=== PATIENT | male | born 1950 | race Caucasian/White ===

== ENCOUNTER 2016-10-17 11:04 | Inpatient (IN) | payer MEDICARE ==
[2016-10-17] MEDS ORDERED: IBUPROFEN IV 600 MG in SODIUM CHLORIDE 0.9% 250 ML IV STA (11:28)
[2016-10-17] MEDS ORDERED: SODIUM CHLORIDE 0.9% 1,000 ML IV STA (11:28)
--- NOTE | 2016-10-17 11:31 | ED ---
General Adult HPI - General Chief complaint: Weakness Stated complaint: revisit-infection Time Seen by Provider: 10/17/16 11:10 Source: patient, family, RN notes reviewed Mode of arrival: wheelchair Limitations: no limitations - History of Present Illness Initial comments: This is a 58-year-old male who presents emergency Department with a past medical history significant for multiple myeloma. Patient presents emergency Department after having been seen in the emergency department yesterday for diarrhea fever and was eventually diagnosed with a possible urinary tract infection. Patient states he went home he continued to have a fever and chills. Patient states he continues to have diarrhea. He has weakness is gotten worse and so he thought he come to the emergency department to be evaluated. Patient has been on a maintenance dose of chemotherapy up until October 04 at which point it was stopped because it did not seem to be effective any longer. Patient states he also has a moderate headache at this time. Patient denies any nausea or vomiting. Patient denies any chest pain or palpitations. Patient denies any cough or difficulty breathing. Patient denies any abdominal pain. Patient denies any dysuria however he does state he had a little bit of frequency. - Related Data Home Medications Medication Instructions Recorded Confirmed Acyclovir 400 mg PO BID 06/28/15 10/16/16 Levothyroxine Sodium [Synthroid] 50 mcg PO DAILY 06/28/15 10/16/16 Ranitidine HCl [Zantac] 150 mg PO HS PRN 06/28/15 10/16/16 Simvastatin [Zocor] 20 mg PO HS 06/28/15 10/16/16 Tamsulosin HCl [Flomax] 0.4 mg PO HS 06/28/15 10/16/16 Ubidecarenone [Co Q-10] 100 mg PO DAILY 06/28/15 10/16/16 Docusate [Colace] 100 mg PO BID 02/02/16 10/16/16 Calcium Carbonate/Vitamin D3 1 tab PO DAILY 02/07/16 10/16/16 [Calcium 600-Vit D3 400 Tablet] Dexamethasone [Hexadrol] 40 mg PO WEEKLY 04/25/16 10/16/16 Daratumumab [Darzalex] 400 mg IV DIRECTED 09/12/16 10/16/16 Pomalidomide [Pomalyst] 3 mg PO DIRECTED 09/12/16 10/16/16 Previous Rx's Medication Instructions Recorded HYDROcodone/APAP 10-325MG [[place] 1 each PO Q4H PRN #0 tab 02/11/16 10-325] Amoxicillin/Potassium Clav 1 tab PO Q12HR #20 tab 09/12/16 [Augmentin 875-125 Tablet] Sulfamethox-Tmp 800-160Mg [Bactrim 1 each PO Q12HR #20 tab 10/16/16 DS 800-160 mg] Allergies Allergy/AdvReac Type Severity Reaction Status Date / Time No Known Allergies Allergy Verified 10/17/16 11:12 Review of Systems ROS Statement: Those systems with pertinent positive or pertinent negative responses have been documented in the HPI. ROS Other: All systems not noted in ROS Statement are negative. Past Medical History Past Medical History: Cancer, GERD/Reflux, Hyperlipidemia, Sleep Apnea/CPAP/ BIPAP, Thyroid Disorder Additional Past Medical History / Comment(s): back fracture t-12, multiple myloma, skin cancer with removals upper back and forehead, hypothyroidism, [place] bilaterally, [place] with CPAP, unsteady gait with back pain. 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 Past Anesthesia/Blood Transfusion Reactions: No Reported Reaction Additional Past Anesthesia/Blood Transfusion Reaction / Comment(s): Pt received blood in past without reaction. 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 He is normally independent. He uses no assistive device. He drives. His gait is unsteady with his back pain. Smoking Status: Never smoker Past Alcohol Use History: Occasional Past Drug Use History: None Reported - Past Family History Mother Family Medical History: No Reported History Additional Family Medical History / Comment(s): Mother was healthy and lived to be 90 yrs old. Father Family Medical History: Cancer Additional Family Medical History / Comment(s): Father of pancreatic cancer at age 76 yrs. Brother(s) Family Medical History: Cancer General Exam - General Exam Comments Initial Comments: GENERAL: Patient is well-developed and well-nourished. Patient is nontoxic and well- hydrated and is in mild distress. ENT: Neck is soft and supple. No significant lymphadenopathy is noted. Oropharynx is clear. Moist mucous membranes. Neck has full range of motion without eliciting any pain. EYES: The sclera were anicteric and conjunctiva were pink and moist. Extraocular movements were intact and pupils were equal round and reactive to light. Eyelids were unremarkable. PULMONARY: Unlabored respirations. Good breath sounds bilaterally. No audible rales rhonchi or wheezing was noted. CARDIOVASCULAR: There is a regular rate and rhythm without any murmurs gallops or rubs. ABDOMEN: Soft and nontender with normal bowel sounds. No palpable organomegaly was noted. There is no palpable pulsatile mass. SKIN: Patient has a chronic rash on the right upper aspect of his chest in the center of his chest. Patient states this is part of his multiple myeloma NEUROLOGIC: Patient is alert and oriented x3. Cranial nerves II through XII are grossly intact. Motor and sensory are also intact. Normal speech, volume and content. Symmetrical smile. MUSCULOSKELETAL: Normal extremities with adequate strength and full range of motion. No lower extremity swelling or edema. No calf tenderness. LYMPHATICS: No significant lymphadenopathy is noted PSYCHIATRIC: Normal psychiatric evaluation. Normal interpersonal interactions appears functionally intact in deals appropriately with others. No signs of depression. Limitations: no limitations Course Vital Signs 10/17/16 11:09 Temperature 98.9 F Pulse Rate 90 Respiratory 20 Rate Blood Pressure 89/53 O2 Sat by Pulse 99 Oximetry Medical Decision Making - Medical Decision Making Patient 55 white cells in the urine so I started him on Rocephin and admitted the patient. - Lab Data Result diagrams: 10/17/16 12:10 10/17/16 12:10 Lab Results 10/17/16 10/17/16 10/17/16 Range/Units 12:05 12:10 12:10 WBC 5.6 (3.8-10.6) k/uL RBC 2.96 L (4.30-5.90) m/uL Hgb 10.0 L (13.0-17.5) gm/dL Hct 31.8 L (39.0-53.0) % MCV 107.4 H (80.0-100.0) fL MCH 33.9 (25.0-35.0) pg MCHC 31.5 (31.0-37.0) g/dL RDW 15.0 (11.5-15.5) % Plt Count 318 (150-450) k/uL Neutrophils % 90 % Lymphocytes % 3 % Monocytes % 4 % Eosinophils % 1 % Basophils % 0 % Neutrophils # 5.0 (1.3-7.7) k/uL Lymphocytes # 0.2 L (1.0-4.8) k/uL Monocytes # 0.2 (0-1.0) k/uL Eosinophils # 0.1 (0-0.7) k/uL Basophils # 0.0 (0-0.2) k/uL Manual Slide Review Performed Hypochromasia Moderate Poikilocytosis (manual Present Macrocytosis Marked Sodium 140 (137-145) mmol/L Potassium 3.6 (3.5-5.1) mmol/L Chloride 104 (98-107) mmol/L Carbon Dioxide 20 L (22-30) mmol/L Anion Gap 16 mmol/L BUN 14 (9-20) mg/dL Creatinine 0.91 (0.66-1.25) mg/dL Est GFR (MDRD) Af Amer >60 (>60 ml/min/1.73 sqM) Est GFR (MDRD) Non-Af >60 (>60 ml/min/1.73 sqM) Glucose 82 (74-99) mg/dL Plasma Lactic Acid Vinny (0.7-2.0) mmol/L Calcium 8.4 (8.4-10.2) mg/dL Total Bilirubin 0.6 (0.2-1.3) mg/dL AST 93 H (17-59) U/L ALT 190 H (21-72) U/L Alkaline Phosphatase 154 H (38-126) U/L Total Protein 5.1 L (6.3-8.2) g/dL Albumin 2.7 L (3.5-5.0) g/dL Urine Color Yellow Urine Appearance Cloudy (Clear) Urine pH 5.5 (5.0-8.0) Ur Specific [place] 1.027 (1.001-1.035) Urine Protein 2+ H (Negative) Urine Glucose (UA) Negative (Negative) Urine Ketones 2+ H (Negative) Urine Blood Small H (Negative) Urine Nitrate Negative (Negative) Urine Bilirubin 1+ H (Negative) Urine Urobilinogen 3.0 (<2.0) mg/dL Ur Leukocyte Esterase Large H (Negative) Urine RBC 11 H (0-5) /hpf Urine WBC 55 H (0-5) /hpf Ur Squamous Epith Cells 3 (0-4) /hpf Hyaline Casts 42 H (0-2) /lpf Urine Mucus Many H (None) /hpf 10/17/16 Range/Units 12:10 WBC (3.8-10.6) k/uL RBC (4.30-5.90) m/uL Hgb (13.0-17.5) gm/dL Hct (39.0-53.0) % MCV (80.0-100.0) fL MCH (25.0-35.0) pg MCHC (31.0-37.0) g/dL RDW (11.5-15.5) % Plt Count (150-450) k/uL Neutrophils % % Lymphocytes % % Monocytes % % Eosinophils % % Basophils % % Neutrophils # (1.3-7.7) k/uL Lymphocytes # (1.0-4.8) k/uL Monocytes # (0-1.0) k/uL Eosinophils # (0-0.7) k/uL Basophils # (0-0.2) k/uL Manual Slide Review Hypochromasia Poikilocytosis (manual Macrocytosis Sodium (137-145) mmol/L Potassium (3.5-5.1) mmol/L Chloride (98-107) mmol/L Carbon Dioxide (22-30) mmol/L Anion Gap mmol/L BUN (9-20) mg/dL Creatinine (0.66-1.25) mg/dL Est GFR (MDRD) Af Amer (>60 ml/min/1.73 sqM) Est GFR (MDRD) Non-Af (>60 ml/min/1.73 sqM) Glucose (74-99) mg/dL Plasma Lactic Acid Vinny 1.1 (0.7-2.0) mmol/L Calcium (8.4-10.2) mg/dL Total Bilirubin (0.2-1.3) mg/dL AST (17-59) U/L ALT (21-72) U/L Alkaline Phosphatase (38-126) U/L Total Protein (6.3-8.2) g/dL Albumin (3.5-5.0) g/dL Urine Color Urine Appearance (Clear) Urine pH (5.0-8.0) Ur Specific [place] (1.001-1.035) Urine Protein (Negative) Urine Glucose (UA) (Negative) Urine Ketones (Negative) Urine Blood (Negative) Urine Nitrate (Negative) Urine Bilirubin (Negative) Urine Urobilinogen (<2.0) mg/dL Ur Leukocyte Esterase (Negative) Urine RBC (0-5) /hpf Urine WBC (0-5) /hpf Ur Squamous Epith Cells (0-4) /hpf Hyaline Casts (0-2) /lpf Urine Mucus (None) /hpf Disposition Clinical Impression: Generalized weakness, Urinary tract infection, Diarrhea Disposition: ADMITTED IP TO THIS [facility] Time of Disposition: 14:19
[2016-10-17 12:21] LABS: Basophils % (A) 0 %; CHCM 30.9; Eosinophils # (A) 0.1 k/uL (0-0.7); Eosinophils % (A) 1 %; HCT 31.8 % (39.0-53.0); HDW 3.25; Hypochromasia Moderate; Luc % (Auto) 2; Lymphocytes # (A) 0.2 k/uL (1.0-4.8); Lymphocytes % (A) 3 %; MCH 33.9 pg (25.0-35.0); MCHC 31.5 g/dL (31.0-37.0); MCV 107.4 fL (80.0-100.0); Macrocytosis Marked; Mean Platelet Volume 7.3; Monocytes # (A) 0.2 k/uL (0-1.0); Monocytes % (A) 4 %; Neutrophils % (A) 90 %; RBC 2.96 m/uL (4.30-5.90); WBC 5.6 k/uL (3.8-10.6); WBC (Perox) 6.42
[2016-10-17 12:29] LABS: ALT 190 U/L (21-72); AST 93 U/L (17-59); Alkaline Phosphatase 154 U/L (38-126); Anion Gap 16 mmol/L; Blood Urea Nitrogen 14 mg/dL (9-20); Calcium 8.4 mg/dL (8.4-10.2); Carbon Dioxide 20 mmol/L (22-30); Chloride 104 mmol/L (98-107); Glucose 82 mg/dL (74-99); Non-African American GFR(MDRD) >60 (>60 ml/min/1.73 sqM); Potassium 3.6 mmol/L (3.5-5.1); Sodium 140 mmol/L (137-145); Total Bilirubin 0.6 mg/dL (0.2-1.3); Total Protein 5.1 g/dL (6.3-8.2)
[2016-10-17 12:42] LABS: Appearance,Urine Cloudy (Clear); Bilirubin,Urine 1+ (Negative); Glucose,Urine (UA) Negative (Negative); Ketones,Urine 2+ (Negative); Leukocyte Esterase,Urine Large (Negative); Mucus,Urine Many /hpf; Nitrite,Urine Negative (Negative); PH, Urine 5.5 (5.0-8.0); Particle Count 28623; Protein,Urine 2+ (Negative); RBC,Urine 11 /hpf (0-5); Specific Gravity,Urine 1.027 (1.001-1.035); Squamous Epithelial Cell,Urine 3 /hpf (0-4); UA Billing (MACRO vs. MICRO) MICRO; WBC,Urine 55 /hpf (0-5)
[2016-10-17 12:47] LABS: Manual Review Performed
[2016-10-17] MEDS ORDERED: SODIUM CHLORIDE 0.9% 1,000 ML IV ONE (14:19)
[2016-10-17 16:06] VITALS: BMI 25.8
[2016-10-17] MEDS ORDERED: HYDROcodone/APAP 5-325MG 1 EACH TAB PO PRN (16:22)
[2016-10-17] MEDS ORDERED: PROCHLORPERAZINE 10 MG TAB PO PRN (16:22)
[2016-10-17] MEDS ORDERED: HYDROCORTISONE 1% CREAM 30 GM TUBE TOPICAL PRN (16:24)
[2016-10-17] MEDS: TAMSULOSIN 0.4 MG CAP.ER.24H PO SCH (20:04)
[2016-10-17] MEDS: ATORVASTATIN 10 MG TAB PO SCH (20:04)
[2016-10-17] MEDS: ACYCLOVIR 200 MG CAP PO SCH (20:05)
[2016-10-18] MEDS: LEVOTHYROXINE 50 MCG TAB PO SCH (05:28)
[2016-10-18] MEDS: ACYCLOVIR 200 MG CAP PO SCH ×2 (07:25→21:38)
[2016-10-18] MEDS: PANTOPRAZOLE 40 MG TABLET PO SCH ×2 (07:25→07:26)
[2016-10-18] MEDS: ASPIRIN 81 MG CHEW PO SCH (07:36)
[2016-10-18] MEDS ORDERED: NON-FORMULARY DRUG (Ubidecarenone [Co Q-10] 100 MG) PO SCH (09:00)
--- NOTE | 2016-10-18 11:42 | P.CONS ---
History of Present Illness - Reason for Consult Consult date: 10/18/16 And progressive weakness. Progressive multiple myeloma - History of Present Illness The patient is a 66-year-old gentleman well known to our service. He was previously followed by Dr. Moon in the outpatient setting. He was diagnosed with multiple myeloma in [place] in 2009, when an x-ray following an injury to his right lower exudate revealed lytic lesions. He was treated with induction therapy with Velcade and Decadron, followed by autologous stem cell transplant in early 2010. He was then on maintenance Revlimid for about a year and then stopped it at his own request. He was then placed back on Revlimid and Decadron for about 6 months in late 2010-early 2011 because of rising M protein, again with a good response. He remained in remission until about the mid 2013. At that time he was placed on low-dose Velcade for maintenance. He continued on that until April 2015, at which time due to progressive increase in M protein, he was changed over to Kyprolis. However, by 07/02 he had developed progression with development of a plasmacytoma biopsy proven, in the upper sternal region. At this point he was referred to [facility], and continued care there. He has received radiation to the chest wall twice for plasmacytomas, as well as to the skull for the same. Medical treatments have included Kyprolis, Pomalyst, and Elotuzumab. Most recently, he was on Daratumumab and Pomalyst. On this regimen, though his protein electrophoresis studies did not show progression, he did develop progressive masses in the chest wall due to plasmacytomas. Therefore treatment was stopped on 10/04/2016. He was to follow -up on 10/21/[address] Flor at [facility] to discuss further options. About 2 weeks prior to this admission, the patient developed watery diarrhea. He states that a family member was also sick with same symptoms at the time. His symptoms, however persisted. Diarrhea was exacerbated by eating. He came into the ER for this complaint, on 10/16/2016. Urine studies appear to indicate a UTI and the patient was placed on an antibiotic. However he did not notice any relief of his symptoms. Actually, the patient did not complain of any urinary symptoms. He therefore came back to the ER yesterday. Urinalysis was again abnormal. He was therefore admitted for further management. He denies any blood or mucus in the stool. He has been having intermittent rigors, especially over the last 2-3 days. Review of Systems Constitutional: Reports chills, Reports fatigue, Reports weakness, Reports weight loss Eyes: denies blurred vision, denies pain Ears: deny: decreased hearing, ear discharge, earache, tinnitus Ears, nose, mouth and throat: Denies headache, Denies sore throat Cardiovascular: Reports decreased exercise tolerance Respiratory: Denies cough Gastrointestinal: Reports diarrhea Genitourinary: Reports as per HPI Musculoskeletal: Reports as per HPI (Progressive nodular lesions on upper chest wall) Integumentary: Reports as per HPI, Reports lesions Neurological: Reports weakness, Denies numbness Psychiatric: Denies anxiety, Denies depression Endocrine: Reports weight change Hematologic/Lymphatic: Reports as per HPI Allergic/Immunologic: Reports as per HPI Past Medical History Past Medical History: Cancer, GERD/Reflux, Hyperlipidemia, Sleep Apnea/CPAP/ BIPAP, Thyroid Disorder Additional Past Medical History / Comment(s): back fracture t-12, multiple myloma, skin cancer with removals upper back and forehead, hypothyroidism, [place] bilaterally, [place] with CPAP, unsteady gait with back pain. 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 Past Anesthesia/Blood Transfusion Reactions: No Reported Reaction Additional Past Anesthesia/Blood Transfusion Reaction / Comm: Pt received blood in past without reaction. 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 He is normally independent. He uses no assistive device. He drives. His gait is unsteady with his back pain. Smoking Status: Never smoker Past Alcohol Use History: Occasional Past Drug Use History: None Reported - Past Family History Mother Family Medical History: No Reported History Additional Family Medical History / Comment(s): Mother was healthy and lived to be 90 yrs old. Father Family Medical History: Cancer Additional Family Medical History / Comment(s): Father of pancreatic cancer at age 76 yrs. Brother(s) Family Medical History: Cancer Medications and Allergies Home Medications Medication Instructions Recorded Confirmed Type Acyclovir 400 mg PO BID 06/28/15 10/17/16 History Levothyroxine Sodium [Synthroid] 50 mcg PO DAILY 06/28/15 10/17/16 History Simvastatin [Zocor] 20 mg PO HS 06/28/15 10/17/16 History Tamsulosin HCl [Flomax] 0.4 mg PO HS 06/28/15 10/17/16 History Ubidecarenone [Co Q-10] 100 mg PO DAILY 06/28/15 10/17/16 History Calcium Carbonate/Vitamin D3 1 tab PO DAILY 02/07/16 10/17/16 History [Calcium 600-Vit D3 400 Tablet] Aspirin EC [Ecotrin Low Dose] 81 mg PO DAILY 10/17/16 10/17/16 History HYDROcodone/APAP 5-325MG [[place] 1 tab PO Q6HR PRN 10/17/16 10/17/16 History 5-325] Hydrocortisone Cream 10/17/16 History [Hydrocortisone 1% Cream] Omeprazole 20 mg PO DAILY 10/17/16 10/17/16 History Prochlorperazine [Compazine] 10 mg PO Q6H PRN 10/17/16 10/17/16 History Sulfamethox-Tmp 800-160Mg [Bactrim 1 tab PO Q12H 10/17/16 10/17/16 History DS 800-160 mg] Allergies Allergy/AdvReac Type Severity Reaction Status Date / Time No Known Allergies Allergy Verified 10/17/16 14:48 Physical Exam Vitals: Vital Signs Temp Pulse Pulse Resp BP BP Pulse Ox 10/18/16 07:00 98.6 F 91 16 111/58 95 10/17/16 22:07 98.7 F 97 16 116/56 96 10/17/16 16:32 97.6 F 71 18 107/57 99 10/17/16 14:35 98.2 F 72 20 102/55 97 Intake and Output 10/17/16 10/18/16 10/18/16 22:59 06:59 14:59 Intake Total 600 Balance 600 Intake: IV 600 Sodium Chloride 0.9% 1, 600 000 ml @ 75 mls/hr IV . [id number] Rx#:[id number] Other: Voiding Method Self-Catheterization Self-Catheterization Self-Catheterization # Voids 2 3 - Constitutional General appearance: no acute distress - EENT Eyes: EOMI, PERRLA ENT: hearing grossly normal, normal oropharynx - Neck Thyroid: bilateral: normal size - Respiratory Respiratory: bilateral: CTA - Cardiovascular Rhythm: regular Heart sounds: normal: S1, S2 - Gastrointestinal General gastrointestinal: normal bowel sounds, soft - Integumentary Dusky nodular lesions involving the upper chest wall on either side of the sternum - Neurologic Neurologic: CNII-XII intact - Musculoskeletal Musculoskeletal: strength equal bilaterally - Psychiatric Psychiatric: A&O x's 3, appropriate affect, intact judgment & insight Results CBC & Chem 7: 10/17/16 12:10 10/17/16 12:10 Labs: Microbiology - Last 24 Hours (Table) 10/17/16 18:00 Stool Culture - Preliminary Stool Chest x-ray: report reviewed Assessment and Plan (1) Diarrhea Narrative/Plan: The patient denies any passage of blood or mucus in the stool. Abdominal exam is fairly benign. Based on his clinical presentation, a viral etiology is suspected. In this situation, and infection can't be difficult to clear because of his depressed immunity. However, atypical infections are not ruled out. The case was discussed with the admitting service. Additional stool studies will be ordered. An ID consult was recommended. At this point we will treat supportively, pending additional investigations. I will check the patient 's immune protein levels. If normal immunoglobulin levels are low, he could benefit from an IVIG infusion. Status: Acute (2) Urinary tract infection Narrative/Plan: The patient actually has no urinary symptoms. Defer to the admitting service, as to whether he should be on antibacterial antibiotics for the same, pending cultures Status: Acute (3) Bicytopenia Narrative/Plan: This is related to underlying myeloma, as well as affects of treatment. However counts are all in a safe range and do not require acute intervention. Continue to follow. Status: Acute (4) Multiple myeloma Narrative/Plan: The patient's history and course so far, were reviewed from his records and are summarized in the HPI. The patient has progressive disease, manifested in the form of plasmacytomas, even though his protein electrophoresis studies are stable. He has failed multiple regimens as noted. He will follow up for the same at [facility] Status: Acute
[2016-10-18] MEDS: CALCIUM CARB-VIT D 500MG-200UN 1 EACH TAB PO SCH (11:46)
[2016-10-18] MEDS: SODIUM CHLORIDE 0.9% 1,000 ML IV SCH (11:48)
[2016-10-18] MEDS: DIPHENOX-ATROP 2.5-0.025 MG 1 EACH TAB PO PRN (13:54)
[2016-10-18] MEDS: ACETAMINOPHEN TAB 325 MG TAB PO PRN ×2 (14:38→21:39)
[2016-10-18] MEDS: TAMSULOSIN 0.4 MG CAP.ER.24H PO SCH (21:38)
[2016-10-18] MEDS: ATORVASTATIN 10 MG TAB PO SCH (21:38)
--- NOTE | 2016-10-18 23:38 | P.CONS ---
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 He has a known history of multiple myeloma. He was treated with induction therapy with Velcade and Decadron, followed by autologous stem cell transplant in early 2010. He was then on maintenance Revlimid for about a year and then stopped it at his own request. He was then placed back on Revlimid and Decadron for about 6 months in late 2010-early 2011 because of rising M protein, again with a good response. He remained in remission until about the mid 2013. At that time he was placed on low-dose Velcade for maintenance. He continued on that until April 2015, at which time due to progressive increase in M protein, he was changed over to Kyprolis. However, by 07/02 he had developed progression with development of a plasmacytoma biopsy proven, in the upper sternal region. At this point he was referred to [facility], and continued care there. He has received radiation to the chest wall twice for plasmacytomas, as well as to the skull for the same. Medical treatments have included Kyprolis, Pomalyst, and Elotuzumab. Most recently, he was on Daratumumab and Pomalyst. On this regimen, though his protein electrophoresis studies did not show progression, he did develop progressive masses in the chest wall due to plasmacytomas. Therefore treatment was stopped on 10/04/2016. He was to follow-up on 10/21/[address] Flor at [facility] to discuss further options. The patient is developed significant diarrhea since he stopped his chemotherapy in mid September. Because he was becoming much more weak and there was concern for urinary tract infection he was brought in the hospital. It with these concerns he infectious diseases consultation was requested. Stools tested negative for C. diff colitis at this point in time. Urine and blood cultures are in process. Initially said he is still feeling quite weak at this time. Review of Systems HEENT:Denies headache or acute visual change. Denies sinus or mouth discomforts. Denies neck stiffness or pain. Denies significant oral cavity pain. Denies difficulty on swallowing. Lungs: Denies significant shortness of breath, cough, sputum production, or hemoptysis. Cardiovascular: Denies significant shortness of breath, chest pain, chest wall pain, orthopnea, dyspnea on exertion, syncope Gastrointestinal:denies nausea but is having diarrhe Is not having much abdominal pain Musculoskeletal: denies significant myalgias or arthralgias. No new joint swelling. Denies new back pain. Skin:The skin is evidence of the difficulties from his plasmacytomas of anterior chest wall but no other new skin lesions are seen Neuro: has occasional headaches. Has genergeneralized weakness and uses a cane no recent falls Psychiatric:Denies anxiety or depression. Endocrine:Is has been having fatigue and weight loss Past Medical History Past Medical History: Cancer, GERD/Reflux, Hyperlipidemia, Sleep Apnea/CPAP/ BIPAP, Thyroid Disorder Additional Past Medical History / Comment(s): back fracture t-12, multiple myloma, skin cancer with removals upper back and forehead, hypothyroidism, [place] bilaterally, [place] with CPAP, unsteady gait with back pain. 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 Past Anesthesia/Blood Transfusion Reactions: No Reported Reaction Additional Past Anesthesia/Blood Transfusion Reaction / Comm: Pt received blood in past without reaction. 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 He is normally independent. he uses a cane He drives. His gait is unsteady with his back pain. 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 Is originally from [place] is moved back here in his intermediate. His 2 adult children live in [place] they do visit. No one has been ill. He does relate that his had a mild gastroenteritis that she quickly resolved. He believes he started with a gastroenteritis resolved and it came back and has been persistent. The spouse does relate that with his chemotherapy he has certainly had intermittent bouts of diarrhea but this seems to be about the worst that he has had. It is noted he has urinary retention and does straight cath 4 times a day. No experience. No international travel. No tobacco use. No recreational drug use Smoking Status: Never smoker Past Alcohol Use History: Occasional Past Drug Use History: None Reported - Past Family History Mother Family Medical History: No Reported History Additional Family Medical History / Comment(s): Mother was healthy and lived to be 90 yrs old. Father Family Medical History: Cancer Additional Family Medical History / Comment(s): Father of pancreatic cancer at age 76 yrs. Brother(s) Family Medical History: Cancer Medications and Allergies Home Medications and Allergies Comment(s): Current Medications Acetaminophen (Tylenol Tab) 650 mg PO Q6HR PRN PRN Reason: Fever and/ or Pain Last Admin: 10/18/16 21:39 Dose: 650 mg Acetaminophen/Hydrocodone Bitart ([place] 5-325) 1 each PO Q6HR PRN PRN Reason: Pain Last Admin: 10/18/16 16:26 Dose: 1 each Acyclovir (Zovirax) 400 mg PO BID [facility] Last Admin: 10/18/16 21:38 Dose: 400 mg Aspirin (Aspirin) 81 mg PO DAILY [facility] Last Admin: 10/18/16 07:36 Dose: 81 mg Atorvastatin Calcium (Lipitor) 10 mg PO HS [facility] Last Admin: 10/18/16 21:38 Dose: 10 mg Calcium Carbonate (Oscal 500+D) 1 each PO DAILY@1200 [facility] Last Admin: 10/18/16 11:46 Dose: 1 each Diphenoxylate HCl/Atropine (Lomotil) 1 each PO QID PRN PRN Reason: Diarrhea Last Admin: 10/18/16 13:54 Dose: 1 each Hydrocortisone (Hydrocortisone 1% Cream) 1 applic TOPICAL BID PRN PRN Reason: Skin Irritation Ceftriaxone Sodium 1,000 mg/ (Sodium Chloride) 50 mls @ 100 mls/hr IVPB Q24HR [facility] Last Admin: 10/18/16 07:26 Dose: 100 mls/hr Sodium Chloride (Saline 0.9%) 1,000 mls @ 40 mls/hr IV .Q24H [facility] Last Admin: 10/18/16 11:48 Dose: 40 mls/hr Levothyroxine Sodium (Synthroid) 50 mcg PO DAILY@0630 [facility] Last Admin: 10/18/16 05:28 Dose: 50 mcg Pantoprazole Sodium (Protonix) 40 mg PO AC-BRKFST [facility] Last Admin: 10/18/16 07:26 Dose: 40 mg Prochlorperazine Maleate (Compazine) 10 mg PO Q6H PRN PRN Reason: Nausea Tamsulosin HCl (Flomax) 0.4 mg PO [facility] Last Admin: 10/18/16 21:38 Dose: 0.4 mg Home Medications Medication Instructions Recorded Confirmed Type Acyclovir 400 mg PO BID 06/28/15 10/17/16 History Levothyroxine Sodium [Synthroid] 50 mcg PO DAILY 06/28/15 10/17/16 History Simvastatin [Zocor] 20 mg PO HS 06/28/15 10/17/16 History Tamsulosin HCl [Flomax] 0.4 mg PO HS 06/28/15 10/17/16 History Ubidecarenone [Co Q-10] 100 mg PO DAILY 06/28/15 10/17/16 History Calcium Carbonate/Vitamin D3 1 tab PO DAILY 02/07/16 10/17/16 History [Calcium 600-Vit D3 400 Tablet] Aspirin EC [Ecotrin Low Dose] 81 mg PO DAILY 10/17/16 10/17/16 History HYDROcodone/APAP 5-325MG [[place] 1 tab PO Q6HR PRN 10/17/16 10/17/16 History 5-325] Hydrocortisone Cream 10/17/16 History [Hydrocortisone 1% Cream] Omeprazole 20 mg PO DAILY 10/17/16 10/17/16 History Prochlorperazine [Compazine] 10 mg PO Q6H PRN 10/17/16 10/17/16 History Sulfamethox-Tmp 800-160Mg [Bactrim 1 tab PO Q12H 10/17/16 10/17/16 History DS 800-160 mg] Allergies Allergy/AdvReac Type Severity Reaction Status Date / Time No Known Allergies Allergy Verified 10/17/16 14:48 Physical Exam Vitals: Vital Signs Temp Pulse Pulse Resp BP Pulse Ox 10/18/16 22:29 98.4 F 73 16 100/51 97 10/18/16 16:00 102 H 16 10/18/16 15:00 100.1 F H 102 H 16 123/62 95 10/18/16 14:01 99 F 10/18/16 07:00 98.6 F 91 16 111/58 95 Intake and Output 10/18/16 10/18/16 10/19/16 14:59 22:59 06:59 Intake Total 790 Balance 790 Intake: Oral 790 Other: Voiding Method Self-Catheterization Self-Catheterization # Voids 1 2 # Bowel Movements 1 pleasant 66-year-old male seems to be comfortable at this carmine The complain of some mild headache HEENT: Anicteric conjunctiva are pink and moist nasal mucosa grossly intact without significant lesions, there is no thrush.excellent dentition Neck: The neck is supple without significant lymphadenopathy or thyromegaly. Lungs: Good bilateral air entry without significant crackles or wheezing. There is no significant bronchial sounds. There is no egophony or dullness. Heart: Regular rate and rhythm with an audible S1-S2, no S3 no S4. There is no significant murmur click or rub, PMI was nondisplaced. Abdomen: Positive bowel sounds soft and nontender without palpable masses or organomegaly. There was no guarding or rebound. Extremities: The upper extremities have excellent pulses they are symmetric, no significant petechiae or telangiectasia. No splinter hemorrhages were noted. The lower extremities are free from significant edema. The peripheral pulses were 2+ and symmetric. Neuro: Awake alert oriented to person place and time. There are no acute new gross focal sensory motor deficits. skin evidence of the marked abnormalit There is evidence of the distinct and marked tissue irregularity from the prior radiation and the t He relates that they are mildly pruritic but not painful Results CBC & Chem 7: 10/17/16 12:10 10/17/16 12:10 Labs: Microbiology - Last 24 Hours (Table) 10/17/16 18:00 Stool Culture - Preliminary Stool Laboratory Results WBC 5.6 k/uL (3.8-10.6) 10/17/16 12:10 RBC 2.96 m/uL (4.30-5.90) L 10/17/16 12:10 Hgb 10.0 gm/dL (13.0-17.5) L 10/17/16 12:10 Hct 31.8 % (39.0-53.0) L 10/17/16 12:10 MCV 107.4 fL (80.0-100.0) H 10/17/16 12:10 MCH 33.9 pg (25.0-35.0) 10/17/16 12:10 MCHC 31.5 g/dL (31.0-37.0) 10/17/16 12:10 RDW 15.0 % (11.5-15.5) 10/17/16 12:10 Plt Count 318 k/uL (150-450) 10/17/16 12:10 Neutrophils % 90 % 10/17/16 12:10 Lymphocytes % 3 % 10/17/16 12:10 Monocytes % 4 % 10/17/16 12:10 Eosinophils % 1 % 10/17/16 12:10 Basophils % 0 % 10/17/16 12:10 Neutrophils # 5.0 k/uL (1.3-7.7) 10/17/16 12:10 Lymphocytes # 0.2 k/uL (1.0-4.8) L 10/17/16 12:10 Monocytes # 0.2 k/uL (0-1.0) 10/17/16 12:10 Eosinophils # 0.1 k/uL (0-0.7) 10/17/16 12:10 Basophils # 0.0 k/uL (0-0.2) 10/17/16 12:10 Manual Slide Review Performed 10/17/16 12:10 Hypochromasia Moderate 10/17/16 12:10 Poikilocytosis (manual Present 10/17/16 12:10 Macrocytosis Marked 10/17/16 12:10 Sodium 140 mmol/L (137-145) 10/17/16 12:10 Potassium 3.6 mmol/L (3.5-5.1) 10/17/16 12:10 Chloride 104 mmol/L (98-107) 10/17/16 12:10 Carbon Dioxide 20 mmol/L (22-30) L 10/17/16 12:10 Anion Gap 16 mmol/L 10/17/16 12:10 BUN 14 mg/dL (9-20) 10/17/16 12:10 Creatinine 0.91 mg/dL (0.66-1.25) 10/17/16 12:10 Est GFR (MDRD) Af Amer >60 (>60 ml/min/1.73 sqM) 10/17/16 12:10 Est GFR (MDRD) Non-Af >60 (>60 ml/min/1.73 sqM) 10/17/16 12:10 Glucose 82 mg/dL (74-99) 10/17/16 12:10 Plasma Lactic Acid Vinny 1.1 mmol/L (0.7-2.0) 10/17/16 12:10 Calcium 8.4 mg/dL (8.4-10.2) 10/17/16 12:10 Total Bilirubin 0.6 mg/dL (0.2-1.3) 10/17/16 12:10 AST 93 U/L (17-59) H 10/17/16 12:10 ALT 190 U/L (21-72) H 10/17/16 12:10 Alkaline Phosphatase 154 U/L (38-126) H 10/17/16 12:10 Total Protein 5.1 g/dL (6.3-8.2) L 10/17/16 12:10 Albumin 2.7 g/dL (3.5-5.0) L 10/17/16 12:10 Urine Color Yellow 10/17/16 12:05 Urine Appearance Cloudy (Clear) 10/17/16 12:05 Urine pH 5.5 (5.0-8.0) 10/17/16 12:05 Ur Specific [place] 1.027 (1.001-1.035) 10/17/16 12:05 Urine Protein 2+ (Negative) H 10/17/16 12:05 Urine Glucose (UA) Negative (Negative) 10/17/16 12:05 Urine Ketones 2+ (Negative) H 10/17/16 12:05 Urine Blood Small (Negative) H 10/17/16 12:05 Urine Nitrate Negative (Negative) 10/17/16 12:05 Urine Bilirubin 1+ (Negative) H 10/17/16 12:05 Urine Urobilinogen 3.0 mg/dL (<2.0) 10/17/16 12:05 Ur Leukocyte Esterase Large (Negative) H 10/17/16 12:05 Urine RBC 11 /hpf (0-5) H 10/17/16 12:05 Urine WBC 55 /hpf (0-5) H 10/17/16 12:05 Ur Squamous Epith Cells 3 /hpf (0-4) 10/17/16 12:05 Hyaline Casts 42 /lpf (0-2) H 10/17/16 12:05 Urine Mucus Many /hpf (None) H 12/31/16 12:05 C. difficile (EIA) Intrp Negative (Negative) 10/17/16 18:00 Microbiology 10/17/16 12:05 Urine,Catheterized Urine Culture - Final 10/17/16 12:10 Blood Blood Culture - Preliminary No Growth after 24 hours 10/17/16 18:00 Stool Stool Culture - Preliminary Assessment and Plan (1) Multiple myeloma Status: Acute (2) Diarrhea Status: Acute (3) Urinary tract infection Narrative/Plan: 58-year-old male who has an extensive past medical history regarding his multiple myeloma, his many treatments that included radiation therapy as well as multiple chemotherapies. He has completed his recent course of chemotherapy and is to follow-up with his oncologist at [facility] the near future. For potential new regiment due to failing of current regiment. He is currently symptomatic with diarrhea which is beyond his usual symptoms. Also concerned to the difficulty of urinary tract infection given his obstructive uropathy and need for recurrent self catheterizations. Cultures are in process. Urinalysis was markedly abnormal. Antibiotic therapy with ceftriaxone is being given. Stool studies are in process and C. diff toxin is negative so far. Stool cultures are in process. A viral gastroenteritis or bacterial gastritis or of concern given his ongoing symptoms. Could all be related to his recent courses of chemotherapy. He does not take probiotic therapy. Does not like yogurt. We discussed the benefits of probiotic therapy and maybe consider that in the near future. Status: Acute (4) Obstructive uropathy Status: Acute
[2016-10-19] MEDS: SODIUM CHLORIDE 0.9% 1,000 ML IV SCH (01:55)
[2016-10-19] MEDS: LEVOTHYROXINE 50 MCG TAB PO SCH (06:12)
[2016-10-19] MEDS: ACETAMINOPHEN TAB 325 MG TAB PO PRN ×3 (08:05→22:14)
[2016-10-19] MEDS: ACYCLOVIR 200 MG CAP PO SCH ×2 (08:06→22:11)
[2016-10-19] MEDS: ASPIRIN 81 MG CHEW PO SCH (08:06)
[2016-10-19] MEDS: PANTOPRAZOLE 40 MG TABLET PO SCH (08:06)
--- NOTE | 2016-10-19 08:18 | HP ---
DATE OF ADMISSION: 10/17/2016 CHIEF COMPLAINT: Progressive weakness and diarrhea. HISTORY OF PRESENT ILLNESS: This is a 66-year-old, male with a past medical history for multiple ( ) since 2009, presents to the hospital with progressive weakness and ongoing diarrhea. According to the patient, he was diagnosed with multiple myeloma, more than 6 years ago in 2009 with random x-ray showing lytic lesion. Patient was treated by induction therapy followed by autologous stem cell transplant in early 2010. Patient continued to be following up with Dr. Moon regarding his multiple myeloma and remained in remission until recently. The patient had worsening of his disease and symptoms and developed plasmacytoma and biopsy proven in the upper sternal region and the patient at that point was referred to [facility] for further evaluation. The patient received ( ) recent dose of chemotherapy on 10/04/2016 and treatment was ( ) because ( ) in the progress of masses chest wall and ( ) plasmacytomas. Patient since that time developed diarrhea that he believes that it was related to a viral illness as other family member had the same symptoms and since that time the diarrhea is not resolving and ( ) stool followed by each meal that he eats and thinks it is fluctuating between 2 to 4 times a day. No blood noticed in the stool. The patient admits having nausea. No vomiting. Not sure about weight loss, but he is suggesting couple pounds weight loss in the last in 2 weeks given that ( ) from food and worsening diarrhea. The patient is feeling progressively worse where as his energy level became much lower than before and decided to come into the emergency department. Patient is self-catheterization for his urinary retention and that was related to nerve damage related to his cancer and chemotherapy. Denied any recent urinary symptoms and said that he has been doing intermittent cath without any difficulty. Currently the patient feels slightly better after receiving fluid. Denying chest pain, shortness breath, nausea, vomiting, abdominal pain, dizziness, lightheadedness, or blurry vision. REVIEW OF SYSTEMS: All 14 systems reviewed and negative except as above. PAST MEDICAL AND SURGICAL HISTORY: 1. Multiple myeloma. 2. GERD. 3. Hyperlipidemia. 4. Obstructive sleep apnea on CPAP. 5. Hypothyroidism. 6. Skin cancer removal of back and forehead. 7. Unsteady gait, uses a cane. 8. T12 fracture and orthopedic surgery. 9. Tonsillectomy. 10. Left femur titanium krystal. 11. Kyphoplasty in October 2015 for T12 fracture. 12. Colonoscopy which was normal. SOCIAL HISTORY: The patient is a retired ( ) is still independent in all activity and ambulates with a cane. Denies history of tobacco, alcohol or drug abuse. FAMILY HISTORY: Mother healthy and alive at age 90, father of pancreatic cancer, age 76. HOME MEDICATIONS: 1. Acyclovir. 2. Levothyroxine. 3. Zocor. 4. Flomax. 5. Co-Q-enzyme 10. 6. Vitamin D with calcium supplement. 7. ( ). 8. [place] as needed. 9. Hydrocortisone cream. 10. Omeprazole. 11. Compazine. 12. Bactrim. ALLERGIES: No known drug allergies. PHYSICAL EXAMINATION: VITAL SIGNS: Reviewed and stable. General ( ) stated age, in no acute distress. HEENT: Atraumatic, normocephalic. PERRLA. NECK: Supple, no masses. No thyromegaly. LUNGS: Clear to auscultation bilaterally. HEART: Normal S1, S2. ABDOMEN: Soft, no tenderness ( ) upper quadrant. LOWER EXTREMITIES: No edema. PSYCH: Alert and oriented x3, relaxed mood and affect. NEUROLOGICAL: No focal deficit. Cranial nerves II through XII intact. Normal ( ) and sensation. Imaging and labs: On presentation to the emergency hemoglobin was found to be 10, normal CBC otherwise. Chem-7 revealed stable findings. C. dif was negative. Stool culture are pending, negative. Urine culture is still pending. ASSESSMENT AND PLAN: 1. Generalized weakness. 2. Ongoing diarrhea ( ) to be negative. I would like to start the patient on Imodium ( ) times daily as needed after each bowel movement. I had a long discussion with the patient and with Dr. Brody from Oncology, felt that his diarrhea is likely that he could be related to his chemotherapy which was discontinued on 10/04/2016. Suspicion for infection process is higher on the list. I would like to consult infectious disease Dr. Leon for further evaluation and to rule out any underlying condition in this immunosuppressed patient. We will continue with gentle hydration. We will increase oral intake and treat patient's nausea with Zofran as needed. Patient is agreeable to the current treatment plan and we will follow-up on him closely. Dr. Brody will ( ) immune protein levels and ( ) would like to consider IV Ig infusion. 3. ( ) infection, the patient was taking Bactrim at home. I would like to ( ) here in the hospital, obtain urine culture and follow up on culture results. Patient on self-intermittent cath for a long time. We will continue current regimen. 4. Gait debility. We will have PT, OT evaluate the patient prior to discharge, continue using a cane during this hospital stay. 5. Hyperlipidemic, Zocor. 6. Hypothyroidism, continue Synthroid. 7. Benign prostatic hypertrophy. Will continue Flomax. 8. Chronic pain syndrome. Will continue with [place] as needed. 9. ( ) omeprazole. 10. ( ). 11. Multiple myeloma per oncology ( ) recommendations.
[2016-10-19] MEDS: CALCIUM CARB-VIT D 500MG-200UN 1 EACH TAB PO SCH (11:27)
[2016-10-19] MEDS: metroNIDAZOLE 500 MG TAB PO SCH ×3 (11:27→22:11)
[2016-10-19 12:48] LABS: Hepatitis B Surface Ag Index 0.04
[2016-10-19 12:53] LABS: Hepatitis B Core IgM Index 0.01
[2016-10-19 13:05] LABS: Hepatitis C Virus IgG Index 0.01
[2016-10-19 13:11] LABS: Hepatitis C Virus IgG Ab Negative (Negative)
[2016-10-19] MEDS: TAMSULOSIN 0.4 MG CAP.ER.24H PO SCH (22:11)
[2016-10-19] MEDS: ATORVASTATIN 10 MG TAB PO SCH (22:11)
[2016-10-20 04:12] LABS: Immunoglobulin G 333 mg/dL (700 - 1600)
[2016-10-20] MEDS: ACETAMINOPHEN TAB 325 MG TAB PO PRN ×3 (05:35→19:20)
[2016-10-20] MEDS: LEVOTHYROXINE 50 MCG TAB PO SCH (06:20)
--- NOTE | 2016-10-20 08:06 | PN ---
INTERVAL HISTORY: The patient spiked a fever of 101.2 this morning and the highest temperature in the last 24 hours since admission was 100.2. Patient said that he got rigors during the fever and feels slightly better today as he had no bowel movement since yesterday morning when he had his last semi-solid bowel movement. The patient did not need any Imodium since admission as his diarrhea subsided on its own. PHYSICAL EXAMINATION: VITAL SIGNS: As mentioned above. LUNGS: Clear to auscultation bilaterally. HEART: Normal S1, S2. ABDOMEN: Soft, no tenderness. Positive bowel sounds in all 4 quadrants. LOWER EXTREMITIES: No edema. PSYCH: Alert and oriented x3. SKIN: No new rash. IMAGING AND LABS: Reviewed. All the cultures are still pending, negative. ASSESSMENT AND PLAN: 1. New onset fever. Patient said that he had subjective fever at home, but not sure how high was his fever. Blood cultures was done x1 in the emergency and I would like to repeat another blood culture today. Followup on cultures results. Follow up on urine culture result as well. The patient will be continue on Rocephin, but I would like to add Flagyl for any possibility of intra-abdominal process. I explained to the patient and the family that this fever could represent early sepsis and possible infection given his immunosuppressant condition and the sources can be, but not limited to urinary tract infection given the self-catheterization and intra-abdominal process could be another option as patient has been experiencing diarrhea for 2 weeks, but seems to be improving right now. I would like to obtain chest x-ray to evaluate for any possibility of new onset pneumonia. 2. Generalized weakness seems to be improving. Will continue with PT and OT. 3. Intractable pain seems to be controlled with [place]. 4. Hypothyroidism. Will continue Synthroid. 5. Prognosis is still guarded.
[2016-10-20] MEDS ORDERED: IMMUNE GLOBULIN 1 GM/10 ML VL IV ONE (08:12)
[2016-10-20] MEDS: ACYCLOVIR 200 MG CAP PO SCH ×2 (08:37→21:29)
[2016-10-20] MEDS: ASPIRIN 81 MG CHEW PO SCH (08:37)
[2016-10-20] MEDS: metroNIDAZOLE 500 MG TAB PO SCH ×3 (08:38→21:29)
[2016-10-20] MEDS: PANTOPRAZOLE 40 MG TABLET PO SCH (08:38)
[2016-10-20] MEDS: DIPHENOX-ATROP 2.5-0.025 MG 1 EACH TAB PO PRN (08:42)
[2016-10-20] MEDS ORDERED: IMMUNE GLOBULIN (HUMAN-IGG) 20 GM in EMPTY BAG 1 BAG IV ONE ×2 (09:00→12:00)
[2016-10-20] MEDS: SODIUM CHLORIDE 0.9% 1,000 ML IV SCH (11:59)
[2016-10-20] MEDS: CALCIUM CARB-VIT D 500MG-200UN 1 EACH TAB PO SCH (13:01)
--- NOTE | 2016-10-20 14:25 | XR ---
EXAMINATION TYPE: XR chest 2V DATE OF EXAM: 10/19/2016 1:32 PM COMPARISON: Prior chest x-ray 16 October 2016 HISTORY: Pneumonia TECHNIQUE: Frontal and lateral views of the chest are obtained. FINDINGS: There is no focal air space opacity or pneumothorax seen. The cardiac silhouette size is accentuated possibly due to rotation. Blunting of the costophrenic costophrenic angles may be indica tive of small effusions. Multiple compression deformities are present with a resulting kyphosis near the thoracic lumbar junction. The patient is rotated. The osseous structures are intact. IMPRESSION: Cardiomegaly appears stable. There may be small pleural effusions. Additional findings a ceasar.
--- NOTE | 2016-10-20 17:22 | P.PN ---
Subjective Principal diagnosis: weakness Pt seen today in follow up, he has not had a fever, nausea, cough, abd pain, bloating, he had a formed BM today, no bleeding, he is ambulating, appetite is fair. Objective - Vital Signs Vital signs: Vital Signs Temp 99 F 10/20/16 14:46 Pulse 89 10/20/16 14:46 Resp 16 10/20/16 14:46 BP 91/50 10/20/16 14:46 Pulse Ox 95 10/20/16 14:46 Intake & Output 10/19/16 10/20/16 10/20/16 18:59 06:59 18:59 Intake Total 350 1630 77.783 Balance 350 1630 77.783 Intake: Intake, IV Titration 350 77.783 Amount Immune Globulin (Human- 77.783 IgG) 20 gm In Empty Bag 1 bag @ Titrate IV .Q0M [facility] Rx#:[id number] Sodium Chloride 0.9% 1, 300 000 ml @ 40 mls/hr IV . Q24H [facility] Rx#:[id number] cefTRIAXone 1,000 mg In 50 Sodium Chloride 0.9% 50 ml @ 100 mls/hr IVPB Q24HR [facility] Rx#:[id number] Oral 1630 Other: Voiding Method Self-Catheterization Self-Catheterization Self-Catheterization # Voids 1 - Exam pt sitting up in bed, respirations even and unlabored, no distress noted. - Constitutional General appearance: Present: average body habitus, cooperative, no acute distress - Labs CBC & Chem 7: 10/17/16 12:10 10/17/16 12:10 Labs: Microbiology - Last 24 Hours (Table) 10/19/16 10:34 Blood Culture - Preliminary Blood No Growth after 24 hours 10/17/16 18:00 Stool Culture - Preliminary Stool Assessment and Plan (1) Multiple myeloma Narrative/Plan: Follow up at [facility] Status: Chronic (2) Hypogammaglobulinemia Narrative/Plan: Secondary to myeloma, IVIG ordered for infusion. Status: Acute
[2016-10-20] MEDS: ATORVASTATIN 10 MG TAB PO SCH (21:29)
[2016-10-20] MEDS: TAMSULOSIN 0.4 MG CAP.ER.24H PO SCH (21:29)
--- NOTE | 2016-10-20 22:12 | P.PN ---
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 He has a known history of multiple myeloma. He was treated with induction therapy with Velcade and Decadron, followed by autologous stem cell transplant in early 2010. He was then on maintenance Revlimid for about a year and then stopped it at his own request. He was then placed back on Revlimid and Decadron for about 6 months in late 2010-early 2011 because of rising M protein, again with a good response. He remained in remission until about the mid 2013. At that time he was placed on low-dose Velcade for maintenance. He continued on that until April 2015, at which time due to progressive increase in M protein, he was changed over to Kyprolis. However, by 07/02 he had developed progression with development of a plasmacytoma biopsy proven, in the upper sternal region. At this point he was referred to [facility], and continued care there. He has received radiation to the chest wall twice for plasmacytomas, as well as to the skull for the same. Medical treatments have included Kyprolis, Pomalyst, and Elotuzumab. Most recently, he was on Daratumumab and Pomalyst. On this regimen, though his protein electrophoresis studies did not show progression, he did develop progressive masses in the chest wall due to plasmacytomas. Therefore treatment was stopped on 10/04/2016. He was to follow-up on 10/21/[address] Flor at [facility] to discuss further options. The patient is developed significant diarrhea since he stopped his chemotherapy in mid September. Because he was becoming much more weak and there was concern for urinary tract infection he was brought in the hospital. It with these concerns he infectious diseases consultation was requested. Stools tested negative for C. diff colitis at this point in time. Urine and blood cultures are in process and remain negative at this time. Relates that his weakness is improved. He is able to eat some outside food and this enjoyed that. Has no other acute new symptoms at this time. Objective - Vital Signs Vital signs: Vital Signs Temp 99.3 F 10/20/16 21:25 Pulse 89 10/20/16 14:46 Resp 16 10/20/16 14:46 BP 91/50 10/20/16 14:46 Pulse Ox 95 10/20/16 14:46 Intake & Output 10/20/16 10/20/16 10/21/16 06:59 18:59 06:59 Intake Total 1630 77.783 Balance 1630 77.783 Intake: Intake, IV Titration 77.783 Amount Immune Globulin (Human- 77.783 IgG) 20 gm In Empty Bag 1 bag @ Titrate IV .Q0M ONE Rx#:[id number] Oral 1630 Other: Voiding Method Self-Catheterization Self-Catheterization # Voids 1 2 # Bowel Movements 1 - Exam pleasant 66-year-old male seems to be comfortable at this carmine The complain of some mild headache HEENT: Anicteric conjunctiva are pink and moist nasal mucosa grossly intact without significant lesions, there is no thrush.excellent dentition Neck: The neck is supple without significant lymphadenopathy or thyromegaly. Lungs: Good bilateral air entry without significant crackles or wheezing. There is no significant bronchial sounds. There is no egophony or dullness. Heart: Regular rate and rhythm with an audible S1-S2, no S3 no S4. There is no significant murmur click or rub, PMI was nondisplaced. Abdomen: Positive bowel sounds soft and nontender without palpable masses or organomegaly. There was no guarding or rebound. Extremities: The upper extremities have excellent pulses they are symmetric, no significant petechiae or telangiectasia. No splinter hemorrhages were noted. The lower extremities are free from significant edema. The peripheral pulses were 2+ and symmetric. Neuro: Awake alert oriented to person place and time. There are no acute new gross focal sensory motor deficits. skin evidence of the marked abnormalit There is evidence of the distinct and marked tissue irregularity from the prior radiation to the anterior chest wall He relates that they are mildly pruritic but not painful - Labs CBC & Chem 7: 10/17/16 12:10 10/17/16 12:10 Labs: Microbiology - Last 24 Hours (Table) 10/17/16 18:00 Stool Culture - Final Stool 10/19/16 10:34 Blood Culture - Preliminary Blood No Growth after 24 hours Laboratory Results WBC 5.6 k/uL (3.8-10.6) 10/17/16 12:10 RBC 2.96 m/uL (4.30-5.90) L 10/17/16 12:10 Hgb 10.0 gm/dL (13.0-17.5) L 10/17/16 12:10 Hct 31.8 % (39.0-53.0) L 10/17/16 12:10 MCV 107.4 fL (80.0-100.0) H 10/17/16 12:10 MCH 33.9 pg (25.0-35.0) 10/17/16 12:10 MCHC 31.5 g/dL (31.0-37.0) 10/17/16 12:10 RDW 15.0 % (11.5-15.5) 10/17/16 12:10 Plt Count 318 k/uL (150-450) 10/17/16 12:10 Neutrophils % 90 % 10/17/16 12:10 Lymphocytes % 3 % 10/17/16 12:10 Monocytes % 4 % 10/17/16 12:10 Eosinophils % 1 % 10/17/16 12:10 Basophils % 0 % 10/17/16 12:10 Neutrophils # 5.0 k/uL (1.3-7.7) 10/17/16 12:10 Lymphocytes # 0.2 k/uL (1.0-4.8) L 10/17/16 12:10 Monocytes # 0.2 k/uL (0-1.0) 10/17/16 12:10 Eosinophils # 0.1 k/uL (0-0.7) 10/17/16 12:10 Basophils # 0.0 k/uL (0-0.2) 10/17/16 12:10 Manual Slide Review Performed 10/17/16 12:10 Hypochromasia Moderate 10/17/16 12:10 Poikilocytosis (manual Present 10/17/16 12:10 Macrocytosis Marked 10/17/16 12:10 Sodium 140 mmol/L (137-145) 10/17/16 12:10 Potassium 3.6 mmol/L (3.5-5.1) 10/17/16 12:10 Chloride 104 mmol/L (98-107) 10/17/16 12:10 Carbon Dioxide 20 mmol/L (22-30) L 10/17/16 12:10 Anion Gap 16 mmol/L 10/17/16 12:10 BUN 14 mg/dL (9-20) 10/17/16 12:10 Creatinine 0.91 mg/dL (0.66-1.25) 10/17/16 12:10 Est GFR (MDRD) Af Amer >60 (>60 ml/min/1.73 sqM) 10/17/16 12:10 Est GFR (MDRD) Non-Af >60 (>60 ml/min/1.73 sqM) 10/17/16 12:10 Glucose 82 mg/dL (74-99) 10/17/16 12:10 Plasma Lactic Acid Vinny 1.1 mmol/L (0.7-2.0) 10/17/16 12:10 Calcium 8.4 mg/dL (8.4-10.2) 10/17/16 12:10 Total Bilirubin 0.6 mg/dL (0.2-1.3) 10/17/16 12:10 AST 93 U/L (17-59) H 10/17/16 12:10 ALT 190 U/L (21-72) H 10/17/16 12:10 Alkaline Phosphatase 154 U/L (38-126) H 10/17/16 12:10 Total Protein 5.1 g/dL (6.3-8.2) L 10/17/16 12:10 Total Protein (PEP) 5.1 g/dL (6.2-8.2) L 10/17/16 12:00 Albumin 2.7 g/dL (3.5-5.0) L 10/17/16 12:10 Albumin (PEP) 2.50 g/dL (3.80-4.90) L 10/17/16 12:00 Iwnsv-4-Yiqbdlump 0.34 g/dL (0.10-0.40) 10/17/16 12:00 Qvrdl-3-Gdqlzwfxx 1.15 g/dL (0.60-1.00) H 10/17/16 12:00 Beta Globulins 0.95 g/dL (0.60-1.30) 10/17/16 12:00 Gamma Globulins 0.16 g/dL (0.70-1.50) L 10/17/16 12:00 PEP Interpretation SEE NOTE 10/17/16 12:00 Urine Color Yellow 10/17/16 12:05 Urine Appearance Cloudy (Clear) 10/17/16 12:05 Urine pH 5.5 (5.0-8.0) 10/17/16 12:05 Ur Specific [place] 1.027 (1.001-1.035) 10/17/16 12:05 Urine Protein 2+ (Negative) H 10/17/16 12:05 Urine Glucose (UA) Negative (Negative) 10/17/16 12:05 Urine Ketones 2+ (Negative) H 10/17/16 12:05 Urine Blood Small (Negative) H 10/17/16 12:05 Urine Nitrate Negative (Negative) 10/17/16 12:05 Urine Bilirubin 1+ (Negative) H 10/17/16 12:05 Urine Urobilinogen 3.0 mg/dL (<2.0) 10/17/16 12:05 Ur Leukocyte Esterase Large (Negative) H 10/17/16 12:05 Urine RBC 11 /hpf (0-5) H 10/17/16 12:05 Urine WBC 55 /hpf (0-5) H 10/17/16 12:05 Ur Squamous Epith Cells 3 /hpf (0-4) 10/17/16 12:05 Hyaline Casts 42 /lpf (0-2) H 10/17/16 12:05 Urine Mucus Many /hpf (None) H 10/17/16 12:05 IgG 333 mg/dL (700 - 1600) L 10/17/16 12:00 IgA <27 mg/dL (70 - 400) L 10/17/16 12:00 IgM <20 mg/dL (40 - 230) L 10/17/16 12:00 C. difficile (EIA) Intrp Negative (Negative) 10/17/16 18:00 Hepatitis A IgM Ab NEGATIVE 10/18/16 18:16 Hep Bs Antigen Negative 10/18/16 18:16 Hep B Core IgM Ab NEGATIVE 10/18/16 18:16 Hep C IgG Ab Negative (Negative) 10/18/16 18:16 Microbiology 10/17/16 18:00 Stool Stool Culture - Final 10/17/16 12:10 Blood Blood Culture - Preliminary No Growth after 72 hours 10/19/16 10:34 Blood Blood Culture - Preliminary No Growth after 24 hours 10/17/16 12:05 Urine,Catheterized Urine Culture - Final Assessment and Plan (1) Multiple myeloma Status: Chronic (2) Diarrhea Status: Acute (3) Urinary tract infection Narrative/Plan: 58-year-old male who has an extensive past medical history regarding his multiple myeloma, his many treatments that included radiation therapy as well as multiple chemotherapies. He has completed his recent course of chemotherapy and is to follow-up with his oncologist at [facility] the near future. For potential new regiment due to failing of current regiment. He is currently symptomatic with diarrhea which is beyond his usual symptoms. Also concerned to the difficulty of urinary tract infection given his obstructive uropathy and need for recurrent self catheterizations. Cultures are in process. Urinalysis was markedly abnormal. Antibiotic therapy with ceftriaxone is being given. Stool studies are in process and C. diff toxin is negative so far. Stool cultures are in process. A viral gastroenteritis or bacterial gastritis or of concern given his ongoing symptoms. Could all be related to his recent courses of chemotherapy. He does not take probiotic therapy. Does not like yogurt. We discussed the benefits of probiotic therapy and maybe consider that in the near future. The IgG level comes back in 333 and is very low. Because will receive some intravenous immunoglobulin to see if this cannot improve his overall status. Cultures are negative but urinalysis was markedly abnormal. His father well to current antibiotic therapy of ceftriaxone. As he improves and is ready for discharge to home a completion course of cefuroxime 500 mg every 12 hours to be utilized for a week. Status: Acute (4) Obstructive uropathy Status: Acute
[2016-10-21] MEDS: ACETAMINOPHEN TAB 325 MG TAB PO PRN ×2 (01:00→12:19)
[2016-10-21] MEDS: LEVOTHYROXINE 50 MCG TAB PO SCH (06:16)
--- NOTE | 2016-10-21 07:50 | PN ---
INTERVAL HISTORY: Patient continued to be hemodynamically stable. No major events reported by nursing staff. Patient had the highest temperature of 100.3 in the last 24 hours but patient asking for Tylenol for his rigors. Patient stated that he had one loose bowel movement this morning and that is the only one in the last 24 hours. Patient denied any difficulty with straight cath and said that he has been doing it regularly, patient started IVIG infusion by Hematology/Oncology and has been tolerating well without difficulty. PHYSICAL EXAMINATION: Vital signs are stable. LUNGS: Clear to auscultation bilaterally. HEART: Normal S1, S2. ABDOMEN: Soft, no tenderness, positive bowel sounds in all four quadrants. SKIN: Positive for mediastinum erythema and lymph node also stable from prior examination. LOWER EXTREMITY: No edema. PSYCH: Alert and oriented x3. IMAGING AND LABS: Blood cultures, urine culture, all still pending negative, stool is negative for C. diff. ASSESSMENT AND PLAN: 1. Fever, recurrent, source is still unidentified, cultures are pending negative. I would like to discuss with Infectious Disease the possibility of obtaining a CAT scan of the abdomen. Patient was started on Flagyl yesterday on top of his Rocephin which was started in the emergency department. I would like to continue with both antibiotics right now. 2. Multiple myeloma with ( ) treatment recently, IVIG was started by Hematology/Oncology. Patient advised to keep his treatment on hold right now giving the weak immune system and he agreed along with his after long discussion. 3. Hypertension under fair control. 4. Debility and weakness. Will have PT, OT evaluate the patient prior to discharge from the hospital.
[2016-10-21 07:51] VITALS: BP 126/62; PULSE 93; RESP 16; TEMP 98.8
[2016-10-21] MEDS: ACYCLOVIR 200 MG CAP PO SCH (09:15)
[2016-10-21] MEDS: PANTOPRAZOLE 40 MG TABLET PO SCH (09:15)
[2016-10-21] MEDS: ASPIRIN 81 MG CHEW PO SCH (09:16)
[2016-10-21] MEDS: metroNIDAZOLE 500 MG TAB PO SCH (09:16)
[2016-10-21 10:40] LABS: Anion Gap 11 mmol/L; Blood Urea Nitrogen 9 mg/dL (9-20); Carbon Dioxide 22 mmol/L (22-30); Chloride 106 mmol/L (98-107); Glucose 109 mg/dL (74-99); Non-African American GFR(MDRD) >60 (>60 ml/min/1.73 sqM); Potassium 3.2 mmol/L (3.5-5.1); Sodium 139 mmol/L (137-145)
[2016-10-21] MEDS ORDERED: POTASSIUM CHLORIDE ER 20 MEQ TAB.ER PO STA (11:18)
--- NOTE | 2016-10-21 12:35 | P.GSCN ---
History of Present Illness Consult date: 10/21/16 Reason for Consult: Urine retention secondary to neurogenic bladder History of present illness: The patient is a pleasant 58-year-old gentleman with a history of multiple myeloma, bone marrow transplant and continued therapy for his disease. The patient had a distracted lesion at T12 required a kyphoplasty back in October 2015. He developed a hypotonic neurogenic bladder requiring intermittent catheterization which she continues to do. There is a question whether he needs an indwelling catheter. He has had an infection. He does the catheterization with a new catheter for 5 times per day. He has had an occasional difficulty passing the catheter. Review of Systems - Constitutional Reports fever - Genitourinary Reports as per HPI Past Medical History Past Medical History: Cancer, GERD/Reflux, Hyperlipidemia, Sleep Apnea/CPAP/ BIPAP, Thyroid Disorder Additional Past Medical History / Comment(s): back fracture t-12, multiple myloma, skin cancer with removals upper back and forehead, hypothyroidism, WIYOT bilaterally, ELVA with CPAP, unsteady gait with back pain. 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 Past Anesthesia/Blood Transfusion Reactions: No Reported Reaction Additional Past Anesthesia/Blood Transfusion Reaction / Comm: Pt received blood in past without reaction. 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 He is normally independent. he uses a cane He drives. His gait is unsteady with his back pain. 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 Is originally from [place] is moved back here in his [place]. His 2 adult children live in [place] they do visit. No one has been ill. He does relate that his had a mild gastroenteritis that she quickly resolved. He believes he started with a gastroenteritis resolved and it came back and has been persistent. The spouse does relate that with his chemotherapy he has certainly had intermittent bouts of diarrhea but this seems to be about the worst that he has had. It is noted he has urinary retention and does straight cath 4 times a day. No experience. No international travel. No tobacco use. No recreational drug use Smoking Status: Never smoker Past Alcohol Use History: Occasional Past Drug Use History: None Reported - Past Family History Mother Family Medical History: No Reported History Additional Family Medical History / Comment(s): Mother was healthy and lived to be 90 yrs old. Father Family Medical History: Cancer Additional Family Medical History / Comment(s): Father of pancreatic cancer at age 76 yrs. Brother(s) Family Medical History: Cancer Medications and Allergies Home Medications Medication Instructions Recorded Confirmed Type Acyclovir 400 mg PO BID 06/28/15 10/17/16 History Levothyroxine Sodium [Synthroid] 50 mcg PO DAILY 06/28/15 10/17/16 History Simvastatin [Zocor] 20 mg PO HS 06/28/15 10/17/16 History Tamsulosin HCl [Flomax] 0.4 mg PO HS 06/28/15 10/17/16 History Ubidecarenone [Co Q-10] 100 mg PO DAILY 06/28/15 10/17/16 History Calcium Carbonate/Vitamin D3 1 tab PO DAILY 02/07/16 10/17/16 History [Calcium 600-Vit D3 400 Tablet] Aspirin EC [Ecotrin Low Dose] 81 mg PO DAILY 10/17/16 10/17/16 History HYDROcodone/APAP 5-325MG [[place] 1 tab PO Q6HR PRN 10/17/16 10/17/16 History 5-325] Hydrocortisone Cream 10/17/16 History [Hydrocortisone 1% Cream] Omeprazole 20 mg PO DAILY 10/17/16 10/17/16 History Prochlorperazine [Compazine] 10 mg PO Q6H PRN 10/17/16 10/17/16 History Sulfamethox-Tmp 800-160Mg [Bactrim 1 tab PO Q12H 10/17/16 10/17/16 History DS 800-160 mg] Allergies Allergy/AdvReac Type Severity Reaction Status Date / Time No Known Allergies Allergy Verified 10/17/16 14:48 Surgical - Exam Vital Signs Temp Pulse Resp BP Pulse Ox 98.9 F 90 20 89/53 99 10/17/16 11:09 10/17/16 11:09 10/17/16 11:09 10/17/16 11:09 10/17/16 11:09 - General well developed, well nourished, no distress - Eyes PERRL - ENT no hearing loss - Respiratory normal expansion, normal respiratory effort - Musculoskeletal normal posture - Psychiatric oriented to time, oriented to person, oriented to place Results - Labs 10/17/16 12:10 10/21/16 09:50 Abnormal Lab Results - Last 24 Hours (Table) 10/21/16 Range/Units 09:50 Potassium 3.2 L (3.5-5.1) mmol/L Glucose 109 H (74-99) mg/dL Calcium 8.0 L (8.4-10.2) mg/dL Microbiology - Last 24 Hours (Table) 10/17/16 18:00 Stool Culture - Final Stool 10/19/16 10:34 Blood Culture - Preliminary Blood No Growth after 24 hours Diabetes panel 10/21/16 Range/Units 09:50 Sodium 139 (137-145) mmol/L Potassium 3.2 L (3.5-5.1) mmol/L Chloride 106 (98-107) mmol/L Carbon Dioxide 22 (22-30) mmol/L BUN 9 (9-20) mg/dL Creatinine 0.81 (0.66-1.25) mg/dL Glucose 109 H (74-99) mg/dL Calcium 8.0 L (8.4-10.2) mg/dL Calcium panel 10/21/16 Range/Units 09:50 Calcium 8.0 L (8.4-10.2) mg/dL Pituitary panel 10/21/16 Range/Units 09:50 Sodium 139 (137-145) mmol/L Potassium 3.2 L (3.5-5.1) mmol/L Chloride 106 (98-107) mmol/L Carbon Dioxide 22 (22-30) mmol/L BUN 9 (9-20) mg/dL Creatinine 0.81 (0.66-1.25) mg/dL Glucose 109 H (74-99) mg/dL Calcium 8.0 L (8.4-10.2) mg/dL Adrenal panel 10/21/16 Range/Units 09:50 Sodium 139 (137-145) mmol/L Potassium 3.2 L (3.5-5.1) mmol/L Chloride 106 (98-107) mmol/L Carbon Dioxide 22 (22-30) mmol/L BUN 9 (9-20) mg/dL Creatinine 0.81 (0.66-1.25) mg/dL Glucose 109 H (74-99) mg/dL Calcium 8.0 L (8.4-10.2) mg/dL Assessment and Plan Plan: Impression: Multiple myeloma, recurrent. 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 Chronic clean intermittent catheterization Recommendations: I answered multiple questions of the patient and his family about infection, catheterization and techniques, indwelling catheters. Long as he can catheterize relatively easily I think the intermittent technique is probably better than the neck indwelling catheter provided is healthy enough and not too weak. We will get periodic infections or periodic hematuria/ bacteriuria/pyuria. This is impossible to avoid. An indwelling catheter will do the same. Obviously cultures are imperative whenever there is a concern for an infection. It will be oncology's decision to whether asymptomatic bacteriuria/pyuria needs to be treated. That will probably be dependent on his state of immunity related to chemotherapy.
--- NOTE | 2016-10-22 09:58 | P.DS ---
Providers Date of admission: 10/17/16 14:22 Expected date of discharge: 10/21/16 Attending physician: Melani Dempsey Consults: 10/18/16 12:23 Consult Physician Routine Consulting Provider: Krishan Leon Consult Reason/Comments: diarrhea Do you want consulting provider notified?: Yes 10/21/16 08:54 Consult Physician Routine Consulting Provider: Griffin Gaston Consult Reason/Comments: unable to self catherize?permanent mims Do you want consulting provider notified?: Already Contacted Primary care physician: [facility] Course: This is a 66-year-old male. He is a patient of Dr. Sanchez and Dr. Moon with a past medical history for multiple myeloma, gastroesophageal reflux disease, hyperlipidemia, obstructive sleep apnea on CPAP, hypothyroidism, skin cancer from the back and forehead, T4 fracture status post surgery. Patient was diagnosed with multiple myeloma in [place] in 2009. He was treated with induction therapy with Velcade and Decadron followed by autologous stem cell transplant in 2010. He was then maintained on Revlimid for year and stopped his own request. Patient was placed back on Revlimid and Decadron 6 months in late 2010 early 2011 because of rising M protein with good response. He remained in remission until mid 2013 at that time he was placed on Velcade for maintenance and continued until April 2015 and due to progressive increase in M protein he was changed over to Kyprolis. June 2015 he developed progression with development of plasmacytoma biopsy-proven in the upper sternal area. He was then referred to, [facility] is continue treatment there. He received radiation chest wall twice as well as to the skull for the same. He has been on Kyprolis, Pomalyst and Elotuzumab and most recently on Daratumumab and Pomalyst. On this regime, protein electrophoresis studies did not show progression but he did have progressive masses in the chest wall due to plasmacytomas. Trivial stopped 10/04/2016. Patient subsequently developed watery diarrhea with recent sick family member. Diarrhea was exacerbated by eating. He came into [facility] emergency center on October 16. He was found to have urinary tract infection placed on antibiotic but he did not have any urinary symptoms he was discharged and then came back to the emergency center on October 17. He complains of rigors. No blood in the stools. He was admitted to the oncology unit and consults were requested with Dr. Brody from oncology and Dr. Nick from infectious disease. C. difficile toxin was negative. Stool culture negative. IgG level was 233 which is very low and patient was given IV immunoglobulin. Urine culture initially was negative but urinalysis was markedly abnormal. He was placed on ceftriaxone He was started on yogurt. He was discharged home on Levaquin and Flagyl. The day before his discharge, patient had difficulty self cathing and a consult was placed with Dr. Ayers Discharge diagnoses: 1. Diarrhea due to viral or bacterial gastroenteritis 2. Urinary tract infection due to catheter 3. 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 Multiple myeloma with progressive disease including plasmacytomas 5. Hyperlipidemia 6. Hypothyroidism 7. Benign prostatic hypertrophy with obstructive uropathy and self- catheterization 8. Chronic pain syndrome Discharge plan: Return home Impression and plan of care have been directed as dictated by the signing physician. Lakeisha Rodriguez nurse practitioner acting as scribe for signing physician. Patient Condition at Discharge: Good Plan - Discharge Summary New Discharge Prescriptions: Levofloxacin [Levaquin] 500 mg PO DAILY #5 tab metroNIDAZOLE [Flagyl] 500 mg PO TID #15 tab Discharge Medication List Acyclovir 400 mg PO BID 06/28/15 [History] Levothyroxine Sodium [Synthroid] 50 mcg PO DAILY 06/28/15 [History] Simvastatin [Zocor] 20 mg PO HS 06/28/15 [History] Tamsulosin HCl [Flomax] 0.4 mg PO HS 06/28/15 [History] Ubidecarenone [Co Q-10] 100 mg PO DAILY 06/28/15 [History] Calcium Carbonate/Vitamin D3 [Calcium 600-Vit D3 400 Tablet] 1 tab PO DAILY [History] Aspirin EC [Ecotrin Low Dose] 81 mg PO DAILY 10/17/16 [History] HYDROcodone/APAP 5-325MG [[place] 5-325] 1 tab PO Q6HR PRN 10/17/16 [History] Hydrocortisone Cream [Hydrocortisone 1% Cream] 10/17/16 [History] Omeprazole 20 mg PO DAILY 10/17/16 [History] Prochlorperazine [Compazine] 10 mg PO Q6H PRN 10/17/16 [History] Sulfamethox-Tmp 800-160Mg [Bactrim DS 800-160 mg] 1 tab PO Q12H 10/17/16 [ History] Levofloxacin [Levaquin] 500 mg PO DAILY #5 tab 10/21/16 [Rx] metroNIDAZOLE [Flagyl] 500 mg PO TID #15 tab 10/21/16 [Rx] Follow up Appointment(s)/Referral(s): Octavio Brody MD [STAFF PHYSICIAN] - 1 Week (please call for appointment, office closed for lunch at this time) Altaf Sanchez MD [Primary Care Provider] - 1 Week (please call office for appointment, office closed for lunch at this time) Patient Instructions/Handouts: Metronidazole (By mouth), Levofloxacin (By mouth ), Urinary Tract Infection in Men (DC), Multiple Myeloma (DC), How to Catheterize Yourself (Man) (GEN) Discharge Disposition: HOME SELF-CARE
[2016-10-26 05:11] LABS: Cryptosporidium parvum Not detected (Not detected); Isospora belli Not detected (Not detected); Microsporidium Not detected (Not detected); Routine Ova and Parasites Not detected
== END 2016-10-21 12:40 | disposition home or self-care (01) | DRG 699 ==
LOC: EC 11:04 → 5ONC 14:22
PROVIDERS: ADMIT Internal Medicine; ATTEND Internal Medicine
PROC: 30233S1 Transfusion of Nonautologous Globulin into Peripheral Vein, Percutaneous Approach (ICD-10-PCS; principal; 2016-10-20)
DX: T83.598A Infection and inflammatory reaction due to other prosthetic device, implant and graft in urinary system, initial encounter (principal); C90.00 Multiple myeloma not having achieved remission; C90.30 Solitary plasmacytoma not having achieved remission; D80.1 Nonfamilial hypogammaglobulinemia; Z94.84 Stem cells transplant status; A04.9 Bacterial intestinal infection, unspecified; N13.8 Other obstructive and reflux uropathy; N39.0 Urinary tract infection, site not specified; R19.7 Diarrhea, unspecified; N31.9 Neuromuscular dysfunction of bladder, unspecified; A08.4 Viral intestinal infection, unspecified; E78.5 Hyperlipidemia, unspecified; E03.9 Hypothyroidism, unspecified; N40.1 Benign prostatic hyperplasia with lower urinary tract symptoms; G89.4 Chronic pain syndrome; K21.9 Gastro-esophageal reflux disease without esophagitis; G47.33 Obstructive sleep apnea (adult) (pediatric); R26.81 Unsteadiness on feet; I10 Essential (primary) hypertension; Z79.82 Long term (current) use of aspirin; Z85.828 Personal history of other malignant neoplasm of skin; Z79.899 Other long term (current) drug therapy; Z92.3 Personal history of irradiation; Y84.6 Urinary catheterization as the cause of abnormal reaction of the patient, or of later complication, without mention of misadventure at the time of the procedure; Y92.009 Unspecified place in unspecified non-institutional (private) residence as the place of occurrence of the external cause
CPT/HCPCS: 36415; 71020; 80048; 80053; 80074; 80299; 81001; 82150; 82784; 83605; 83690; 84165; 85025; 87040; 87045; 87046; 87086; 87177; 87207; 87209; 87324; 87502; 96365; 96366; 96367; 99284; 99285

== ENCOUNTER 2016-10-22 17:23 | Emergency (ER) | payer MEDICARE ==
--- NOTE | 2016-10-22 17:55 | ED ---
Fever HPI <Jaspreet Velarde - Last Filed: 10/22/16 20:12> - General Source: patient, RN notes reviewed Mode of arrival: wheelchair Limitations: no limitations <Laurent Romo - Last Filed: 10/22/16 20:14> - General Chief Complaint: Fever Stated Complaint: fever/chills Time Seen by Provider: 10/22/16 17:37 - History of Present Illness Initial Comments: 66-year-old male presents emergency Department chief complaint of fever, rigors and vomiting. Patient states he was just discharged from the hospital yesterday in which they believe he had a UTI. Patient states her presented 5 days prior for fever. Patient states she currently is on treatment for multiple myeloma. Patient states he sees an oncologist [place] [facility]. Patient states that he is on under multiple chemotherapies and radiation. Patient states he just completed course and scheduled to switch to a new treatment. Patient states that he took Tylenol around 4:00. Patient states that he took 1000 mg. Patient states she is not taking any anti- inflammatories. Patient denies any chest pain, cough, chest congestion, sore throat, ear pain. Patient states that he did have one episode of vomiting during his shaking chills. Patient denies dysuria or hematuria. Patient denies any increase in stool. Patient states she's had some loose stool but they are improving. Patient states she is currently taking Levaquin, Flagyl. Patient did receive Rocephin and hospital stay. Patient states he had negative stool studies and negative influenza. (Laurent Romo) - Related Data Home Medications Medication Instructions Recorded Confirmed Acyclovir 400 mg PO BID 06/28/15 10/22/16 Levothyroxine Sodium [Synthroid] 50 mcg PO DAILY 06/28/15 10/22/16 Simvastatin [Zocor] 20 mg PO HS 06/28/15 10/22/16 Tamsulosin HCl [Flomax] 0.4 mg PO HS 06/28/15 10/22/16 Ubidecarenone [Co Q-10] 100 mg PO DAILY 06/28/15 10/22/16 Calcium Carbonate/Vitamin D3 1 tab PO DAILY 02/07/16 10/22/16 [Calcium 600-Vit D3 400 Tablet] Aspirin EC [Ecotrin Low Dose] 81 mg PO HS 10/17/16 10/22/16 HYDROcodone/APAP 5-325MG [[place] 1 tab PO Q6HR PRN 10/17/16 10/22/16 5-325] Hydrocortisone Cream 1 applic TOPICAL BID 10/17/16 10/22/16 [Hydrocortisone 1% Cream] Omeprazole 20 mg PO DAILY 10/17/16 10/22/16 Prochlorperazine [Compazine] 10 mg PO Q6H PRN 10/17/16 10/22/16 Previous Rx's Medication Instructions Recorded Levofloxacin [Levaquin] 500 mg PO DAILY #5 tab 10/21/16 metroNIDAZOLE [Flagyl] 500 mg PO TID #15 tab 10/21/16 Allergies Allergy/AdvReac Type Severity Reaction Status Date / Time No Known Allergies Allergy Verified 10/22/16 18:41 Review of Systems ROS Other: All systems not noted in ROS Statement are negative. <Jaspreet Velarde - Last Filed: 10/22/16 20:12> ROS Other: All systems not noted in ROS Statement are negative. <Laurent Romo - Last Filed: 10/22/16 20:14> ROS Statement: Those systems with pertinent positive or pertinent negative responses have been documented in the HPI. Past Medical History Past Medical History: Cancer, GERD/Reflux, Hyperlipidemia, Sleep Apnea/CPAP/ BIPAP, Thyroid Disorder Additional Past Medical History / Comment(s): back fracture t-12, multiple myloma, skin cancer with removals upper back and forehead, hypothyroidism, [place] bilaterally, ELVA with CPAP, unsteady gait with back pain. 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 Past Anesthesia/Blood Transfusion Reactions: No Reported Reaction Additional Past Anesthesia/Blood Transfusion Reaction / Comment(s): Pt received blood in past without reaction. 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 He is normally independent. he uses a cane He drives. His gait is unsteady with his back pain. 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 Is originally from [place] is moved back here in his [place]. His 2 adult children live in [place] they do visit. No one has been ill. He does relate that his had a mild gastroenteritis that she quickly resolved. He believes he started with a gastroenteritis resolved and it came back and has been persistent. The spouse does relate that with his chemotherapy he has certainly had intermittent bouts of diarrhea but this seems to be about the worst that he has had. It is noted he has urinary retention and does straight cath 4 times a day. No experience. No international travel. No tobacco use. No recreational drug use Smoking Status: Never smoker Past Alcohol Use History: Occasional Past Drug Use History: None Reported - Past Family History Mother Family Medical History: No Reported History Additional Family Medical History / Comment(s): Mother was healthy and lived to be 90 yrs old. Father Family Medical History: Cancer Additional Family Medical History / Comment(s): Father of pancreatic cancer at age 76 yrs. Brother(s) Family Medical History: Cancer <Laurent Romo - Last Filed: 10/22/16 20:14> General Exam Limitations: no limitations General appearance: alert, in no apparent distress Head exam: Present: atraumatic, normocephalic, normal inspection Eye exam: Present: normal appearance, PERRL, EOMI. Absent: scleral icterus, conjunctival injection, periorbital swelling ENT exam: Present: normal exam, normal oropharynx, mucous membranes moist, TM's normal bilaterally, normal external ear exam Neck exam: Present: normal inspection, full ROM. Absent: tenderness, meningismus, lymphadenopathy Respiratory exam: Present: normal lung sounds bilaterally. Absent: respiratory distress, wheezes, rales, rhonchi, stridor Cardiovascular Exam: Present: regular rate, normal rhythm, normal heart sounds. Absent: systolic murmur, diastolic murmur, rubs, gallop, clicks GI/Abdominal exam: Present: soft, normal bowel sounds. Absent: distended, tenderness, guarding, rebound, rigid Back exam: Absent: CVA tenderness (R), CVA tenderness (L) Neurological exam: Present: alert, oriented X3, CN II-XII intact Skin exam: Present: warm, dry, intact, normal color. Absent: rash <Laurent Romo - Last Filed: 10/22/16 20:14> Medical Decision Making - Lab Data Result diagrams: 10/22/16 17:55 10/22/16 17:55 <Jaspreet Velarde - Last Filed: 10/22/16 20:12> - Lab Data Result diagrams: 10/22/16 17:55 10/22/16 17:55 <Laurent Romo - Last Filed: 10/22/16 20:14> - Medical Decision Making Patient reevaluated by myself, Dr. Velarde. Patient is resting comfortably in bed at this time. Abdomen soft and nontender. Patient has had multiple episodes of right years fevers and chills and sweats since discharge. Case was discussed in detail with Dr. Dempsey who does recommend transfer to [facility]. Patient and family are agreeable with this. Case was discussed with Dr. Flor who is out of [facility]. Case was then discussed with Dr. don, who will accept transfer. (Jaspreet Velarde) - Lab Data Lab Results 10/22/16 10/22/16 10/22/16 Range/Units 17:55 17:55 17:55 WBC 4.5 (3.8-10.6) k/uL RBC 2.87 L (4.30-5.90) m/uL Hgb 9.1 L (13.0-17.5) gm/dL Hct 29.8 L (39.0-53.0) % MCV 103.9 H (80.0-100.0) fL MCH 31.5 (25.0-35.0) pg MCHC 30.3 L (31.0-37.0) g/dL RDW 15.6 H (11.5-15.5) % Plt Count 342 (150-450) k/uL Neutrophils % 84 % Lymphocytes % 5 % Monocytes % 8 % Eosinophils % 0 % Basophils % 0 % Neutrophils # 3.8 (1.3-7.7) k/uL Lymphocytes # 0.2 L (1.0-4.8) k/uL Monocytes # 0.4 (0-1.0) k/uL Eosinophils # 0.0 (0-0.7) k/uL Basophils # 0.0 (0-0.2) k/uL Hypochromasia Slight Poikilocytosis Slight Macrocytosis Moderate Sodium 139 (137-145) mmol/L Potassium 3.4 L (3.5-5.1) mmol/L Chloride 105 (98-107) mmol/L Carbon Dioxide 22 (22-30) mmol/L Anion Gap 12 mmol/L BUN 9 (9-20) mg/dL Creatinine 0.80 (0.66-1.25) mg/dL Est GFR (MDRD) Af Amer >60 (>60 ml/min/1.73 sqM) Est GFR (MDRD) Non-Af >60 (>60 ml/min/1.73 sqM) Glucose 104 H (74-99) mg/dL Plasma Lactic Acid Vinny (0.7-2.0) mmol/L Calcium 8.2 L (8.4-10.2) mg/dL Total Bilirubin 0.4 (0.2-1.3) mg/dL AST 41 (17-59) U/L ALT 64 (21-72) U/L Alkaline Phosphatase 113 (38-126) U/L Total Protein 4.9 L (6.3-8.2) g/dL Albumin 2.4 L (3.5-5.0) g/dL Urine Color Urine Appearance (Clear) Urine pH (5.0-8.0) Ur Specific [place] (1.001-1.035) Urine Protein (Negative) Urine Glucose (UA) (Negative) Urine Ketones (Negative) Urine Blood (Negative) Urine Nitrate (Negative) Urine Bilirubin (Negative) Urine Urobilinogen (<2.0) mg/dL Ur Leukocyte Esterase (Negative) Urine RBC (0-5) /hpf Urine WBC (0-5) /hpf Ur Squamous Epith Cells (0-4) /hpf Urine Bacteria (None) /hpf Hyaline Casts (0-2) /lpf Urine Mucus (None) /hpf Influenza Type A RNA Not Detected (Not Detectd) Influenza Type B (PCR) Not Detected (Not Detectd) 10/22/16 10/22/16 Range/Units 17:55 18:46 WBC (3.8-10.6) k/uL RBC (4.30-5.90) m/uL Hgb (13.0-17.5) gm/dL Hct (39.0-53.0) % MCV (80.0-100.0) fL MCH (25.0-35.0) pg MCHC (31.0-37.0) g/dL RDW (11.5-15.5) % Plt Count (150-450) k/uL Neutrophils % % Lymphocytes % % Monocytes % % Eosinophils % % Basophils % % Neutrophils # (1.3-7.7) k/uL Lymphocytes # (1.0-4.8) k/uL Monocytes # (0-1.0) k/uL Eosinophils # (0-0.7) k/uL Basophils # (0-0.2) k/uL Hypochromasia Poikilocytosis Macrocytosis Sodium (137-145) mmol/L Potassium (3.5-5.1) mmol/L Chloride (98-107) mmol/L Carbon Dioxide (22-30) mmol/L Anion Gap mmol/L BUN (9-20) mg/dL Creatinine (0.66-1.25) mg/dL Est GFR (MDRD) Af Amer (>60 ml/min/1.73 sqM) Est GFR (MDRD) Non-Af (>60 ml/min/1.73 sqM) Glucose (74-99) mg/dL Plasma Lactic Acid Vinny 1.0 (0.7-2.0) mmol/L Calcium (8.4-10.2) mg/dL Total Bilirubin (0.2-1.3) mg/dL AST (17-59) U/L ALT (21-72) U/L Alkaline Phosphatase (38-126) U/L Total Protein (6.3-8.2) g/dL Albumin (3.5-5.0) g/dL Urine Color Yellow Urine Appearance Clear (Clear) Urine pH 5.5 (5.0-8.0) Ur Specific [place] 1.020 (1.001-1.035) Urine Protein 1+ H (Negative) Urine Glucose (UA) Negative (Negative) Urine Ketones 1+ H (Negative) Urine Blood Small H (Negative) Urine Nitrate Negative (Negative) Urine Bilirubin Negative (Negative) Urine Urobilinogen <2.0 (<2.0) mg/dL Ur Leukocyte Esterase Trace H (Negative) Urine RBC 3 (0-5) /hpf Urine WBC 3 (0-5) /hpf Ur Squamous Epith Cells <1 (0-4) /hpf Urine Bacteria Rare H (None) /hpf Hyaline Casts 1 (0-2) /lpf Urine Mucus Few H (None) /hpf Influenza Type A RNA (Not Detectd) Influenza Type B (PCR) (Not Detectd) Disposition <Jaspreet Velarde - Last Filed: 10/22/16 20:12> Time of Disposition: 20:14 - Out of Hospital Transfer - Req. Specs Out of Hospital Transfer - Requested Specifics: Other Non-Acute ([facility]) <Laurent Romo - Last Filed: 10/22/16 20:14> Clinical Impression: Multiple myeloma, Fever, unknown origin, Rigors, Vomiting Disposition: OTHER INSTITUTION NOT DEFINED Referrals: Altaf Sanchez MD [Primary Care Provider] - 1-2 days
[2016-10-22 18:14] LABS: Basophils % (A) 0 %; CHCM 31.9; Eosinophils % (A) 0 %; HCT 29.8 % (39.0-53.0); HDW 3.52; HGB 9.1 gm/dL (13.0-17.5); Hypochromasia Slight; Luc # (Auto) 0.08; Luc % (Auto) 2; Lymphocytes # (A) 0.2 k/uL (1.0-4.8); Lymphocytes % (A) 5 %; MCH 31.5 pg (25.0-35.0); MCHC 30.3 g/dL (31.0-37.0); MCV 103.9 fL (80.0-100.0); Macrocytosis Moderate; Mean Platelet Volume 8.1; Monocytes # (A) 0.4 k/uL (0-1.0); Monocytes % (A) 8 %; Neutrophils # (A) 3.8 k/uL (1.3-7.7); Neutrophils % (A) 84 %; Poikilocytosis Slight; RBC 2.87 m/uL (4.30-5.90); RDW 15.6 % (11.5-15.5); WBC 4.5 k/uL (3.8-10.6); WBC (Perox) 4.45
[2016-10-22 18:23] LABS: ALT 64 U/L (21-72); AST 41 U/L (17-59); Alkaline Phosphatase 113 U/L (38-126); Anion Gap 12 mmol/L; Blood Urea Nitrogen 9 mg/dL (9-20); Calcium 8.2 mg/dL (8.4-10.2); Carbon Dioxide 22 mmol/L (22-30); Chloride 105 mmol/L (98-107); Glucose 104 mg/dL (74-99); Non-African American GFR(MDRD) >60 (>60 ml/min/1.73 sqM); Potassium 3.4 mmol/L (3.5-5.1); Sodium 139 mmol/L (137-145); Total Bilirubin 0.4 mg/dL (0.2-1.3); Total Protein 4.9 g/dL (6.3-8.2)
--- NOTE | 2016-10-22 18:24 | XR ---
EXAMINATION TYPE: XR chest 2V DATE OF EXAM: 10/22/2016 6:19 PM COMPARISON: 10/19/2016 HISTORY: Fever TECHNIQUE: Frontal and lateral views of the chest are obtained. FINDINGS: Heart size is normal. There is mild blunting of the costophrenic angles. There are no denis r masses. There is no gross heart failure. There are chest leads. IMPRESSION: Small bilateral pleural effusions. No gross heart failure. Pleural fluid is probably inc reased slightly compared to last exam. No pulmonary consolidation seen.
[2016-10-22 18:56] LABS: Appearance,Urine Clear (Clear); Bacteria,Urine Rare /hpf; Bilirubin,Urine Negative (Negative); Glucose,Urine (UA) Negative (Negative); Ketones,Urine 1+ (Negative); Leukocyte Esterase,Urine Trace (Negative); Mucus,Urine Few /hpf; Nitrite,Urine Negative (Negative); PH, Urine 5.5 (5.0-8.0); Particle Count 6691; Protein,Urine 1+ (Negative); RBC,Urine 3 /hpf (0-5); Squamous Epithelial Cell,Urine <1 /hpf (0-4); UA Billing (MACRO vs. MICRO) MICRO; Urobilinogen,Urine <2.0 mg/dL (<2.0); WBC,Urine 3 /hpf (0-5)
[2016-10-22 20:46] VITALS: RESP 16
[2016-10-22] MEDS ORDERED: SODIUM CHLORIDE 0.9% 1,000 ML IV STA (21:24)
[2016-10-22 21:50] VITALS: BP 121/66; PULSE 89; TEMP 98.8
[2016-10-22] MEDS ORDERED: ACETAMINOPHEN TAB 325 MG TAB PO STA (21:53)
== END 2016-10-22 22:06 | disposition other institution (70) ==
LOC: EC 17:23
DX: R50.9 Fever, unspecified (principal); C90.00 Multiple myeloma not having achieved remission; R11.10 Vomiting, unspecified; E03.9 Hypothyroidism, unspecified; E78.5 Hyperlipidemia, unspecified; K21.9 Gastro-esophageal reflux disease without esophagitis; R33.9 Retention of urine, unspecified; R61 Generalized hyperhidrosis; G47.33 Obstructive sleep apnea (adult) (pediatric); Z99.89 Dependence on other enabling machines and devices; Z79.82 Long term (current) use of aspirin; Z79.899 Other long term (current) drug therapy
CPT/HCPCS: 36415; 71020; 80053; 81001; 83605; 85025; 87040; 87086; 87502; 99285

== ENCOUNTER 2016-11-01 21:30 | Emergency (ER) | payer MEDICARE ==
[2016-11-01] MEDS ORDERED: IBUPROFEN IV 800 MG in SODIUM CHLORIDE 0.9% 250 ML IV ONE (21:53)
--- NOTE | 2016-11-01 21:57 | ED ---
General Adult HPI - General Chief complaint: Fever Stated complaint: FEVER Time Seen by Provider: 11/01/16 21:46 Source: patient, RN notes reviewed Mode of arrival: EMS Limitations: no limitations - History of Present Illness Initial comments: Patient is a pleasant 66-year-old male presenting to the emergency Department with fever. Patient has been battling with fevers for the past several weeks. Patient is diagnosed with multiple myeloma and is on chemotherapy. Patient has been evaluated in the hospital as well as transferred to,recently. Source of fever has not been able to be identified. Patient states today symptoms seemed a little bit worse. Patient has fatigue and chills and myalgias. Patient did take Tylenol around 8:00. Patient states chest rash has been present for months and unchanged. His doctor told him this was related to multiple myeloma. - Related Data Home Medications Medication Instructions Recorded Confirmed Acyclovir 400 mg PO BID 06/28/15 10/22/16 Levothyroxine Sodium [Synthroid] 50 mcg PO DAILY 06/28/15 10/22/16 Simvastatin [Zocor] 20 mg PO HS 06/28/15 10/22/16 Tamsulosin HCl [Flomax] 0.4 mg PO HS 06/28/15 10/22/16 Ubidecarenone [Co Q-10] 100 mg PO DAILY 06/28/15 10/22/16 Calcium Carbonate/Vitamin D3 1 tab PO DAILY 02/07/16 10/22/16 [Calcium 600-Vit D3 400 Tablet] Aspirin EC [Ecotrin Low Dose] 81 mg PO HS 10/17/16 10/22/16 HYDROcodone/APAP 5-325MG [[place] 1 tab PO Q6HR PRN 10/17/16 10/22/16 5-325] Hydrocortisone Cream 1 applic TOPICAL BID 10/17/16 10/22/16 [Hydrocortisone 1% Cream] Omeprazole 20 mg PO DAILY 10/17/16 10/22/16 Prochlorperazine [Compazine] 10 mg PO Q6H PRN 10/17/16 10/22/16 Previous Rx's Medication Instructions Recorded Levofloxacin [Levaquin] 500 mg PO DAILY #5 tab 10/21/16 metroNIDAZOLE [Flagyl] 500 mg PO TID #15 tab 10/21/16 Allergies Allergy/AdvReac Type Severity Reaction Status Date / Time No Known Allergies Allergy Verified 11/01/16 21:47 Review of Systems ROS Statement: Those systems with pertinent positive or pertinent negative responses have been documented in the HPI. ROS Other: All systems not noted in ROS Statement are negative. Constitutional: Reports: fever, chills Eyes: Denies: eye pain ENT: Denies: ear pain Respiratory: Denies: cough, dyspnea Cardiovascular: Denies: chest pain Endocrine: Reports: fatigue Gastrointestinal: Denies: abdominal pain Genitourinary: Denies: dysuria Musculoskeletal: Denies: back pain Skin: Reports: rash Neurological: Denies: headache Past Medical History Past Medical History: Cancer, GERD/Reflux, Hyperlipidemia, Sleep Apnea/CPAP/ BIPAP, Thyroid Disorder Additional Past Medical History / Comment(s): back fracture t-12, multiple myloma, skin cancer with removals upper back and forehead, hypothyroidism, [place] bilaterally, ELVA with CPAP, unsteady gait with back pain. 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 Past Anesthesia/Blood Transfusion Reactions: No Reported Reaction Additional Past Anesthesia/Blood Transfusion Reaction / Comment(s): Pt received blood in past without reaction. 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 He is normally independent. he uses a cane He drives. His gait is unsteady with his back pain. 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 Is originally from [place] is moved back here in his longterm. His 2 adult children live in [place] they do visit. No one has been ill. He does relate that his had a mild gastroenteritis that she quickly resolved. He believes he started with a gastroenteritis resolved and it came back and has been persistent. The spouse does relate that with his chemotherapy he has certainly had intermittent bouts of diarrhea but this seems to be about the worst that he has had. It is noted he has urinary retention and does straight cath 4 times a day. No experience. No international travel. No tobacco use. No recreational drug use Smoking Status: Never smoker Past Alcohol Use History: Occasional Past Drug Use History: None Reported - Past Family History Mother Family Medical History: No Reported History Additional Family Medical History / Comment(s): Mother was healthy and lived to be 90 yrs old. Father Family Medical History: Cancer Additional Family Medical History / Comment(s): Father of pancreatic cancer at age 76 yrs. Brother(s) Family Medical History: Cancer General Exam Limitations: no limitations General appearance: alert, in no apparent distress Head exam: Present: atraumatic Eye exam: Present: normal appearance, PERRL, EOMI ENT exam: Present: normal oropharynx Neck exam: Present: normal inspection. Absent: meningismus Respiratory exam: Present: normal lung sounds bilaterally Cardiovascular Exam: Present: regular rate, normal rhythm GI/Abdominal exam: Present: soft. Absent: tenderness Extremities exam: Present: normal inspection Back exam: Present: normal inspection Neurological exam: Present: alert Psychiatric exam: Present: normal affect, normal mood Skin exam: Present: erythema (Large Purplish raised rash anterior right chest, nontender.) Course Vital Signs 11/01/16 11/01/16 11/02/16 21:39 22:30 00:04 Temperature 101.7 F H 100.8 F H 99.1 F Pulse Rate 78 72 63 Respiratory 18 18 18 Rate Blood Pressure 101/55 100/55 91/52 O2 Sat by Pulse 99 93 L 95 Oximetry EKG Findings - EKG Comments: EKG Findings:: Normal sinus rhythm 78. SD 124. QRS 82. QT 400. QTc 456. Normal axis. Normal QRS. Normal ST-T. Medical Decision Making - Medical Decision Making Patient reevaluated and resting comfortably in bed. Case was discussed in detail with Dr. Brody as well as Dr. Goodwin. Dr. Brody is unclear if patient needed to be admitted or could be followed up however was agreeable to consult if he stayed. Dr. Goodwin had talked with the regarding possible transfer. Patient and family want to be discharged at this time. They state fever has been going on for several weeks without much change. They have been in touch with their oncologist and have an appointment tomorrow. They are encouraged to keep this appointment. - Lab Data Result diagrams: 11/01/16 22:01 11/01/16 22:01 Lab Results 11/01/16 11/01/1617 Range/Units 22:01 22:01 22:01 WBC 5.6 (3.8-10.6) k/uL RBC 2.47 L (4.30-5.90) m/uL Hgb 7.8 L (13.0-17.5) gm/dL Hct 25.3 L (39.0-53.0) % MCV 102.4 H (80.0-100.0) fL MCH 31.4 (25.0-35.0) pg MCHC 30.7 L (31.0-37.0) g/dL RDW 16.2 H (11.5-15.5) % Plt Count 162 D (150-450) k/uL Neutrophils % 88 % Lymphocytes % 4 % Monocytes % 7 % Eosinophils % 0 % Basophils % 0 % Neutrophils # 4.9 (1.3-7.7) k/uL Lymphocytes # 0.2 L (1.0-4.8) k/uL Monocytes # 0.4 (0-1.0) k/uL Eosinophils # 0.0 (0-0.7) k/uL Basophils # 0.0 (0-0.2) k/uL Hypochromasia Slight Anisocytosis Slight Macrocytosis Slight Sodium 137 (137-145) mmol/L Potassium 3.5 (3.5-5.1) mmol/L Chloride 102 (98-107) mmol/L Carbon Dioxide 26 (22-30) mmol/L Anion Gap 9 mmol/L BUN 12 (9-20) mg/dL Creatinine 0.90 (0.66-1.25) mg/dL Est GFR (MDRD) Af Amer >60 (>60 ml/min/1.73 sqM) Est GFR (MDRD) Non-Af >60 (>60 ml/min/1.73 sqM) Glucose 121 H (74-99) mg/dL Plasma Lactic Acid Vinny 0.7 (0.7-2.0) mmol/L Calcium 8.0 L (8.4-10.2) mg/dL Total Bilirubin 0.4 (0.2-1.3) mg/dL AST 130 H (17-59) U/L ALT 83 H (21-72) U/L Alkaline Phosphatase 148 H (38-126) U/L Total Protein 4.6 L (6.3-8.2) g/dL Albumin 2.5 L (3.5-5.0) g/dL Urine Color Urine Appearance (Clear) Urine pH (5.0-8.0) Ur Specific [place] (1.001-1.035) Urine Protein (Negative) Urine Glucose (UA) (Negative) Urine Ketones (Negative) Urine Blood (Negative) Urine Nitrate (Negative) Urine Bilirubin (Negative) Urine Urobilinogen (<2.0) mg/dL Ur Leukocyte Esterase (Negative) Urine RBC (0-5) /hpf Urine WBC (0-5) /hpf Ur Squamous Epith Cells (0-4) /hpf Urine Bacteria (None) /hpf Urine Mucus (None) /hpf 11/01/16 Range/Units 23:20 WBC (3.8-10.6) k/uL RBC (4.30-5.90) m/uL Hgb (13.0-17.5) gm/dL Hct (39.0-53.0) % MCV (80.0-100.0) fL MCH (25.0-35.0) pg MCHC (31.0-37.0) g/dL RDW (11.5-15.5) % Plt Count (150-450) k/uL Neutrophils % % Lymphocytes % % Monocytes % % Eosinophils % % Basophils % % Neutrophils # (1.3-7.7) k/uL Lymphocytes # (1.0-4.8) k/uL Monocytes # (0-1.0) k/uL Eosinophils # (0-0.7) k/uL Basophils # (0-0.2) k/uL Hypochromasia Anisocytosis Macrocytosis Sodium (137-145) mmol/L Potassium (3.5-5.1) mmol/L Chloride (98-107) mmol/L Carbon Dioxide (22-30) mmol/L Anion Gap mmol/L BUN (9-20) mg/dL Creatinine (0.66-1.25) mg/dL Est GFR (MDRD) Af Amer (>60 ml/min/1.73 sqM) Est GFR (MDRD) Non-Af (>60 ml/min/1.73 sqM) Glucose (74-99) mg/dL Plasma Lactic Acid Vinny (0.7-2.0) mmol/L Calcium (8.4-10.2) mg/dL Total Bilirubin (0.2-1.3) mg/dL AST (17-59) U/L ALT (21-72) U/L Alkaline Phosphatase (38-126) U/L Total Protein (6.3-8.2) g/dL Albumin (3.5-5.0) g/dL Urine Color Yellow Urine Appearance Cloudy (Clear) Urine pH 5.5 (5.0-8.0) Ur Specific [place] 1.023 (1.001-1.035) Urine Protein 1+ H (Negative) Urine Glucose (UA) Negative (Negative) Urine Ketones Trace H (Negative) Urine Blood Trace H (Negative) Urine Nitrate Negative (Negative) Urine Bilirubin Negative (Negative) Urine Urobilinogen 2.0 (<2.0) mg/dL Ur Leukocyte Esterase Negative (Negative) Urine RBC 2 (0-5) /hpf Urine WBC 3 (0-5) /hpf Ur Squamous Epith Cells <1 (0-4) /hpf Urine Bacteria Rare H (None) /hpf Urine Mucus Moderate H (None) /hpf - Radiology Data Radiology results: image reviewed (Chest x-ray shows no acute process) Disposition Clinical Impression: Fever Disposition: HOME SELF-CARE Condition: Stable Instructions: Fever in Adults (ED) Additional Instructions: Please follow-up tomorrow with your oncologist as planned. Please also follow- up with your primary care physician. Have them review test on results from today including culture results that are still pending. Return for increased fevers, difficulty breathing, abdominal pain, worsening or change in symptoms or other concerns. Continue Tylenol or Motrin as needed. Referrals: Altaf Sanchez MD [Primary Care Provider] - 1-2 days
[2016-11-01 22:22] LABS: Anisocytosis Slight; Basophils % (A) 0 %; CH 32.3; CHCM 31.6; Eosinophils % (A) 0 %; HCT 25.3 % (39.0-53.0); HDW 3.36; HGB 7.8 gm/dL (13.0-17.5); Hypochromasia Slight; Luc # (Auto) 0.09; Luc % (Auto) 2; Lymphocytes # (A) 0.2 k/uL (1.0-4.8); Lymphocytes % (A) 4 %; MCH 31.4 pg (25.0-35.0); MCHC 30.7 g/dL (31.0-37.0); MCV 102.4 fL (80.0-100.0); Macrocytosis Slight; Monocytes # (A) 0.4 k/uL (0-1.0); Monocytes % (A) 7 %; Neutrophils # (A) 4.9 k/uL (1.3-7.7); Neutrophils % (A) 88 %; RBC 2.47 m/uL (4.30-5.90); RDW 16.2 % (11.5-15.5); WBC 5.6 k/uL (3.8-10.6); WBC (Perox) 5.64
[2016-11-01] MEDS: SODIUM CHLORIDE 0.9% 500 ML IV SCH ×2 (22:22→23:04)
[2016-11-01 22:46] LABS: ALT 83 U/L (21-72); AST 130 U/L (17-59); Alkaline Phosphatase 148 U/L (38-126); Anion Gap 9 mmol/L; Blood Urea Nitrogen 12 mg/dL (9-20); Carbon Dioxide 26 mmol/L (22-30); Chloride 102 mmol/L (98-107); Glucose 121 mg/dL (74-99); Non-African American GFR(MDRD) >60 (>60 ml/min/1.73 sqM); Potassium 3.5 mmol/L (3.5-5.1); Sodium 137 mmol/L (137-145); Total Bilirubin 0.4 mg/dL (0.2-1.3); Total Protein 4.6 g/dL (6.3-8.2)
--- NOTE | 2016-11-01 23:16 | XR ---
EXAMINATION TYPE: XR chest 2V DATE OF EXAM: 11/01/2016 10:50 PM COMPARISON: 10/22/2016 HISTORY: Fever, multiple myeloma TECHNIQUE: Frontal and lateral views of the chest are obtained. FINDINGS: There is no heart failure. There is minimal density at the lateral left lung base. There a re no hilar masses. Heart size is normal. There are chest leads. There is slight blunting of the post erior costophrenic angles on the lateral view. IMPRESSION: Small bilateral pleural effusions without change compared to last exam. No heart failure . No pulmonary consolidation.
[2016-11-01 23:38] LABS: Appearance,Urine Cloudy (Clear); Bacteria,Urine Rare /hpf; Bilirubin,Urine Negative (Negative); Glucose,Urine (UA) Negative (Negative); Ketones,Urine Trace (Negative); Leukocyte Esterase,Urine Negative (Negative); Mucus,Urine Moderate /hpf; Nitrite,Urine Negative (Negative); PH, Urine 5.5 (5.0-8.0); Particle Count 16652; Protein,Urine 1+ (Negative); RBC,Urine 2 /hpf (0-5); Specific Gravity,Urine 1.023 (1.001-1.035); Squamous Epithelial Cell,Urine <1 /hpf (0-4); UA Billing (MACRO vs. MICRO) MICRO; WBC,Urine 3 /hpf (0-5)
[2016-11-02] MEDS ORDERED: ACETAMINOPHEN TAB 500 MG TAB PO STA (01:01)
[2016-11-02 01:27] VITALS: BP 139/79; PULSE 99; RESP 20; TEMP 99
== END 2016-11-02 01:26 | disposition home or self-care (01) ==
LOC: EC 21:30
DX: R50.9 Fever, unspecified (principal); R21 Rash and other nonspecific skin eruption; C90.00 Multiple myeloma not having achieved remission; E03.9 Hypothyroidism, unspecified; K21.9 Gastro-esophageal reflux disease without esophagitis; E78.5 Hyperlipidemia, unspecified; Z79.899 Other long term (current) drug therapy; Z85.828 Personal history of other malignant neoplasm of skin
CPT/HCPCS: 36415; 93005; 80053; 83605; 85025; 81001; 87040; 87086; 71020; 99284; 96365; 96361; J1741

== ENCOUNTER 2017-01-27 21:20 | Inpatient (IN) | payer MEDICARE ==
--- NOTE | 2017-01-27 21:45 | ED ---
General Adult HPI - General Chief complaint: Shortness of Breath Stated complaint: SOB Time Seen by Provider: 01/27/17 21:28 Source: patient, family, RN notes reviewed, old records reviewed Mode of arrival: ambulatory Limitations: no limitations - History of Present Illness Initial comments: This is a 58-year-old male here for evaluation. The patient comes in for evaluation of shortness of breath and chest pain. No fevers cough or congestion , patient recently going to treatment for multiple myeloma, I should just follow -up with Dr. Lani Dr. S/P pj. Patient denies any modifying factors pain , increased shortness of breath exertion. No recent travel history or sick contacts. No recent hospitalizations - Related Data Home Medications Medication Instructions Recorded Confirmed Acyclovir 400 mg PO BID 06/28/15 01/27/17 Levothyroxine Sodium [Synthroid] 50 mcg PO DAILY 06/28/15 01/27/17 Simvastatin [Zocor] 20 mg PO HS 06/28/15 01/27/17 Tamsulosin HCl [Flomax] 0.4 mg PO HS 06/28/15 01/27/17 Ubidecarenone [Co Q-10] 100 mg PO DAILY 06/28/15 01/27/17 Calcium Carbonate/Vitamin D3 1 tab PO DAILY 02/07/16 01/27/17 [Calcium 600-Vit D3 400 Tablet] Aspirin EC [Ecotrin Low Dose] 81 mg PO HS 10/17/16 01/27/17 HYDROcodone/APAP 5-325MG [[place] 1 tab PO Q6HR PRN 10/17/16 01/27/17 5-325] Omeprazole 20 mg PO DAILY 10/17/16 01/27/17 Prochlorperazine [Compazine] 10 mg PO Q6H PRN 10/17/16 01/27/17 LORazepam [Ativan] 1 mg PO DAILY PRN 01/27/17 01/27/17 Multivitamins, Thera [Multivitamin 1 tab PO DAILY 01/27/17 01/27/17 (formulary)] Sulfamethox-Tmp 800-160Mg [Bactrim 1 tab PO Q12HR 01/27/17 01/27/17 DS 800-160 mg] Allergies Allergy/AdvReac Type Severity Reaction Status Date / Time No Known Allergies Allergy Verified 01/27/17 21:59 Review of Systems ROS Statement: Those systems with pertinent positive or pertinent negative responses have been documented in the HPI. ROS Other: All systems not noted in ROS Statement are negative. Past Medical History Past Medical History: Cancer, GERD/Reflux, Hyperlipidemia, Sleep Apnea/CPAP/ BIPAP, Thyroid Disorder Additional Past Medical History / Comment(s): back fracture t-12, multiple myloma, skin cancer with removals upper back and forehead, hypothyroidism, [place] bilaterally, ELVA with CPAP, unsteady gait with back pain. 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 Past Anesthesia/Blood Transfusion Reactions: No Reported Reaction Additional Past Anesthesia/Blood Transfusion Reaction / Comment(s): Pt received blood in past without reaction. 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 He is normally independent. he uses a cane He drives. His gait is unsteady with his back pain. 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 Is originally from [place] is moved back here in his long term. His 2 adult children live in [place] they do visit. No one has been ill. He does relate that his had a mild gastroenteritis that she quickly resolved. He believes he started with a gastroenteritis resolved and it came back and has been persistent. The spouse does relate that with his chemotherapy he has certainly had intermittent bouts of diarrhea but this seems to be about the worst that he has had. It is noted he has urinary retention and does straight cath 4 times a day. No experience. No international travel. No tobacco use. No recreational drug use Smoking Status: Never smoker Past Alcohol Use History: Occasional Past Drug Use History: None Reported - Past Family History Mother Family Medical History: No Reported History Additional Family Medical History / Comment(s): Mother was healthy and lived to be 90 yrs old. Father Family Medical History: Cancer Additional Family Medical History / Comment(s): Father of pancreatic cancer at age 76 yrs. Brother(s) Family Medical History: Cancer General Exam Limitations: no limitations General appearance: alert, anxious, in distress Head exam: Present: atraumatic, normocephalic, normal inspection Eye exam: Present: normal appearance, PERRL, EOMI. Absent: scleral icterus, conjunctival injection, periorbital swelling ENT exam: Present: normal exam, mucous membranes moist Neck exam: Present: normal inspection. Absent: tenderness, meningismus, lymphadenopathy Respiratory exam: Present: normal lung sounds bilaterally, respiratory distress , accessory muscle use, decreased breath sounds, prolonged expiratory. Absent: wheezes, rales, rhonchi, stridor Cardiovascular Exam: Present: normal rhythm, tachycardia, normal heart sounds. Absent: systolic murmur, diastolic murmur, rubs, gallop, clicks GI/Abdominal exam: Present: soft, normal bowel sounds. Absent: distended, tenderness, guarding, rebound, rigid Extremities exam: Present: normal inspection, full ROM, normal capillary refill. Absent: tenderness, pedal edema, joint swelling, calf tenderness Back exam: Present: normal inspection Neurological exam: Present: alert, oriented X3, CN II-XII intact Psychiatric exam: Present: normal affect, normal mood Skin exam: Present: warm, dry, intact, normal color. Absent: rash Course Vital Signs 01/27/17 01/27/17 21:23 23:29 Temperature 98.5 F 99.1 F Pulse Rate 129 H 128 H Respiratory 18 18 Rate Blood Pressure 105/67 124/65 O2 Sat by Pulse 94 L 95 Oximetry - Reevaluation(s) Reevaluation #1: 01/28/17 00:18 Patient saw remain significantly short of breath EKG Findings - EKG Comments: EKG Findings:: EKG shows sinus tachycardia rate 124, by mouth 40, QRS 80, QTC 428 Medical Decision Making - Medical Decision Making 66 male to the ER for evaluation of severe shortness of breath, right-sided chest pain. Patient with right-sided pleural effusion, malignant pleural effusion likely, patient will be admitted for pulmonary evaluation - Lab Data Result diagrams: 01/27/17 21:50 01/27/17 21:50 Lab Results 01/27/17 01/27/17 01/27/17 Range/Units 21:50 21:50 21:50 WBC 6.0 (3.8-10.6) k/uL RBC 3.28 L (4.30-5.90) m/uL Hgb 10.7 L (13.0-17.5) gm/dL Hct 34.4 L (39.0-53.0) % MCV 104.9 H (80.0-100.0) fL MCH 32.7 (25.0-35.0) pg MCHC 31.2 (31.0-37.0) g/dL RDW 15.8 H (11.5-15.5) % Plt Count 188 (150-450) k/uL Neutrophils % 82 % Lymphocytes % 4 % Monocytes % 9 % Eosinophils % 2 % Basophils % 0 % Neutrophils # 4.9 (1.3-7.7) k/uL Lymphocytes # 0.3 L (1.0-4.8) k/uL Monocytes # 0.6 (0-1.0) k/uL Eosinophils # 0.1 (0-0.7) k/uL Basophils # 0.0 (0-0.2) k/uL Hypochromasia Slight Macrocytosis Moderate PT (9.0-12.0) sec INR (<1.1) APTT (22.0-30.0) sec D-Dimer (<0.60) mg/L FEU Sodium 130 L (137-145) mmol/L Potassium 4.7 (3.5-5.1) mmol/L Chloride 100 (98-107) mmol/L Carbon Dioxide 21 L (22-30) mmol/L Anion Gap 9 mmol/L BUN 15 (9-20) mg/dL Creatinine 1.28 H (0.66-1.25) mg/dL Est GFR (MDRD) Af Amer >60 (>60 ml/min/1.73 sqM) Est GFR (MDRD) Non-Af 56 (>60 ml/min/1.73 sqM) Glucose 107 H (74-99) mg/dL Calcium 9.0 (8.4-10.2) mg/dL Phosphorus 4.4 (2.5-4.5) mg/dL Magnesium 1.8 (1.6-2.3) mg/dL Total Bilirubin 0.5 (0.2-1.3) mg/dL AST 39 (17-59) U/L ALT 37 (21-72) U/L Alkaline Phosphatase 106 (38-126) U/L Total Creatine Kinase 45 L (55-170) U/L CK-MB (CK-2) 1.5 (0.0-2.4) ng/mL CK-MB (CK-2) Rel Index 3.3 Troponin I <0.012 (0.000-0.034) ng/mL NT-Pro-B Natriuret Pep pg/mL Total Protein 5.8 L (6.3-8.2) g/dL Albumin 3.2 L (3.5-5.0) g/dL TSH 12.000 H (0.465-4.680) mIU/L 01/27/17 01/27/17 Range/Units 21:50 21:50 WBC (3.8-10.6) k/uL RBC (4.30-5.90) m/uL Hgb (13.0-17.5) gm/dL Hct (39.0-53.0) % MCV (80.0-100.0) fL MCH (25.0-35.0) pg MCHC (31.0-37.0) g/dL RDW (11.5-15.5) % Plt Count (150-450) k/uL Neutrophils % % Lymphocytes % % Monocytes % % Eosinophils % % Basophils % % Neutrophils # (1.3-7.7) k/uL Lymphocytes # (1.0-4.8) k/uL Monocytes # (0-1.0) k/uL Eosinophils # (0-0.7) k/uL Basophils # (0-0.2) k/uL Hypochromasia Macrocytosis PT 10.4 (9.0-12.0) sec INR 1.0 (<1.1) APTT 18.3 L (22.0-30.0) sec D-Dimer 2.23 H (<0.60) mg/L FEU Sodium (137-145) mmol/L Potassium (3.5-5.1) mmol/L Chloride (98-107) mmol/L Carbon Dioxide (22-30) mmol/L Anion Gap mmol/L BUN (9-20) mg/dL Creatinine (0.66-1.25) mg/dL Est GFR (MDRD) Af Amer (>60 ml/min/1.73 sqM) Est GFR (MDRD) Non-Af (>60 ml/min/1.73 sqM) Glucose (74-99) mg/dL Calcium (8.4-10.2) mg/dL Phosphorus (2.5-4.5) mg/dL Magnesium (1.6-2.3) mg/dL Total Bilirubin (0.2-1.3) mg/dL AST (17-59) U/L ALT (21-72) U/L Alkaline Phosphatase (38-126) U/L Total Creatine Kinase (55-170) U/L CK-MB (CK-2) (0.0-2.4) ng/mL CK-MB (CK-2) Rel Index Troponin I (0.000-0.034) ng/mL NT-Pro-B Natriuret Pep 441 pg/mL Total Protein (6.3-8.2) g/dL Albumin (3.5-5.0) g/dL TSH (0.465-4.680) mIU/L - Radiology Data Radiology results: report reviewed (CTA chest is positive for right-sided pleural effusion negative for PE), image reviewed Disposition Clinical Impression: Generalized weakness, Multiple myeloma, Recurrent right pleural effusion, Hypoxia Disposition: ADMITTED IP TO THIS HOSP Condition: Fair Referrals: Altaf Sanchez MD [Primary Care Provider] - 1-2 days
[2017-01-27] MEDS ORDERED: RX INFO: IV CONTRAST WAS GIVEN 1 EACH MISC MISCELLANE PRN (21:52)
[2017-01-27 22:09] LABS: Basophils % (A) 0 %; CH 33.4; CHCM 31.9; Eosinophils # (A) 0.1 k/uL (0-0.7); Eosinophils % (A) 2 %; HCT 34.4 % (39.0-53.0); HDW 2.85; HGB 10.7 gm/dL (13.0-17.5); Hypochromasia Slight; Luc # (Auto) 0.16; Luc % (Auto) 3; Lymphocytes # (A) 0.3 k/uL (1.0-4.8); Lymphocytes % (A) 4 %; MCH 32.7 pg (25.0-35.0); MCHC 31.2 g/dL (31.0-37.0); MCV 104.9 fL (80.0-100.0); Macrocytosis Moderate; Mean Platelet Volume 7.2; Monocytes # (A) 0.6 k/uL (0-1.0); Monocytes % (A) 9 %; Neutrophils # (A) 4.9 k/uL (1.3-7.7); Neutrophils % (A) 82 %; RBC 3.28 m/uL (4.30-5.90); RDW 15.8 % (11.5-15.5); WBC (Perox) 6.34
[2017-01-27 22:21] LABS: ALT 37 U/L (21-72); AST 39 U/L (17-59); Alkaline Phosphatase 106 U/L (38-126); Anion Gap 9 mmol/L; Blood Urea Nitrogen 15 mg/dL (9-20); Carbon Dioxide 21 mmol/L (22-30); Chloride 100 mmol/L (98-107); Glucose 107 mg/dL (74-99); Magnesium 1.8 mg/dL (1.6-2.3); Non-African American GFR(MDRD) 56 (>60 ml/min/1.73 sqM); Phosphorous 4.4 mg/dL (2.5-4.5); Potassium 4.7 mmol/L (3.5-5.1); Sodium 130 mmol/L (137-145); Total Bilirubin 0.5 mg/dL (0.2-1.3); Total Protein 5.8 g/dL (6.3-8.2)
[2017-01-27 22:25] LABS: Prothrombin Time 10.4 sec (9.0-12.0)
[2017-01-27 22:26] LABS: Creatine Kinase 45 U/L (55-170)
[2017-01-27 22:38] LABS: Creatine Kinase MB 1.5 ng/mL (0.0-2.4); Troponin I <0.012 ng/mL (0.000-0.034)
[2017-01-27 22:48] LABS: Partial Thromboplastin Time 18.3 sec (22.0-30.0)
--- NOTE | 2017-01-27 23:31 | CT ---
EXAM: CT Angiography Chest With Intravenous Contrast. CLINICAL HISTORY: Reason: Pain TECHNIQUE: Axial computed tomographic angiography images of the chest with intravenous contrast using pulmonary embolism protocol. CTDI is 65.3 mGy and DLP is 392.80 mGy-cm This CT exam was performed using one or more of the following dose reduction techniques: automated exposure control, adjustment of the mA and/or kV according to patient size, and/or use of iterative reconstruction technique. MIP reconstructed images were created and reviewed. COMPARISON: CT chest/abdomen/pelvis on 12/09/2015 FINDINGS: Lung parenchyma/pleura: New large right-sided pleural effusion with extensive atelectasis of the right lung. Small amount of dependent density in the posterior aspect of the right hemithorax may represent pleural thickening versus small amount of blood products. Mediastinum/denis: Leftward shift of the mediastinal structures secondary to mass effect from the large right pleural effusion. Heart: Increased small pericardial effusion. No cardiomegaly. Vasculature: No central or large pulmonary embolus. Evaluation of the distalmost pulmonary arterial branches is limited by breathing motion artifact. Aorta: Atherosclerotic changes. No aneurysm or dissection. Airways: Patent. Bones: Sclerotic lesion again noted in the right first rib. Lucent lesions again seen in the T2 and T8 vertebral bodies most prominently, compatible with known multiple myeloma. Kyphoplasty changes again noted in the T12 vertebral body. Compression fractures again noted in the L1 and L2 vertebral bodies with increased height loss since prior exam on 12/09/2015. Stable superior endplate depression in the T5 vertebral body. Degenerative changes of the spine. Muscles: No mass. Subcutaneous tissues: New prominent nodular skin thickening affecting the left visualized lower neck and left anterior upper chest soft tissues as well as the right anterior chest soft tissues. Similar mildly prominent right axillary and right supraclavicular lymph nodes. Nonspecific soft tissue prominence anterior to the trachea above the thoracic inlet. Upper abdomen: Again seen is a 3.4 cm hypoattenuating lesion in the posterior right hepatic lobe with suggestion of mild nodular enhancement along the periphery, although incompletely evaluated on this exam. Left renal cyst. New nonspecific abnormal soft tissue nodularity posterior to the right hepatic lobe and right kidney. IMPRESSION: 1. No central or large pulmonary embolus identified. 2. New large right-sided pleural effusion with extensive atelectasis of the right lung. Small amount of dependent density posteriorly in the right hemithorax may represent pleural thickening versus small amount of blood products. 3. New prominent nodular skin thickening affecting the left visualized lower neck and left anterior upper chest soft tissues as well as the right anterior chest soft tissues. 4. Compression fractures again noted in the L1 and L2 vertebral bodies with increased height loss since prior exam on 12/09/2015. Multifocal lytic lesions again noted throughout the vertebral bodies which may represent multiple myeloma. 5. Increased small pericardial effusion. 6. Nonspecific hypoattenuating lesion in the posterior right hepatic lobe and new nonspecific abnormal soft tissue nodularity posterior to the right hepatic lobe and right kidney.
[2017-01-28] MEDS ORDERED: IPRATROPIUM-ALBUTEROL 3 ML NEB INHALATION PRN (00:15)
[2017-01-28] MEDS ORDERED: MORPHINE SULFATE 4 MG/ML SYRINGE IVP STA (00:16)
[2017-01-28] MEDS: SODIUM CHLORIDE 0.9% 1,000 ML IV SCH ×2 (00:44→16:51)
[2017-01-28 01:21] VITALS: BMI 25.8
[2017-01-28 01:27] LABS: Appearance,Urine Clear (Clear); Bilirubin,Urine Negative (Negative); Glucose,Urine (UA) Negative (Negative); Ketones,Urine Trace (Negative); Leukocyte Esterase,Urine Negative (Negative); Nitrite,Urine Negative (Negative); PH, Urine 5.5 (5.0-8.0); Protein,Urine Negative (Negative); Specific Gravity,Urine 1.025 (1.001-1.035); UA Billing (MACRO vs. MICRO) CHEM; Urobilinogen,Urine <2.0 mg/dL (<2.0)
[2017-01-28] MEDS ORDERED: ENOXAPARIN 40 MG/0.4 ML SYRINGE SQ SCH (09:00)
[2017-01-28] MEDS: MORPHINE SULFATE 4 MG/ML SYRINGE IVP PRN ×2 (10:13→16:46)
[2017-01-28] MEDS ORDERED: LORazepam 1 MG TAB PO PRN (13:21)
[2017-01-28] MEDS ORDERED: SULFAMETHOX-TMP 800-160MG 1 EACH TAB PO SCH ×2 (13:24→21:00)
[2017-01-28] MEDS: SULFAMETHOX-TMP 800-160MG 1 EACH TAB PO SCH ×2 (14:55→21:48)
[2017-01-28] MEDS: ACYCLOVIR 200 MG CAP PO SCH (14:56)
--- NOTE | 2017-01-28 15:12 | P.CNPUL ---
History of Present Illness Consult date: 01/28/17 Reason for consult: cough, chest pain, pleural effusion Chief complaint: shortness of breath and chest pain History of present illness: this is a 66-year-old gentleman who presented to the emergency department complaining of shortness of breath and chest pain. The patient states he has also had associated cough. The patient has a history of multiple myeloma and is currently undergoing treatment. The patient does not have any underlying lung disease that he is aware of. He has never seen a ironer or presser in the past. Her oxygen at home at baseline.he does have a history of sleep apnea. He is a lifelong never smoker. Review of Systems All systems: negative Past Medical History Past Medical History: Cancer, GERD/Reflux, Hyperlipidemia, Sleep Apnea/CPAP/ BIPAP, Thyroid Disorder Additional Past Medical History / Comment(s): back fracture t-12, multiple myloma, skin cancer with removals upper back and forehead, hypothyroidism, [place] bilaterally, ELVA with CPAP, unsteady gait with back pain. 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 Past Anesthesia/Blood Transfusion Reactions: No Reported Reaction Additional Past Anesthesia/Blood Transfusion Reaction / Comment(s): Pt received blood in past without reaction. 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 He is normally independent. he uses a cane He drives. His gait is unsteady with his back pain. 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 Is originally from [place] is moved back here in his [place]. His 2 adult children live in [place] they do visit. No one has been ill. He does relate that his had a mild gastroenteritis that she quickly resolved. He believes he started with a gastroenteritis resolved and it came back and has been persistent. The spouse does relate that with his chemotherapy he has certainly had intermittent bouts of diarrhea but this seems to be about the worst that he has had. It is noted he has urinary retention and does straight cath 4 times a day. No experience. No international travel. No tobacco use. No recreational drug use Smoking Status: Never smoker Past Alcohol Use History: Occasional Past Drug Use History: None Reported - Past Family History Mother Family Medical History: No Reported History Additional Family Medical History / Comment(s): Mother was healthy and lived to be 90 yrs old. Father Family Medical History: Cancer Additional Family Medical History / Comment(s): Father of pancreatic cancer at age 76 yrs. Brother(s) Family Medical History: Cancer Additional Family Medical History / Comment(s): stomach CA Medications and Allergies Home Medications Medication Instructions Recorded Confirmed Type Acyclovir 400 mg PO BID 06/28/15 01/27/17 History Levothyroxine Sodium [Synthroid] 50 mcg PO DAILY 06/28/15 01/27/17 History Simvastatin [Zocor] 20 mg PO HS 06/28/15 01/27/17 History Tamsulosin HCl [Flomax] 0.4 mg PO HS 06/28/15 01/27/17 History Ubidecarenone [Co Q-10] 100 mg PO DAILY 06/28/15 01/27/17 History Calcium Carbonate/Vitamin D3 1 tab PO DAILY 02/07/16 01/27/17 History [Calcium 600-Vit D3 400 Tablet] Aspirin EC [Ecotrin Low Dose] 81 mg PO HS 10/17/16 01/27/17 History HYDROcodone/APAP 5-325MG [[place] 1 tab PO Q6HR PRN 10/17/16 01/27/17 History 5-325] Omeprazole 20 mg PO DAILY 10/17/16 01/27/17 History Prochlorperazine [Compazine] 10 mg PO Q6H PRN 10/17/16 01/27/17 History LORazepam [Ativan] 1 mg PO DAILY PRN 01/27/17 01/27/17 History Multivitamins, Thera [Multivitamin 1 tab PO DAILY 01/27/17 01/27/17 History (formulary)] Sulfamethox-Tmp 800-160Mg [Bactrim 1 tab PO Q12HR 01/27/17 01/27/17 History DS 800-160 mg] Allergies Allergy/AdvReac Type Severity Reaction Status Date / Time No Known Allergies Allergy Verified 01/27/17 21:59 Physical Exam Osteopathic Statement: *. No significant issues noted on an osteopathic structural exam other than those noted in the History and Physical/Consult. Vitals: Vital Signs Temp Pulse Pulse Resp BP BP Pulse Ox 01/28/17 07:38 96 01/28/17 07:29 90 01/28/17 07:00 98.2 F 114 H 20 108/57 93 L 01/28/17 02:11 18 01/28/17 00:43 98.7 F 126 H 18 120/57 95 Intake and Output 01/28/17 01/28/17 01/28/17 06:59 14:59 22:59 Intake Total 300 Balance 300 Intake: Intake, IV Titration 300 Amount Sodium Chloride 0.9% 1, 300 000 ml @ 100 mls/hr IV . Q10H FADY Rx#:[id number] Other: Voiding Method Self-Catheterization Self-Catheterization Weight 79.379 kg Gen.: Patient is alert and oriented 3, no acute distress Cardiovascular: Regular rate and rhythm, S1/S2 Lungs: Diminished breath sounds on the right Abdomen: Soft nontender nondistended positive bowel sounds Extremities: No edema Results - Laboratory Findings CBC and BMP: 01/27/17 21:50 01/27/17 21:50 PT/INR, D-dimer PT 10.4 sec (9.0-12.0) 01/27/17 21:50 INR 1.0 (<1.1) 01/27/17 21:50 D-Dimer 2.23 mg/L FEU (<0.60) H 01/27/17 21:50 - Diagnostic Findings CT scan - chest: report reviewed, image reviewed Assessment and Plan Plan: Large right pleural effusion Hypoxemia Dyspnea Multiple myeloma Obstructive sleep apnea with CPAP Dyslipidemia GERD Hypothyroidism Anemia, macrocytic Hyponatremia Acute kidney injury O2 to maintain saturation greater than or equal to 88% Bronchodilators Ultrasound of the right chest to [place] for thoracentesis Plan for thoracentesis in the morning Hold anticoagulation CPAP nightly Continue patient's home medications Incentive spirometry and pulmonary hygiene Thank you for this consultation we'll continue to follow along
--- NOTE | 2017-01-28 15:34 | P.HPIM ---
History of Present Illness H&P Date: 01/28/17 Chief Complaint: Shortness of breath This a pleasant 66-year-old gentleman patient of Dr. Sanchez She has a long history of multiple myeloma, plasma cell cytoma, obstructive sleep apnea on CPAP machine hypothyroidism and impaired gait admitted to the hospital secondary to increasing shortness of breath, difficulty of breathing, worsening cough which is clear, symptoms has progressed since 4 weeks prior to admission. Patient follows with Dr. Jessica Ferguson, and Dr. 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 He was diagnosed to have multiple myeloma in 2009 requiring induction therapy with Velcade and Decadron followed by stem cell transplant in 2010, he was also given Revlimid and Decadron for 6 months in 20 08/19/2012 with good response, he maintains treatment with arm at the [facility] with no current treatment for the past 4 weeks In the emergency room he had a CTA off the chest that shows a large right-sided pleural effusion with extensive atelectasis of the right lung, moderate dependent density posteriorly in the right hemithorax may show pleural thickening versus small amount of blood products, there is new prominent nodular skin thickening affecting the left base otherwise neck and left upper chest wall tissue and right anterior chest wall soft tissue. Consults were made with Dr. Jessica Ferguson, thoracic ultrasound ordered, patient is not on any anticoagulation except for aspirin Review of Systems Constitutional: Reports as per HPI, Denies anorexia, Denies chills, Denies chronic headaches, Denies chronic pain, Denies daytime sleepiness, Denies fatigue, Denies fever, Denies lethargy, Denies malaise, Denies night sweats, Denies poor appetite, Denies sweats, Denies weakness, Denies weight gain, Denies weight loss Ears, nose, mouth and throat: Reports as per HPI, Denies ant. neck pain, Denies bleeding gums, Denies dental pain, Denies dysphagia, Denies epistaxis, Denies headache, Denies hoarseness, Denies mouth pain, Denies nasal congestion, Denies nasal discharge, Denies neck fullness/pressure, Denies neck lump, Denies nose pain, Denies odynophagia, Denies post-nasal drip, Denies sinus pain, Denies sinus pressure, Denies swelling in mouth, Denies swelling in throat, Denies sore throat, Denies vertigo, Denies voice changes Cardiovascular: Reports as per HPI, Denies chest pain, Denies claudication, Denies decreased exercise tolerance, Denies dyspnea on exertion, Denies edema, Denies high blood pressure, Denies irregular heart beat, Denies leg edema, Denies lightheadedness, Denies orthopnea, Denies palpitations, Denies paroxysmal nocturnal dyspnea, Denies phlebitis, Denies rapid heart beat, Denies shortness of breath, Denies syncope Respiratory: Reports as per HPI, Reports dyspnea, Reports pain on inspiration, Denies congestion, Denies cough, Denies cough with sputum, Denies excessive sputum, Denies hemoptysis, Denies home oxygen, Denies pain, Denies pleurisy, Denies respiratory infections, Denies sleep apnea, Denies snoring, Denies wheezing Gastrointestinal: Reports as per HPI, Denies abdominal pain, Denies belching, Denies bloating, Denies BRBPR, Denies change in bowel habits, Denies coffee ground emesis, Denies constipation, Denies diarrhea, Denies dyspepsia, Denies early satiety, Denies excessive gas, Denies heartburn, Denies hematemesis, Denies hematochezia, Denies indigestion, Denies jaundice, Denies lactose intolerance, Denies loss of appetite, Denies melena, Denies nausea, Denies vomiting Genitourinary: Reports as per HPI, Denies decreased libido, Denies difficulties fathering child, Denies discharge, Denies dysuria, Denies erectile dysfunction, Denies flank pain, Denies genital pain, Denies genital sores, Denies hematuria, Denies impotence, Denies incontinence, Denies kidney stones, Denies nocturia, Denies polyuria, Denies testicular lump, Denies testicular pain, Denies urinary frequency, Denies urinary hesitancy, Denies urinary retention Musculoskeletal: Reports as per HPI, Denies arm numbness/tingling, Denies atrophy, Denies fractures, Denies frequent falls, Denies gait dysfunction, Denies hot joints, Denies leg numbness/tingling, Denies limitation of motion, Denies loss of height, Denies low back pain, Denies morning stiffness, Denies muscle cramps, Denies muscle weakness, Denies myalgias, Denies neck pain, Denies neck stiffness, Denies prior amputations, Denies redness of joints, Denies shooting arm pain, Denies shooting leg pain Integumentary: Reports as per HPI, Denies acne, Denies boils, Denies brittle nails, Denies change in hair/nails, Denies color changes, Denies darkening of skin, Denies depigmentation, Denies dryness, Denies foot/leg ulcers, Denies growths, Denies hirsutism, Denies lesions, Denies onychomycosis, Denies pruritus , Denies rash, Denies sores, Denies striae, Denies unusual bruising, Denies wounds Neurological: Reports as per HPI, Denies aphasia, Denies ataxia, Denies balance difficulties, Denies burning pain, Denies change in mentation, Denies change in smell/taste, Denies change in speech, Denies confusion, Denies convulsions, Denies double vision, Denies gait dysfunction, Denies head injury, Denies headaches, Denies hearing difficulties, Denies lack of coordination, Denies loss of vision, Denies memory loss, Denies migraines, Denies motor disturbance, Denies numbness, Denies paralysis, Denies paresthesias, Denies seizures, Denies sensory deficit, Denies spasticity, Denies syncope, Denies tic, Denies tingling , Denies transient paralysis, Denies tremors, Denies vertigo, Denies weakness, Denies visual changes Psychiatric: Reports as per HPI, Denies anhedonia, Denies anxiety, Denies anxiety attacks, Denies change in appetite, Denies change in libido, Denies change in sleep habits, Denies confusion, Denies depression, Denies difficulty concentrating, Denies disorientation, Denies hallucinations, Denies hopelessness , Denies hypersomnia, Denies insomnia, Denies irritability, Denies memory loss, Denies mood swings, Denies paranoia, Denies sadness/tearfulness, Denies sleep disturbances, Denies suicidal ideation Endocrine: Reports as per HPI, Denies cold intolerance, Denies deepening of the voice, Denies excessive sweating, Denies excessive thirst, Denies fatigue, Denies flushing, Denies heat intolerance, Denies high blood sugars, Denies increase in ring/shoe/hat size, Denies low blood sugars, Denies nocturia, Denies palpitations, Denies polydipsia, Denies polyphagia, Denies polyuria, Denies proptosis, Denies recent glucocorticoid use, Denies thyroid mass, Denies weight change Hematologic/Lymphatic: Reports as per HPI, Denies easy bleeding, Denies easy bruising, Denies lymphadenopathy, Denies lymphedema, Denies thrombophilia Allergic/Immunologic: Reports as per HPI, Denies allergic rhinitis, Denies anaphylaxis, Denies angioedema, Denies gluten intolerance, Denies persistent infections, Denies seasonal allergies, Denies urticaria, Denies wheezing Past Medical History Past Medical History: Cancer, GERD/Reflux, Hyperlipidemia, Sleep Apnea/CPAP/ BIPAP, Thyroid Disorder Additional Past Medical History / Comment(s): back fracture t-12, multiple myloma, skin cancer with removals upper back and forehead, hypothyroidism, BURNS PAIUTE bilaterally, ELVA with CPAP, unsteady gait with back pain. 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 Past Anesthesia/Blood Transfusion Reactions: No Reported Reaction Additional Past Anesthesia/Blood Transfusion Reaction / Comment(s): Pt received blood in past without reaction. 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 He is normally independent. he uses a cane He drives. His gait is unsteady with his back pain. Has lived in several places including as recently [place] where he retired from his academic practice. Is originally from [place] is moved back here in his detention. His 2 adult children live in [place] they do visit. No one has been ill. He does relate that his had a mild gastroenteritis that she quickly resolved. He believes he started with a gastroenteritis resolved and it came back and has been persistent. The spouse does relate that with his chemotherapy he has certainly had intermittent bouts of diarrhea but this seems to be about the worst that he has had. It is noted he has urinary retention and does straight cath 4 times a day. No experience. No international travel. No tobacco use. No recreational drug use Smoking Status: Never smoker Past Alcohol Use History: Occasional Past Drug Use History: None Reported - Past Family History Mother Family Medical History: No Reported History Additional Family Medical History / Comment(s): Mother was healthy and lived to be 90 yrs old. Father Family Medical History: Cancer Additional Family Medical History / Comment(s): Father of pancreatic cancer at age 76 yrs. Brother(s) Family Medical History: Cancer Additional Family Medical History / Comment(s): stomach CA Medications and Allergies Home Medications Medication Instructions Recorded Confirmed Type Acyclovir 400 mg PO BID 06/28/15 01/27/17 History Levothyroxine Sodium [Synthroid] 50 mcg PO DAILY 06/28/15 01/27/17 History Simvastatin [Zocor] 20 mg PO HS 06/28/15 01/27/17 History Tamsulosin HCl [Flomax] 0.4 mg PO HS 06/28/15 01/27/17 History Ubidecarenone [Co Q-10] 100 mg PO DAILY 06/28/15 01/27/17 History Calcium Carbonate/Vitamin D3 1 tab PO DAILY 02/07/16 01/27/17 History [Calcium 600-Vit D3 400 Tablet] Aspirin EC [Ecotrin Low Dose] 81 mg PO HS 10/17/16 01/27/17 History HYDROcodone/APAP 5-325MG [Zoar 1 tab PO Q6HR PRN 10/17/16 01/27/17 History 5-325] Omeprazole 20 mg PO DAILY 10/17/16 01/27/17 History Prochlorperazine [Compazine] 10 mg PO Q6H PRN 10/17/16 01/27/17 History LORazepam [Ativan] 1 mg PO DAILY PRN 01/27/17 01/27/17 History Multivitamins, Thera [Multivitamin 1 tab PO DAILY 01/27/17 01/27/17 History (formulary)] Sulfamethox-Tmp 800-160Mg [Bactrim 1 tab PO Q12HR 01/27/17 01/27/17 History DS 800-160 mg] Allergies Allergy/AdvReac Type Severity Reaction Status Date / Time No Known Allergies Allergy Verified 01/27/17 21:59 Physical Exam Vitals: Vital Signs Temp Pulse Pulse Resp BP BP Pulse Ox 01/28/17 07:38 96 01/28/17 07:29 90 01/28/17 07:00 98.2 F 114 H 20 108/57 93 L 01/28/17 02:11 18 01/28/17 00:43 98.7 F 126 H 18 120/57 95 Intake and Output 01/27/17 01/28/17 01/28/17 22:59 06:59 14:59 Intake Total 300 Balance 300 Intake: Intake, IV Titration 300 Amount Sodium Chloride 0.9% 1, 300 000 ml @ 100 mls/hr IV . Q10H [facility] Rx#:[id number] Other: Voiding Method Self-Catheterization Self-Catheterization Weight 79.379 kg - Constitutional General appearance: average body habitus, cooperative, no acute distress - EENT Eyes: anicteric sclerae, EOMI, PERRLA, dentition normal, normal appearance ENT: hearing grossly normal, NA/AT, normal oropharynx - Neck Neck: normal ROM - Respiratory Respiratory: bilateral: CTA, negative: diminished, dullness, rales, rhonchi, wheezing - Cardiovascular Rhythm: regular Heart sounds: normal: S1, S2 Abnormal Heart Sounds: no systolic murmur, no diastolic murmur, no rub, no S3 Gallop, no S4 Gallop, no click, no other - Gastrointestinal General gastrointestinal: normal bowel sounds, soft - Integumentary Integumentary: normal, normal turgor - Neurologic Neurologic: CNII-XII intact - Musculoskeletal Musculoskeletal: gait normal, strength equal bilaterally - Psychiatric Psychiatric: A&O x's 3, appropriate affect, intact judgment & insight Results CBC & Chem 7: 01/27/17 21:50 01/27/17 21:50 Labs: Laboratory Results WBC 6.0 k/uL (3.8-10.6) 01/27/17 21:50 RBC 3.28 m/uL (4.30-5.90) L 01/27/17 21:50 Hgb 10.7 gm/dL (13.0-17.5) L 01/27/17 21:50 Hct 34.4 % (39.0-53.0) L 01/27/17 21:50 MCV 104.9 fL (80.0-100.0) H 01/27/17 21:50 MCH 32.7 pg (25.0-35.0) 01/27/17 21:50 MCHC 31.2 g/dL (31.0-37.0) 01/27/17 21:50 RDW 15.8 % (11.5-15.5) H 01/27/17 21:50 Plt Count 188 k/uL (150-450) 01/27/17 21:50 Neutrophils % 82 % 01/27/17 21:50 Lymphocytes % 4 % 01/27/17 21:50 Monocytes % 9 % 01/27/17 21:50 Eosinophils % 2 % 01/27/17 21:50 Basophils % 0 % 01/27/17 21:50 Neutrophils # 4.9 k/uL (1.3-7.7) 01/27/17 21:50 Lymphocytes # 0.3 k/uL (1.0-4.8) L 01/27/17 21:50 Monocytes # 0.6 k/uL (0-1.0) 01/27/17 21:50 Eosinophils # 0.1 k/uL (0-0.7) 01/27/17 21:50 Basophils # 0.0 k/uL (0-0.2) 01/27/17 21:50 Hypochromasia Slight 01/27/17 21:50 Macrocytosis Moderate 01/27/17 21:50 PT 10.4 sec (9.0-12.0) 01/27/17 21:50 INR 1.0 (<1.1) 01/27/17 21:50 APTT 18.3 sec (22.0-30.0) L 01/27/17 21:50 D-Dimer 2.23 mg/L FEU (<0.60) H 01/27/17 21:50 Sodium 130 mmol/L (137-145) L 01/27/17 21:50 Potassium 4.7 mmol/L (3.5-5.1) 01/27/17 21:50 Chloride 100 mmol/L (98-107) 01/27/17 21:50 Carbon Dioxide 21 mmol/L (22-30) L 01/27/17 21:50 Anion Gap 9 mmol/L 01/27/17 21:50 BUN 15 mg/dL (9-20) 01/27/17 21:50 Creatinine 1.28 mg/dL (0.66-1.25) H 01/27/17 21:50 Est GFR (MDRD) Af Amer >60 (>60 ml/min/1.73 sqM) 01/27/17 21:50 Est GFR (MDRD) Non-Af 56 (>60 ml/min/1.73 sqM) 01/27/17 21:50 Glucose 107 mg/dL (74-99) H 01/27/17 21:50 Calcium 9.0 mg/dL (8.4-10.2) 01/27/17 21:50 Phosphorus 4.4 mg/dL (2.5-4.5) 01/27/17 21:50 Magnesium 1.8 mg/dL (1.6-2.3) 01/27/17 21:50 Total Bilirubin 0.5 mg/dL (0.2-1.3) 01/27/17 21:50 AST 39 U/L (17-59) 01/27/17 21:50 ALT 37 U/L (21-72) 01/27/17 21:50 Alkaline Phosphatase 106 U/L (38-126) 01/27/17 21:50 Total Creatine Kinase 45 U/L (55-170) L 01/27/17 21:50 CK-MB (CK-2) 1.5 ng/mL (0.0-2.4) 01/27/17 21:50 CK-MB (CK-2) Rel Index 3.3 01/27/17 21:50 Troponin I <0.012 ng/mL (0.000-0.034) 01/27/17 21:50 NT-Pro-B Natriuret Pep 441 pg/mL 01/27/17 21:50 Total Protein 5.8 g/dL (6.3-8.2) L 01/27/17 21:50 Albumin 3.2 g/dL (3.5-5.0) L 01/27/17 21:50 TSH 12.000 mIU/L (0.465-4.680) H 01/27/17 21:50 Urine Color Yellow 01/28/17 00:06 Urine Appearance Clear (Clear) 01/28/17 00:06 Urine pH 5.5 (5.0-8.0) 01/28/17 00:06 Ur Specific [place] 1.025 (1.001-1.035) 01/28/17 00:06 Urine Protein Negative (Negative) 01/28/17 00:06 Urine Glucose (UA) Negative (Negative) 01/28/17 00:06 Urine Ketones Trace (Negative) H 01/28/17 00:06 Urine Blood Negative (Negative) 01/28/17 00:06 Urine Nitrite Negative (Negative) 01/28/17 00:06 Urine Bilirubin Negative (Negative) 01/28/17 00:06 Urine Urobilinogen <2.0 mg/dL (<2.0) 01/28/17 00:06 Ur Leukocyte Esterase Negative (Negative) 01/28/17 00:06 Thrombosis Risk Factor Assmnt - DVT/VTE Prophylaxis DVT/VTE Prophylaxis: Pharmacologic Prophylaxis ordered - Choose All That Apply Any of the Below Risk Factors Present?: No Each Risk Factor Represents 2 Points: Age 61-74 years Thrombosis Risk Factor Assessment Total Risk Factor Score: 2 Thrombosis Risk Factor Assessment Level: Low Risk Assessment and Plan Plan: 1. Large pleural effusion at the right side with left shift secondary to mass effect presenting with dyspnea, underlying history of multiple myeloma, malignant effusion cannot be ruled out, patient seen consultation by Dr. Mackey/Kenroy Ferguson from pulmonary medicine, thoracic ultrasound was requested. 2. Multiple myeloma under the care of Dr. Flor from [facility], he has been of any treatment for the past 4 weeks, patient will be seen in consult Dr. Moon oncologist 3. 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 Hyperlipidemia on Zocor 5. Recent urinary tract infection completing Bactrim treatments last dose 01/28 6 Hypothyroidism elevated TSH, supplement increased to levothyroxine 75 micrograms daily 7. Compression fracture L1-L2 with increased loss height since previous exam multifocal lytic lesions noted in the vertebral bodies representing multiple myeloma 8. Increased small pericardial effusion, consult was made with cardiology echocardiogram is requested 9 BPH without Lovenox tract symptomatology on Flomax 10. Nonspecific hypoattenuating lesion posterior right hepatic lobe and new nonspecific abnormal soft tissue noted T right hepatic lobe right kidney 11 GI prophylaxis and DVT prophylaxis
--- NOTE | 2017-01-28 16:06 | US ---
EXAMINATION TYPE: US chest DATE OF EXAM: 01/28/2017 3:40 PM COMPARISON: NONE CLINICAL HISTORY: right chest US to rico for thoracentesis please. EXAM MEASUREMENTS: Right Pleural Effusion fluid pocket: 5.3 cm Right skin to fluid thickness: 2.7 cm Left Pleural Effusion fluid pocket: 0.6 cm Right side marked for possible thoracentesis outside the dept. Left side NOT marked for possible thoracentesis outside the dept. Pulmonologists are able to review the images in the patient?s EMR. IMPRESSIONS: 1. Small right pleural effusion. 2. Minimal left-sided pleural fluid
--- NOTE | 2017-01-28 20:38 | P.CONS ---
History of Present Illness - Reason for Consult Consult date: 01/28/17 Multiple Myeloma, pleural effusion - History of Present Illness The patient is a 66-year-old gentleman well known to our service. He was previously followed by Dr. Moon in the outpatient setting. He was diagnosed with multiple myeloma in [place] in 2009, when an x-ray following an injury to his right lower exudate revealed lytic lesions. He was treated with induction therapy with Velcade and Decadron, followed by autologous stem cell transplant in early 2010. He was then on maintenance Revlimid for about a year and then stopped it at his own request. He was then placed back on Revlimid and Decadron for about 6 months in late 2010-early 2011 because of rising M protein, again with a good response. He remained in remission until about the mid 2013. At that time he was placed on low-dose Velcade for maintenance. He continued on that until April 2015, at which time due to progressive increase in M protein, he was changed over to Kyprolis. However, by 07/02 he had developed progression with development of a plasmacytoma biopsy proven, in the upper sternal region. At this point he was referred to [facility], and continued care there. He has received radiation to the chest wall twice for plasmacytomas, as well as to the skull for the same. Medical treatments have included Kyprolis, Pomalyst, and Elotuzumab, Daratumumab and Pomalyst, till 10/02, when he was admitted here with UTI and sepsis. Post discharge, he had treatment with CyBOR-D , with initil response and then progression. This this was stopped in 01/01. He was admitted witht progressive SOB since 10 days, associated with discomfort on inspiration. He came to the ER, where CTA revealed a large pleural effusion, though no PE. He was thus admitted, and consult placed. Review of Systems Constitutional: Reports fatigue, Reports weakness Eyes: denies blurred vision, denies pain Ears: deny: decreased hearing, ear discharge, earache, tinnitus Ears, nose, mouth and throat: Reports neck lump, Denies headache, Denies sore throat Cardiovascular: Reports chest pain, Reports dyspnea on exertion Respiratory: Reports dyspnea, Reports pain on inspiration Gastrointestinal: Denies abdominal pain, Denies diarrhea, Denies nausea, Denies vomiting Genitourinary: Reports as per HPI Musculoskeletal: Reports low back pain, Reports muscle weakness Integumentary: Reports as per HPI (RT changes rt neck, rt upper chest. Plasmacytomas left chest wall, rt breast area) Neurological: Reports weakness Psychiatric: Denies anxiety, Denies depression Endocrine: Reports fatigue Hematologic/Lymphatic: Reports as per HPI Past Medical History Past Medical History: Cancer, GERD/Reflux, Hyperlipidemia, Sleep Apnea/CPAP/ BIPAP, Thyroid Disorder Additional Past Medical History / Comment(s): back fracture t-12, multiple myloma, skin cancer with removals upper back and forehead, hypothyroidism, PAUMA bilaterally, ELVA with CPAP, unsteady gait with back pain. 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 Past Anesthesia/Blood Transfusion Reactions: No Reported Reaction Additional Past Anesthesia/Blood Transfusion Reaction / Comm: Pt received blood in past without reaction. 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 He is normally independent. he uses a cane He drives. His gait is unsteady with his back pain. Has lived in several places including as recently [place] where he retired from his academic practice. Is originally from [place] is moved back here [place]. His 2 adult children live in [place] they do visit. No one has been ill. He does relate that his had a mild gastroenteritis that she quickly resolved. He believes he started with a gastroenteritis resolved and it came back and has been persistent. The spouse does relate that with his chemotherapy he has certainly had intermittent bouts of diarrhea but this seems to be about the worst that he has had. It is noted he has urinary retention and does straight cath 4 times a day. No experience. No international travel. No tobacco use. No recreational drug use Smoking Status: Never smoker Past Alcohol Use History: Occasional Past Drug Use History: None Reported - Past Family History Mother Family Medical History: No Reported History Additional Family Medical History / Comment(s): Mother was healthy and lived to be 90 yrs old. Father Family Medical History: Cancer Additional Family Medical History / Comment(s): Father of pancreatic cancer at age 76 yrs. Brother(s) Family Medical History: Cancer Additional Family Medical History / Comment(s): stomach CA Medications and Allergies Home Medications Medication Instructions Recorded Confirmed Type Acyclovir 400 mg PO BID 06/28/15 01/27/17 History Levothyroxine Sodium [Synthroid] 50 mcg PO DAILY 06/28/15 01/27/17 History Simvastatin [Zocor] 20 mg PO HS 06/28/15 01/27/17 History Tamsulosin HCl [Flomax] 0.4 mg PO HS 06/28/15 01/27/17 History Ubidecarenone [Co Q-10] 100 mg PO DAILY 06/28/15 01/27/17 History Calcium Carbonate/Vitamin D3 1 tab PO DAILY 02/07/16 01/27/17 History [Calcium 600-Vit D3 400 Tablet] Aspirin EC [Ecotrin Low Dose] 81 mg PO HS 10/17/16 01/27/17 History HYDROcodone/APAP 5-325MG [Deale 1 tab PO Q6HR PRN 10/17/16 01/27/17 History 5-325] Omeprazole 20 mg PO DAILY 10/17/16 01/27/17 History Prochlorperazine [Compazine] 10 mg PO Q6H PRN 10/17/16 01/27/17 History LORazepam [Ativan] 1 mg PO DAILY PRN 01/27/17 01/27/17 History Multivitamins, Thera [Multivitamin 1 tab PO DAILY 01/27/17 01/27/17 History (formulary)] Sulfamethox-Tmp 800-160Mg [Bactrim 1 tab PO Q12HR 01/27/17 01/27/17 History DS 800-160 mg] Allergies Allergy/AdvReac Type Severity Reaction Status Date / Time No Known Allergies Allergy Verified 01/27/17 21:59 Physical Exam Vitals: Vital Signs Temp Pulse Pulse Resp BP BP Pulse Ox 01/28/17 18:22 16 01/28/17 16:32 126 H 16 119/57 95 01/28/17 15:12 98.4 F 120 H 20 116/60 97 01/28/17 07:38 96 01/28/17 07:29 90 01/28/17 07:00 98.2 F 114 H 20 108/57 93 L 01/28/17 02:11 18 01/28/17 00:43 98.7 F 126 H 18 120/57 95 Intake and Output 01/28/17 01/28/17 01/28/17 06:59 14:59 22:59 Intake Total 300 400 Balance 300 400 Intake: Intake, IV Titration 300 Amount Sodium Chloride 0.9% 1, 300 000 ml @ 100 mls/hr IV . Q10H FADY Rx#:[id number] Oral 400 Other: Voiding Method Self-Catheterization Self-Catheterization Self-Catheterization # Voids 3 Weight 79.379 kg - Constitutional General appearance: no acute distress - EENT Eyes: EOMI, PERRLA ENT: hearing grossly normal, normal oropharynx - Neck Neck: lymphadenopathy (3-4 cm mass rt lower neck) Thyroid: bilateral: normal size - Respiratory Respiratory: right: diminished, dullness - Cardiovascular Rhythm: regular Heart sounds: normal: S1, S2 - Gastrointestinal General gastrointestinal: normal bowel sounds, soft - Integumentary RT neck /upper chest wall hyperpigmentation and thickening due to RT related skin changes. Nodular rash left chest wall, rt breast - Neurologic Neurologic: CNII-XII intact - Musculoskeletal Musculoskeletal: generalized weakness, strength equal bilaterally - Psychiatric Psychiatric: A&O x's 3 Results CBC & Chem 7: 01/27/17 21:50 01/27/17 21:50 Chest x-ray: report reviewed CT scan - chest: report reviewed Assessment and Plan (1) Pleural effusion Narrative/Plan: The pt is presenting with a large rt pleural effusion which is new. Progression of myeloma is the most likely etiology, though reactive effusion due to RT is a possibility. He has been seen by Pulmonology, and thoracentesis has been ordered. I will request cytology and flow cytometry on the fluid. - If MM related effsuion is confirmed, chest tube/pleurX catheter can be considered. However pt states he is starting a new treatment or his MM on .Therefore if he achieves good symptom control, he can be followed expectantly Status: Acute (2) Multiple myeloma Narrative/Plan: The pt has progressed through multiple janine of treatment. He is to start a new regimen, but is not aware of the details, but does not think it is investigational. He will f/u with Dr Flor on discharge Status: Acute
[2017-01-28] MEDS: TAMSULOSIN 0.4 MG CAP.ER.24H PO SCH (21:48)
[2017-01-28] MEDS: ATORVASTATIN 10 MG TAB PO SCH (21:48)
[2017-01-28] MEDS: ASPIRIN 81 MG CHEW PO SCH (21:50)
[2017-01-29 05:17] LABS: Glucose,Whole Blood 106 mg/dL (75-99)
[2017-01-29] MEDS ORDERED: LEVOTHYROXINE 50 MCG TAB PO SCH (06:30)
[2017-01-29] MEDS: LEVOTHYROXINE 75 MCG TAB PO SCH (06:36)
[2017-01-29] MEDS: CALCIUM CARB-VIT D 500MG-200UN 1 EACH TAB PO SCH (08:18)
[2017-01-29] MEDS: MORPHINE SULFATE 4 MG/ML SYRINGE IVP PRN (08:18)
[2017-01-29] MEDS: PANTOPRAZOLE 40 MG TABLET PO SCH (08:18)
[2017-01-29] MEDS: SULFAMETHOX-TMP 800-160MG 1 EACH TAB PO SCH (08:19)
[2017-01-29] MEDS: ACYCLOVIR 200 MG CAP PO SCH ×2 (08:19→20:49)
--- NOTE | 2017-01-29 10:19 | ECHOF ---
Referral Reason:pleural effusion shortness of breath MEASUREMENTS -------- HEIGHT: 175.3 cm WEIGHT: 79.4 kg BP: 108/57 RVIDd: 3.5 cm (< 3.3) IVSd: 1.0 cm (0.6 - 1.1) LVIDd: 4.0 cm (3.9 - 5.3) LVPWd: 1.0 cm (0.6 - 1.1) IVSs: 1.5 cm LVIDs: 3.0 cm LVPWs: 1.7 cm LA Diam: 3.3 cm (2.7 - 3.8) LAESV Index (A-L): 14.75 ml/m Ao Diam: 3.6 cm (2.0 - 3.7) AV Cusp: 2.4 cm (1.5 - 2.6) MV EXCURSION: 17.701 mm (> 18.000) MV EF SLOPE: 167 mm/s (70 - 150) EPSS: 0.2 cm MV E Ajit: 1.23 m/s MV DecT: 109 ms MV A Ajit: 0.64 m/s MV E/A Ratio: 1.92 RAP: 5.00 mmHg RVSP: 36.39 mmHg FINDINGS -------- Resting tachycardia (HR>100bpm). This was a technically good study. The left ventricular size is normal. Left ventricular wall thickness is normal. Overall left ventricular systolic function is normal with, an EF between 55 - 60 %. Mitral Doppler inflow pattern suggests diastolic filling abnormality 14.79. The right ventricle is mildly enlarged. Normal LA size by volume 22+/-6 ml/m2. The right atrium is normal in size. The aortic valve is trileaflet and appears structurally normal. Mild mitral regurgitation is present. Mild tricuspid regurgitation present. There is mild pulmonary hypertension. Trace/mild (physiologic) pulmonic regurgitation. The aortic root size is normal. Normal inferior vena cava with normal inspiratory collapse consistent with estimated right atrial pressure of 5 mmHg. The pericardium is normal. Pleural Effusion with Fibrin. CONCLUSIONS -------- 1. Resting tachycardia (HR>100bpm). 2. The aortic valve is trileaflet and appears structurally normal. 3. Mild mitral regurgitation is present. 4. Mild tricuspid regurgitation present. 5. There is mild pulmonary hypertension. 6. Trace/mild (physiologic) pulmonic regurgitation. 7. The aortic root size is normal. 8. Normal inferior vena cava with normal inspiratory collapse consistent with estimated right atrial pressure of 5 mmHg. 9. The pericardium is normal. 10. Pleural Effusion with Fibrin. 11. This was a technically good study. 12. The left ventricular size is normal. 13. Left ventricular wall thickness is normal. 14. Overall left ventricular systolic function is normal with, an EF between 55 - 60 %. 15. Mitral Doppler inflow pattern suggest diastolic filling abnormality 14.79. 16. The right ventricle is mildly enlarged. 17. Normal LA size by volume 22+/-6 ml/m2. 18. The right atrium is normal in size. CHARHOUSE WORKER: Alice Pacheco RDCS
[2017-01-29] MEDS ORDERED: LIDOCAINE 2%-EPI 1:100,000 20 ML VIAL SQ ONE (10:45)
--- NOTE | 2017-01-29 11:33 | P.PCN ---
Date of Procedure: 01/29/17 Preoperative Diagnosis: Large right pleural effusion Postoperative Diagnosis: Same Procedure(s) Performed: Right thoracentesis Anesthesia: local Surgeon: Salma Hartley [employer] Clerk #1: Km Ferguson Condition: stable Disposition: no change Indications for Procedure: Large right pleural efffusion, multiple myeloma Operative Findings: 2.1 L bloody pleural fluid removed Description of Procedure: A time-out was completed verifying correct patient, procedure, site, positioning , and special equipment if applicable. The patients right side was prepped and draped in a sterile manner after the appropriate infiltration level was confirmed by ultrasound. 2% lidocaine with epinephrine was used anesthetize the surrounding skin. A finder needle was then used to locate fluid and clear yellow fluid was obtained. A 10-blade scalpel used to make the incision. The thoracentesis catheter was then threaded without difficulty. The patient had 2.1L of bloody fluid removed. A post-procedure chest x-ray was ordered and the fluid will be sent for several studies. The patient tolerated the procedure well and there were no complications.
--- NOTE | 2017-01-29 11:41 | P.PN ---
Subjective Principal diagnosis: right pleural effusion patient seen and examined with his at bedside. The patient is agreeable to undergo thoracentesis today. All his questions are answered. His is at bedside and her questions are also answered. Objective - Vital Signs Vital signs: Vital Signs Temp 98.3 F 01/29/17 07:00 Pulse 112 H 01/29/17 11:23 Resp 20 01/29/17 08:00 BP 102/56 01/29/17 11:23 Pulse Ox 99 01/29/17 11:23 Intake & Output 01/28/17 01/29/17 01/29/17 18:59 06:59 18:59 Intake Total 400 400 Output Total 600 300 Balance 400 -200 -300 Weight 79.379 kg Intake: Intake, IV Titration 300 Amount Sodium Chloride 0.9% 1, 300 000 ml @ 100 mls/hr IV . Q10H FADY Rx#:[id number] Oral 400 100 Output: Urine 600 300 Other: Voiding Method Self-Catheterization Self-Catheterization Self-Catheterization # Voids 3 1 1 - Exam Gen.: Patient is alert and oriented 3, no acute distress Cardiovascular: Regular rate and rhythm, S1/S2 Lungs: Diminished breath sounds on the right Abdomen: Soft nontender nondistended positive bowel sounds Extremities: No edema - Labs CBC & Chem 7: 01/27/17 21:50 01/27/17 21:50 Labs: Abnormal Lab Results - Last 24 Hours (Table) 01/29/17 Range/Units 04:56 POC Glucose (mg/dL) 106 H (75-99) mg/dL Assessment and Plan Plan: Large right pleural effusion Hypoxemia Dyspnea Multiple myeloma Obstructive sleep apnea with CPAP Dyslipidemia GERD Hypothyroidism Anemia, macrocytic Hyponatremia Acute kidney injury O2 to maintain saturation greater than or equal to 88% Bronchodilators thoracentesis today Hold anticoagulation CPAP nightly Continue patient's home medications Incentive spirometry and pulmonary hygiene
[2017-01-29] MEDS ORDERED: MULTIVITAMINS, THERA 1 EACH TAB PO SCH (12:00)
--- NOTE | 2017-01-29 12:19 | XR ---
EXAMINATION TYPE: XR chest 2V DATE OF EXAM: 01/29/2017 11:40 AM HISTORY: post thoracentesis. REFERENCE: Previous study dated 11/01/2016. FINDINGS: There is an enlarging right-sided effusion. There is associated atelectasis at the right barney ng base. The heart is mildly enlarged. There is colonic interposition on the left. IMPRESSION: ENLARGING RIGHT-SIDED PLEURAL EFFUSION.
--- NOTE | 2017-01-29 13:12 | CONS ---
DATE OF CONSULTATION: Mr. Mcintosh is a 66-year-old gentleman who is seen for the cardiac evaluation. Patient's medical records reviewed. This patient came to the emergency room with the complaint of shortness of breath and some chest pain. Patient was found to have a large right-sided pleural effusion and the patient was admitted. We were requested to see this patient in consultation for sinus tachycardia as well as a small amount of pericardial effusion. Patient has been treated for multiple myeloma since 2009, had a bone marrow transplant before and subsequently patient has been getting chemotherapy as well as radiation therapy. Patient denies any fever or chills. Denies any significant shortness of breath. There is no prior cardiac history of myocardial infarction, diabetes or hypertension. Past medical history includes history of hyperlipidemia, sleep apnea and thyroid disorder, history of multiple myeloma, hypothyroidism, orthopedic surgery and tonsillectomy. Patient's home medications include Synthroid, Zocor, Flomax, Compazine, Ativan and Bactrim. Physical examination at present reveals a 66-year-old gentleman who does not appear to be in any acute distress. Patient's heart rate runs between 114 to 120. Blood pressure is 125/80 mmHg. HEENT examination is negative. Neck is supple. There is no increase in jugular venous pressure. There is a mass felt on the right side of the neck. Carotids are normal. Chest is symmetrical. HEART: The PMI is not felt. First and second heart sounds are normal. No murmurs are heard. Lung examination revealed mildly diminished air entry on the right side. ABDOMEN: Soft. EXTREMITIES: There is no evidence of any leg edema. Patient's electrolytes are normal. ProBNP level is 441. TSH is slightly high. Troponin is normal. Patient's CT scan revealed small pericardial effusion. Echocardiogram shows a normal left ventricular systolic function. No significant pericardial effusion is noted. FINAL IMPRESSION: 1. This patient is admitted with a large pleural effusion, most likely secondary to multiple myeloma. 2. Patient has a persistent sinus tachycardia, exact etiology undetermined, could be secondary to a combination of the chemo and recent development of the pleural effusion. Patient's echocardiogram shows a normal left ventricular systolic function. There is no evidence of any significant pericardial effusion by echocardiogram. By CAT scan, there is minimal pericardial effusion for which at present no therapy is recommended. Patient is getting systemic chemotherapy for advanced multiple myeloma. We will try the patient on Lopressor 25 mg b.i.d. to treat the sinus tachycardia.
--- NOTE | 2017-01-29 14:27 | P.PN ---
Subjective This a pleasant 66-year-old gentleman patient of Dr. Sanchez She has a long history of multiple myeloma, plasma cell cytoma, obstructive sleep apnea on CPAP machine hypothyroidism and impaired gait admitted to the hospital secondary to increasing shortness of breath, difficulty of breathing, worsening cough which is clear, symptoms has progressed since 4 weeks prior to admission. Patient follows with Dr. Jessica Ferguson, and Dr. Flor from [facility] for multiple myeloma, also has radiation treatment for the plasma cell cytoma lesions in the skin. He was diagnosed to have multiple myeloma in 2009 requiring induction therapy with Velcade and Decadron followed by stem cell transplant in 2010, he was also given Revlimid and Decadron for 6 months in 08/19/2012 with good response, he maintains treatment with arm at the [facility] with no current treatment for the past 4 weeks In the emergency room he had a CTA off the chest that shows a large right-sided pleural effusion with extensive atelectasis of the right lung, moderate dependent density posteriorly in the right hemithorax may show pleural thickening versus small amount of blood products, there is new prominent nodular skin thickening affecting the left base otherwise neck and left upper chest wall tissue and right anterior chest wall soft tissue. Consults were made with Dr. Jessica Ferguson, thoracic ultrasound ordered, patient is not on any anticoagulation except for aspirin 01/29: Patient has been seen by Dr. Brody from oncology. Large right pleural effusion is new and progression of myeloma is most likely etiology though reactive effusion is possibility. If MM related effusion is confirmed, chest tube/Pleurx catheter can be considered. Ultrasound of the chest with right sided pleural effusion and marked for possible thoracentesis and left side not marked due to minimal left-sided pleural effusion. Patient has been seen by Dr. Hartley with plan for thoracentesis today which removed 2.1 L of bloody pleural fluid. Echocardiogram reveals mild mitral regurgitation, mild tricuspid regurgitation, mild pulmonary hypertension, mild pulmonic regurgitation, pleural effusion with fibrin, EF 55-60%. Cardiology has started him on Lopressor for tachycardia. Anticipate discharge home tomorrow Objective - Vital Signs Vital signs: Vital Signs Temp 98.3 F 01/29/17 07:00 Pulse 118 H 01/29/17 08:00 Resp 20 01/29/17 08:00 BP 125/60 01/29/17 07:00 Pulse Ox 97 01/29/17 07:00 Intake & Output 01/28/17 01/29/17 01/29/17 18:59 06:59 18:59 Intake Total 400 400 Output Total 600 300 Balance 400 -200 -300 Weight 79.379 kg Intake: Intake, IV Titration 300 Amount Sodium Chloride 0.9% 1, 300 000 ml @ 100 mls/hr IV . Q10H FADY Rx#:[id number] Oral 400 100 Output: Urine 600 300 Other: Voiding Method Self-Catheterization Self-Catheterization Self-Catheterization # Voids 3 1 1 - Exam General appearance: average body habitus, cooperative, no acute distress - EENT Eyes: anicteric sclerae, EOMI, PERRLA, dentition normal, normal appearance ENT: hearing grossly normal, NA/AT, normal oropharynx - Neck Neck: normal ROM - Respiratory Respiratory: bilateral: CTA, negative: diminished, dullness, rales, rhonchi, wheezing - Cardiovascular Rhythm: regular Heart sounds: normal: S1, S2 Abnormal Heart Sounds: no systolic murmur, no diastolic murmur, no rub, no S3 Gallop, no S4 Gallop, no click, no other - Gastrointestinal General gastrointestinal: normal bowel sounds, soft - Integumentary Integumentary: normal, normal turgor - Neurologic Neurologic: CNII-XII intact - Musculoskeletal Musculoskeletal: gait normal, strength equal bilaterally - Psychiatric Psychiatric: A&O x's 3, appropriate affect, intact judgment & insight - Labs CBC & Chem 7: 01/27/17 21:50 01/27/17 21:50 Labs: Abnormal Lab Results - Last 24 Hours (Table) 01/29/17 Range/Units 04:56 POC Glucose (mg/dL) 106 H (75-99) mg/dL Assessment and Plan Plan: 1. Large pleural effusion at the right side with left shift secondary to mass effect presenting with dyspnea, underlying history of multiple myeloma, malignant effusion cannot be ruled out, patient seen consultation by Dr. Hartley and Dr. Brody. Thoracentesis completed. 2. Multiple myeloma under the care of Dr. Flor from [facility], he has been of any treatment for the past 4 weeks, patient will be seen in consult Dr. Brody oncologist 3. 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 Hyperlipidemia on Zocor 5. Recent urinary tract infection completing Bactrim treatments last dose 01/28 6 Hypothyroidism elevated TSH, supplement increased to levothyroxine 75 micrograms daily 7. Compression fracture L1-L2 with increased loss height since previous exam multifocal lytic lesions noted in the vertebral bodies representing multiple myeloma 8. Increased small pericardial effusion, consult was made with cardiology echocardiogram is requested 9 BPH without Lovenox tract symptomatology on Flomax 10. Nonspecific hypoattenuating lesion posterior right hepatic lobe and new nonspecific abnormal soft tissue noted T right hepatic lobe right kidney 11 GI prophylaxis and DVT prophylaxis Discharge plan: Home with [facility] most likely on Wednesday Impression and plan of care have been directed as dictated by the signing physician. Lakeisha Rodriguez nurse practitioner acting as scribe for signing physician. Time with Patient: Greater than 30
[2017-01-29] MEDS: METOPROLOL TARTRATE 25 MG TAB PO SCH ×2 (14:42→22:09)
[2017-01-29 14:48] LABS: RBC, Body Fluid 340000 /uL
[2017-01-29 14:54] LABS: Body Fluid Comment Few Mesothelial
[2017-01-29] MEDS: HYDROcodone/APAP 5-325MG 1 EACH TAB PO PRN (17:06)
[2017-01-29 19:10] VITALS: RESP 16
[2017-01-29] MEDS: TAMSULOSIN 0.4 MG CAP.ER.24H PO SCH (20:50)
[2017-01-29] MEDS: ATORVASTATIN 10 MG TAB PO SCH (20:50)
[2017-01-29] MEDS: ASPIRIN 81 MG CHEW PO SCH (20:51)
[2017-01-29 23:30] VITALS: PULSE 116
[2017-01-30] MEDS: LEVOTHYROXINE 75 MCG TAB PO SCH (06:11)
[2017-01-30] MEDS: HYDROcodone/APAP 5-325MG 1 EACH TAB PO PRN (06:44)
[2017-01-30 08:06] VITALS: BP 113/54; TEMP 97.4
[2017-01-30] MEDS: PANTOPRAZOLE 40 MG TABLET PO SCH (09:03)
[2017-01-30] MEDS: ACYCLOVIR 200 MG CAP PO SCH (09:04)
[2017-01-30] MEDS: METOPROLOL TARTRATE 25 MG TAB PO SCH (09:04)
[2017-01-30] MEDS: CALCIUM CARB-VIT D 500MG-200UN 1 EACH TAB PO SCH (09:04)
--- NOTE | 2017-01-30 16:15 | PN ---
Patient was seen on 01/30/2017. He is less short of breath. On physical examination, his vitals are stable. He is afebrile. His chest reveals decreased breath sounds at the right base. Cardiovascular system reveals S1 and S2. Abdomen is soft. There is no edema. IMPRESSION AT THIS TIME: 1. Right pleural effusion that is sanguinous, which may be due to malignant etiology. 2. Multiple myeloma, status post radiation treatment for plasma cell cytoma. At this point in time, agree with possible discharge planning. Depending on how he does, we shall make further changes to his care. He was counseled regarding his condition. The patient will follow with Dr. Salma Hartley in 48 hours if he is discharged.
--- NOTE | 2017-02-12 14:29 | P.DS ---
Providers Date of admission: 01/28/17 00:15 Expected date of discharge: 01/30/17 Attending physician: Bonnie Goodwin Consults: 01/28/17 16:02 Consult Physician Routine Consulting Provider: Moi Ferguson Consult Reason/Comments: pericardial effusion, multiple myeloma Do you want consulting provider notified?: Yes Primary care physician: [facility] Course: This a pleasant 66-year-old gentleman patient of Dr. Sanchez She has a long history of multiple myeloma, plasma cell cytoma, obstructive sleep apnea on CPAP machine hypothyroidism and impaired gait admitted to the hospital secondary to increasing shortness of breath, difficulty of breathing, worsening cough which is clear, symptoms has progressed since 4 weeks prior to admission. Patient follows with Dr. Jessica Ferguson, and Dr. Flor from [facility] for multiple myeloma, also has radiation treatment for the plasma cell cytoma lesions in the skin. He was diagnosed to have multiple myeloma in 2009 requiring induction therapy with Velcade and Decadron followed by stem cell transplant in 2010, he was also given Revlimid and Decadron for 6 months in 20 08/19/2012 with good response, he maintains treatment with arm at the [facility] with no current treatment for the past 4 weeks In the emergency room he had a CTA off the chest that shows a large right-sided pleural effusion with extensive atelectasis of the right lung, moderate dependent density posteriorly in the right hemithorax may show pleural thickening versus small amount of blood products, there is new prominent nodular skin thickening affecting the left base otherwise neck and left upper chest wall tissue and right anterior chest wall soft tissue. Consults were made with Dr. Jessica Ferguson, thoracic ultrasound ordered, patient is not on any anticoagulation except for aspirin 01/29: Patient has been seen by Dr. Brody from oncology. Large right pleural effusion is new and progression of myeloma is most likely etiology though reactive effusion is possibility. If MM related effusion is confirmed, chest tube/Pleurx catheter can be considered. Ultrasound of the chest with right sided pleural effusion and marked for possible thoracentesis and left side not marked due to minimal left-sided pleural effusion. Patient has been seen by Dr. Hartley with plan for thoracentesis today which removed 2.1 L of bloody pleural fluid. Echocardiogram reveals mild mitral regurgitation, mild tricuspid regurgitation, mild pulmonary hypertension, mild pulmonic regurgitation, pleural effusion with fibrin, EF 55-60%. Cardiology has started him on Lopressor for tachycardia. Anticipate discharge home tomorrow 01/30: Patient has been hemodynamically stable and afebrile. Shortness of breath is improved. Patient has been cleared for discharge by consultants. Patient will be discharged home today in stable condition. Discharge diagnoses: 1. Large pleural effusion at the right side with left shift secondary to mass effect presenting with dyspnea, underlying history of multiple myeloma, malignant effusion cannot be ruled out 2. Multiple myeloma under the care of Dr. 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 Hyperlipidemia 5. Recent urinary tract infection completing Bactrim treatments last dose 01/28 6 Hypothyroidism 7. Pathologic compression fracture L1-L2 with increased loss height since previous exam 12/09/2015 multifocal lytic lesions noted in the vertebral bodies representing multiple myeloma 8. Increased small pericardial effusion 9 BPH 10. Nonspecific hypoattenuating lesion posterior right hepatic lobe and new nonspecific abnormal soft tissue noted T right hepatic lobe right kidney Discharge plan: Home with [facility] Impression and plan of care have been directed as dictated by the signing physician. Lakeisha Rodriguez nurse practitioner acting as scribe for signing physician. Patient Condition at Discharge: Good Plan - Discharge Summary Discharge Medication List Acyclovir 400 mg PO BID 06/28/15 [History] Levothyroxine Sodium [Synthroid] 50 mcg PO DAILY 06/28/15 [History] Simvastatin [Zocor] 20 mg PO HS 06/28/15 [History] Tamsulosin HCl [Flomax] 0.4 mg PO HS 06/28/15 [History] Ubidecarenone [Co Q-10] 100 mg PO DAILY 06/28/15 [History] Omeprazole 20 mg PO DAILY 10/17/16 [History] Prochlorperazine [Compazine] 10 mg PO Q6H PRN 10/17/16 [History] LORazepam [Ativan] 1 mg PO DAILY PRN 01/27/17 [History] Multivitamins, Thera [Multivitamin (formulary)] 1 tab PO DAILY 01/27/17 [History ] HYDROcodone/APAP 7.5-325MG [[place] 7.5-325] 1 tab PO Q4H PRN 02/02/17 [History] Lactulose 10 gm PO DAILY PRN 02/02/17 [History] Morphine Sulfate ER [Ms Contin] 15 mg PO Q12HR PRN 02/02/17 [History] Baclofen [Lioresal] 10 mg PO BID PRN #60 tab 02/08/17 [Rx] Ipratropium-Albuterol Nebulize [Duoneb 0.5 mg-3 mg/3 ml Soln] 3 ml INHALATION RT -QID PRN #120 ampul.neb 02/08/17 [Rx] Metoprolol Tartrate [Lopressor] 25 mg PO BID #60 tab 02/08/17 [Rx] Triamcinolone 0.5% Cream [Kenalog 0.5% Cream] 1 applic TOPICAL BID #30 gm [Rx] Follow up Appointment(s)/Referral(s): Altaf Sanchez MD [Primary Care Provider] - 1-2 days Patient Instructions/Handouts: Pleural Effusion (DC), Weakness (GEN), Hypoxia ( GEN) Activity/Diet/Wound Care/Special Instructions: [facility] Tod[facility]-[phone] Call on Wednesday to schedule appointments. Office closed on sat Discharge Disposition: HOME WITH HOME HEALTH SERVICES
== END 2017-01-30 11:10 | disposition home health service (06) | DRG 841 ==
LOC: EC 21:20 → 5MS5E 01-28 00:15
PROVIDERS: ADMIT Family Medicine; ATTEND Family Medicine
PROC: 0W993ZX Drainage of Right Pleural Cavity, Percutaneous Approach, Diagnostic (ICD-10-PCS; principal; 2017-01-29)
DX: C90.00 Multiple myeloma not having achieved remission (principal); J91.0 Malignant pleural effusion; N17.9 Acute kidney failure, unspecified; I31.3 Pericardial effusion (noninflammatory); Z94.84 Stem cells transplant status; E87.1 Hypo-osmolality and hyponatremia; M48.56XA Collapsed vertebra, not elsewhere classified, lumbar region, initial encounter for fracture; J98.11 Atelectasis; I27.2 Other secondary pulmonary hypertension; I08.1 Rheumatic disorders of both mitral and tricuspid valves; D53.9 Nutritional anemia, unspecified; G47.33 Obstructive sleep apnea (adult) (pediatric); E03.9 Hypothyroidism, unspecified; K21.9 Gastro-esophageal reflux disease without esophagitis; N40.1 Benign prostatic hyperplasia with lower urinary tract symptoms; R33.8 Other retention of urine; E78.5 Hyperlipidemia, unspecified; I37.1 Nonrheumatic pulmonary valve insufficiency; Z85.828 Personal history of other malignant neoplasm of skin; Z92.3 Personal history of irradiation; Z79.82 Long term (current) use of aspirin; Z79.899 Other long term (current) drug therapy
CPT/HCPCS: 36415; 71020; 71275; 76604; 80053; 81003; 82550; 82553; 82945; 83615; 83735; 83880; 84100; 84155; 84157; 84443; 84484; 85025; 85379; 85610; 85730; 87070; 87205; 88184; 88185; 89050; 93005; 93306; 94640; 99285

== ENCOUNTER 2017-02-02 17:26 | Inpatient (IN) | payer MEDICARE ==
[2017-02-02] MEDS ORDERED: SODIUM CHLORIDE 0.9% 1,000 ML IV STA (18:03)
--- NOTE | 2017-02-02 18:08 | ED ---
General Adult HPI - General Chief complaint: Shortness of Breath Stated complaint: Shortness of breath Time Seen by Provider: 02/02/17 18:03 Source: patient, RN notes reviewed, old records reviewed Mode of arrival: ambulatory Limitations: no limitations - History of Present Illness Initial comments: This is a 58-year-old male here for evaluation of shortness of breath, heart racing. Patient recently has hospital admission for pleural effusion drainage. Patient states symptoms are progressively work it worsened. Denies chest pain. Heart is racing. No change in medication. No nausea vomiting or fever. No diarrhea. No chest - Related Data Home Medications Medication Instructions Recorded Confirmed Acyclovir 400 mg PO BID 06/28/15 02/02/17 Levothyroxine Sodium [Synthroid] 50 mcg PO DAILY 06/28/15 02/02/17 Simvastatin [Zocor] 20 mg PO HS 06/28/15 02/02/17 Tamsulosin HCl [Flomax] 0.4 mg PO HS 06/28/15 02/02/17 Ubidecarenone [Co Q-10] 100 mg PO DAILY 06/28/15 02/02/17 Omeprazole 20 mg PO DAILY 10/17/16 02/02/17 Prochlorperazine [Compazine] 10 mg PO Q6H PRN 10/17/16 02/02/17 LORazepam [Ativan] 1 mg PO DAILY PRN 01/27/17 02/02/17 Multivitamins, Thera [Multivitamin 1 tab PO DAILY 01/27/17 02/02/17 (formulary)] HYDROcodone/APAP 7.5-325MG [[place] 1 tab PO Q4H PRN 02/02/17 02/02/17 7.5-325] Lactulose 10 gm PO DAILY PRN 02/02/17 02/02/17 Morphine Sulfate ER [Ms Contin 15 mg PO Q12HR PRN 02/02/17 02/02/17 15Mg] Allergies Allergy/AdvReac Type Severity Reaction Status Date / Time No Known Allergies Allergy Verified 02/02/17 18:55 Review of Systems ROS Statement: Those systems with pertinent positive or pertinent negative responses have been documented in the HPI. ROS Other: All systems not noted in ROS Statement are negative. Past Medical History Past Medical History: Cancer, GERD/Reflux, Hyperlipidemia, Sleep Apnea/CPAP/ BIPAP, Thyroid Disorder Additional Past Medical History / Comment(s): back fracture t-12, multiple myloma, skin cancer with removals upper back and forehead, hypothyroidism, ROBINSON bilaterally, ELVA with CPAP, unsteady gait with back pain. Multiple Meloma with Plasma Cytomas 2016 Tachycardia due to Myeloma? 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 He is normally independent. he uses a cane He drives. His gait is unsteady with his back pain. 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 Is originally from [place] is moved back here in his intermediate. His 2 adult children live in [place] they do visit. No one has been ill. He does relate that his had a mild gastroenteritis that she quickly resolved. He believes he started with a gastroenteritis resolved and it came back and has been persistent. The spouse does relate that with his chemotherapy he has certainly had intermittent bouts of diarrhea but this seems to be about the worst that he has had. It is noted he has urinary retention and does straight cath 4 times a day. No experience. No international travel. No tobacco use. No recreational drug use Smoking Status: Never smoker Past Alcohol Use History: Occasional Past Drug Use History: None Reported - Past Family History Mother Family Medical History: No Reported History Additional Family Medical History / Comment(s): Mother was healthy and lived to be 90 yrs old. Father Family Medical History: Cancer Additional Family Medical History / Comment(s): Father of pancreatic cancer at age 76 yrs. Brother(s) Family Medical History: Cancer Additional Family Medical History / Comment(s): stomach CA General Exam Limitations: no limitations General appearance: alert, in no apparent distress Head exam: Present: atraumatic, normocephalic, normal inspection Eye exam: Present: normal appearance, PERRL, EOMI. Absent: scleral icterus, conjunctival injection, periorbital swelling ENT exam: Present: normal exam, mucous membranes moist Neck exam: Present: normal inspection. Absent: tenderness, meningismus, lymphadenopathy Respiratory exam: Present: normal lung sounds bilaterally. Absent: respiratory distress, wheezes, rales, rhonchi, stridor Cardiovascular Exam: Present: normal rhythm, tachycardia, normal heart sounds. Absent: systolic murmur, diastolic murmur, rubs, gallop, clicks GI/Abdominal exam: Present: soft, normal bowel sounds. Absent: distended, tenderness, guarding, rebound, rigid Extremities exam: Present: normal inspection, full ROM, normal capillary refill. Absent: tenderness, pedal edema, joint swelling, calf tenderness Back exam: Present: normal inspection Neurological exam: Present: alert, oriented X3, CN II-XII intact Psychiatric exam: Present: normal affect, normal mood Skin exam: Present: warm, dry, intact, normal color. Absent: rash Course Vital Signs 02/02/17 02/02/17 17:48 19:01 Temperature 98.8 F Pulse Rate 123 H 126 H Respiratory 26 H 18 Rate Blood Pressure 138/60 142/63 O2 Sat by Pulse 94 L 98 Oximetry EKG Findings - EKG Comments: EKG Findings:: EKG shows sinus tachycardia rate 120, CA 170, QRS 80, QTC 424 Medical Decision Making - Medical Decision Making 4 female DF evaluations severe shortness of breath increased right-sided pleural effusion with pneumonitis. Patient will be admitted for further evaluation and treatment by pulmonology - Lab Data Result diagrams: 02/02/17 18:15 02/02/17 18:15 Lab Results 02/02/17 02/02/17 02/02/17 Range/Units 18:15 18:15 18:15 WBC 4.8 (3.8-10.6) k/uL RBC 2.86 L (4.30-5.90) m/uL Hgb 9.5 L (13.0-17.5) gm/dL Hct 29.6 L (39.0-53.0) % MCV 103.3 H (80.0-100.0) fL MCH 33.1 (25.0-35.0) pg MCHC 32.0 (31.0-37.0) g/dL RDW 15.5 (11.5-15.5) % Plt Count 199 (150-450) k/uL Neutrophils % 81 % Lymphocytes % 4 % Monocytes % 11 % Eosinophils % 1 % Basophils % 0 % Neutrophils # 3.9 (1.3-7.7) k/uL Lymphocytes # 0.2 L (1.0-4.8) k/uL Monocytes # 0.5 (0-1.0) k/uL Eosinophils # 0.0 (0-0.7) k/uL Basophils # 0.0 (0-0.2) k/uL Hypochromasia Slight Macrocytosis Slight PT (9.0-12.0) sec INR (<1.1) APTT (22.0-30.0) sec D-Dimer (<0.60) mg/L FEU Sodium 133 L (137-145) mmol/L Potassium 4.2 (3.5-5.1) mmol/L Chloride 100 (98-107) mmol/L Carbon Dioxide 23 (22-30) mmol/L Anion Gap 10 mmol/L BUN 16 (9-20) mg/dL Creatinine 1.07 (0.66-1.25) mg/dL Est GFR (MDRD) Af Amer >60 (>60 ml/min/1.73 sqM) Est GFR (MDRD) Non-Af >60 (>60 ml/min/1.73 sqM) Glucose 105 H (74-99) mg/dL Calcium 9.3 (8.4-10.2) mg/dL Magnesium 2.0 (1.6-2.3) mg/dL Total Bilirubin 0.4 (0.2-1.3) mg/dL AST 41 (17-59) U/L ALT 40 (21-72) U/L Alkaline Phosphatase 114 (38-126) U/L Total Creatine Kinase 37 L (55-170) U/L CK-MB (CK-2) 1.8 (0.0-2.4) ng/mL CK-MB (CK-2) Rel Index 4.9 Troponin I <0.012 (0.000-0.034) ng/mL NT-Pro-B Natriuret Pep pg/mL Total Protein 6.0 L (6.3-8.2) g/dL Albumin 3.3 L (3.5-5.0) g/dL 02/02/17 02/02/17 Range/Units 18:15 18:15 WBC (3.8-10.6) k/uL RBC (4.30-5.90) m/uL Hgb (13.0-17.5) gm/dL Hct (39.0-53.0) % MCV (80.0-100.0) fL MCH (25.0-35.0) pg MCHC (31.0-37.0) g/dL RDW (11.5-15.5) % Plt Count (150-450) k/uL Neutrophils % % Lymphocytes % % Monocytes % % Eosinophils % % Basophils % % Neutrophils # (1.3-7.7) k/uL Lymphocytes # (1.0-4.8) k/uL Monocytes # (0-1.0) k/uL Eosinophils # (0-0.7) k/uL Basophils # (0-0.2) k/uL Hypochromasia Macrocytosis PT 10.4 (9.0-12.0) sec INR 1.0 (<1.1) APTT 22.6 (22.0-30.0) sec D-Dimer 4.24 H (<0.60) mg/L FEU Sodium (137-145) mmol/L Potassium (3.5-5.1) mmol/L Chloride (98-107) mmol/L Carbon Dioxide (22-30) mmol/L Anion Gap mmol/L BUN (9-20) mg/dL Creatinine (0.66-1.25) mg/dL Est GFR (MDRD) Af Amer (>60 ml/min/1.73 sqM) Est GFR (MDRD) Non-Af (>60 ml/min/1.73 sqM) Glucose (74-99) mg/dL Calcium (8.4-10.2) mg/dL Magnesium (1.6-2.3) mg/dL Total Bilirubin (0.2-1.3) mg/dL AST (17-59) U/L ALT (21-72) U/L Alkaline Phosphatase (38-126) U/L Total Creatine Kinase (55-170) U/L CK-MB (CK-2) (0.0-2.4) ng/mL CK-MB (CK-2) Rel Index Troponin I (0.000-0.034) ng/mL NT-Pro-B Natriuret Pep 889 pg/mL Total Protein (6.3-8.2) g/dL Albumin (3.5-5.0) g/dL - Radiology Data Radiology results: report reviewed (Chest x-ray shows increased right-sided pleural effusion with pneumonitis), image reviewed Critical Care Time Critical Care Time: Yes Total Critical Care Time: 31 Disposition Clinical Impression: Pleural effusion, Generalized weakness, Recurrent right pleural effusion, Hypoxia Disposition: ADMITTED IP TO THIS [facility] Condition: Fair Referrals: Altaf Sanchez MD [Primary Care Provider] - 1-2 days
[2017-02-02 18:28] LABS: Basophils % (A) 0 %; CH 33.5; CHCM 32.5; Eosinophils % (A) 1 %; HCT 29.6 % (39.0-53.0); HDW 3.07; HGB 9.5 gm/dL (13.0-17.5); Hypochromasia Slight; Luc # (Auto) 0.16; Luc % (Auto) 3; Lymphocytes # (A) 0.2 k/uL (1.0-4.8); Lymphocytes % (A) 4 %; MCH 33.1 pg (25.0-35.0); MCV 103.3 fL (80.0-100.0); Macrocytosis Slight; Mean Platelet Volume 7.7; Monocytes # (A) 0.5 k/uL (0-1.0); Monocytes % (A) 11 %; Neutrophils # (A) 3.9 k/uL (1.3-7.7); Neutrophils % (A) 81 %; RBC 2.86 m/uL (4.30-5.90); RDW 15.5 % (11.5-15.5); WBC 4.8 k/uL (3.8-10.6); WBC (Perox) 4.86
--- NOTE | 2017-02-02 18:34 | XR ---
EXAMINATION TYPE: XR chest 2V DATE OF EXAM: 02/02/2017 6:26 PM COMPARISON: 01/29/2017 HISTORY: Difficulty breathing TECHNIQUE: Frontal and lateral views of the chest are obtained. FINDINGS: There is opacification of more than 50% of the right hemithorax. Left lung is clear. There is no heart failure. Thoracic aorta is atheromatous. There are chest leads. IMPRESSION: Right lower lobe consolidation and large right pleural effusion is increased compared to last exam. No gross heart failure. T12 vertebroplasty noted.
[2017-02-02 18:36] LABS: ALT 40 U/L (21-72); AST 41 U/L (17-59); Alkaline Phosphatase 114 U/L (38-126); Anion Gap 10 mmol/L; Blood Urea Nitrogen 16 mg/dL (9-20); Calcium 9.3 mg/dL (8.4-10.2); Carbon Dioxide 23 mmol/L (22-30); Chloride 100 mmol/L (98-107); Glucose 105 mg/dL (74-99); Non-African American GFR(MDRD) >60 (>60 ml/min/1.73 sqM); Potassium 4.2 mmol/L (3.5-5.1); Sodium 133 mmol/L (137-145); Total Bilirubin 0.4 mg/dL (0.2-1.3)
[2017-02-02 18:47] LABS: Partial Thromboplastin Time 22.6 sec (22.0-30.0); Prothrombin Time 10.4 sec (9.0-12.0)
[2017-02-02 18:49] LABS: Creatine Kinase 37 U/L (55-170)
[2017-02-02] MEDS ORDERED: IPRATROPIUM-ALBUTEROL 3 ML NEB INHALATION PRN (19:01)
[2017-02-02 19:02] LABS: Creatine Kinase MB 1.8 ng/mL (0.0-2.4); Troponin I <0.012 ng/mL (0.000-0.034)
[2017-02-02 20:52] VITALS: BMI 21.3
[2017-02-02] MEDS: SODIUM CHLORIDE 0.9% 1,000 ML IV SCH (21:03)
[2017-02-02] MEDS ORDERED: LACTULOSE 20 GM/30 ML CUP PO PRN (21:28)
[2017-02-02] MEDS: ACYCLOVIR 200 MG CAP PO SCH (22:23)
[2017-02-02] MEDS: TAMSULOSIN 0.4 MG CAP.ER.24H PO SCH (22:23)
[2017-02-02] MEDS: LORazepam 1 MG TAB PO PRN (22:23)
[2017-02-02] MEDS: ATORVASTATIN 10 MG TAB PO SCH (22:23)
[2017-02-03] MEDS: LEVOTHYROXINE 50 MCG TAB PO SCH (06:06)
--- NOTE | 2017-02-03 08:07 | P.HPIM ---
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 Patient had developed worsening shortness of breath and was hospitalized on 01/27/2017 for 3 days found to have large amount of malignant pleural effusion patient is seen Dr. Flor at [facility] and has been on new type of chemotherapy recently. Patient was hospitalized and had thoracentesis for over 1700 mL of fluid analysis came back positive for malignant cell. Patient had seen pulmonary while he was in the hospital was feeling well and discharge home. Patient was in to see one of my colleagues in our office for follow-up found to be in extreme dyspnea and shortness of breath and found to have more consolidation in the right side of the lung was diagnosed with recurrent large pleural effusion and decided to send patient for chest x-ray and possible arrangement for thoracentesis of an outpatient. Patient declined and become and much worsening shortness of breath and tachypnea tachycardia and restless ended up coming to the emergency department at [facility] where was seen and evaluated his pleural effusion is much larger his hypoxia is worse patient will be hospitalized with consult pulmonary keep him on oxygen and patient will need to go for thoracentesis and furthermore for some sort of valve like pigtail valve catheter to be able to drain the recurrent pleural effusion. Review of Systems Constitutional: Reports anorexia, Reports daytime sleepiness, Reports fatigue, Reports lethargy, Reports poor appetite, Reports weakness, Reports weight loss, Denies as per HPI, Denies chills, Denies chronic headaches, Denies chronic pain , Denies fever, Denies malaise, Denies night sweats, Denies sweats, Denies weight gain Eyes: bilateral as per HPI Ears: bilateral: decreased hearing Ears, nose, mouth and throat: Reports ant. neck pain, Reports nasal congestion, Reports sinus pain, Reports sinus pressure, Denies as per HPI, Denies bleeding gums, Denies dental pain, Denies dysphagia, Denies epistaxis, Denies headache, Denies hoarseness, Denies mouth pain, Denies nasal discharge, Denies neck fullness/pressure, Denies neck lump, Denies nose pain, Denies odynophagia, Denies post-nasal drip, Denies swelling in mouth, Denies swelling in throat, Denies sore throat, Denies vertigo, Denies voice changes Cardiovascular: Reports chest pain, Reports decreased exercise tolerance, Reports edema, Reports high blood pressure, Reports orthopnea, Denies as per HPI , Denies claudication, Denies dyspnea on exertion, Denies irregular heart beat, Denies leg edema, Denies lightheadedness, Denies palpitations, Denies paroxysmal nocturnal dyspnea, Denies phlebitis, Denies rapid heart beat, Denies shortness of breath, Denies syncope Respiratory: Reports congestion, Reports cough, Reports dyspnea, Reports pain on inspiration, Reports pleurisy, Reports wheezing, Denies as per HPI, Denies cough with sputum, Denies excessive sputum, Denies hemoptysis, Denies home oxygen, Denies pain, Denies respiratory infections, Denies sleep apnea, Denies snoring Gastrointestinal: Reports abdominal pain, Reports bloating, Reports dyspepsia, Reports indigestion, Reports loss of appetite, Reports nausea, Denies as per HPI , Denies belching, Denies BRBPR, Denies change in bowel habits, Denies coffee ground emesis, Denies constipation, Denies diarrhea, Denies early satiety, Denies excessive gas, Denies heartburn, Denies hematemesis, Denies hematochezia , Denies jaundice, Denies lactose intolerance, Denies melena, Denies vomiting Genitourinary: Reports urinary frequency, Reports urinary hesitancy, Reports urinary retention, Denies as per HPI, Denies decreased libido, Denies difficulties fathering child, Denies discharge, Denies dysuria, Denies erectile dysfunction, Denies flank pain, Denies genital pain, Denies genital sores, Denies hematuria, Denies impotence, Denies incontinence, Denies kidney stones, Denies nocturia, Denies polyuria, Denies testicular lump, Denies testicular pain Musculoskeletal: Reports arm numbness/tingling, Reports leg numbness/tingling, Reports limitation of motion, Reports loss of height, Reports low back pain, Reports morning stiffness, Reports muscle cramps, Reports muscle weakness, Reports myalgias, Reports neck pain, Reports neck stiffness, Denies as per HPI, Denies atrophy, Denies fractures, Denies frequent falls, Denies gait dysfunction , Denies hot joints, Denies prior amputations, Denies redness of joints, Denies shooting arm pain, Denies shooting leg pain Integumentary: Reports pruritus, Reports rash, Denies as per HPI, Denies acne, Denies boils, Denies brittle nails, Denies change in hair/nails, Denies color changes, Denies darkening of skin, Denies depigmentation, Denies dryness, Denies foot/leg ulcers, Denies growths, Denies hirsutism, Denies lesions, Denies onychomycosis, Denies sores, Denies striae, Denies unusual bruising, Denies wounds Neurological: Reports ataxia, Reports gait dysfunction, Reports headaches, Reports lack of coordination, Reports numbness, Reports paresthesias, Reports spasticity, Denies as per HPI, Denies aphasia, Denies balance difficulties, Denies burning pain, Denies change in mentation, Denies change in smell/taste, Denies change in speech, Denies confusion, Denies convulsions, Denies double vision, Denies head injury, Denies hearing difficulties, Denies loss of vision, Denies memory loss, Denies migraines, Denies motor disturbance, Denies paralysis , Denies seizures, Denies sensory deficit, Denies syncope, Denies tic, Denies tingling, Denies transient paralysis, Denies tremors, Denies vertigo, Denies weakness, Denies visual changes Psychiatric: Reports anhedonia, Reports depression, Denies as per HPI, Denies anxiety, Denies anxiety attacks, Denies change in appetite, Denies change in libido, Denies change in sleep habits, Denies confusion, Denies difficulty concentrating, Denies disorientation, Denies hallucinations, Denies hopelessness , Denies hypersomnia, Denies insomnia, Denies irritability, Denies memory loss, Denies mood swings, Denies paranoia, Denies sadness/tearfulness, Denies sleep disturbances, Denies suicidal ideation Endocrine: Reports cold intolerance, Reports excessive sweating, Denies as per HPI, Denies deepening of the voice, Denies excessive thirst, Denies fatigue, Denies flushing, Denies heat intolerance, Denies high blood sugars, Denies increase in ring/shoe/hat size, Denies low blood sugars, Denies nocturia, Denies palpitations, Denies polydipsia, Denies polyphagia, Denies polyuria, Denies proptosis, Denies recent glucocorticoid use, Denies thyroid mass, Denies weight change Hematologic/Lymphatic: Reports easy bleeding, Denies as per HPI, Denies easy bruising, Denies lymphadenopathy, Denies lymphedema, Denies thrombophilia Allergic/Immunologic: Denies as per HPI, Denies allergic rhinitis, Denies anaphylaxis, Denies angioedema, Denies gluten intolerance, Denies persistent infections, Denies seasonal allergies, Denies urticaria, Denies wheezing Past Medical History Past Medical History: Cancer, GERD/Reflux, Hyperlipidemia, Sleep Apnea/CPAP/ BIPAP, Thyroid Disorder Additional Past Medical History / Comment(s): back fracture t-12, multiple myloma, skin cancer with removals upper back and forehead, hypothyroidism, EEK bilaterally, ELVA with CPAP, unsteady gait with back pain. Multiple Meloma with Plasma Cytomas 2016 Tachycardia due to Myeloma? 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 He is normally independent. he uses a cane He drives. His gait is unsteady with his back pain. 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 Is originally from [place] is moved back here in his detention. His 2 adult children live in [place] they do visit. No one has been ill. He does relate that his had a mild gastroenteritis that she quickly resolved. He believes he started with a gastroenteritis resolved and it came back and has been persistent. The spouse does relate that with his chemotherapy he has certainly had intermittent bouts of diarrhea but this seems to be about the worst that he has had. It is noted he has urinary retention and does straight cath 4 times a day. No experience. No international travel. No tobacco use. No recreational drug use Smoking Status: Never smoker Past Alcohol Use History: Occasional Past Drug Use History: None Reported - Past Family History Mother Family Medical History: No Reported History Additional Family Medical History / Comment(s): Mother was healthy and lived to be 90 yrs old. Father Family Medical History: Cancer Additional Family Medical History / Comment(s): Father of pancreatic cancer at age 76 yrs. Brother(s) Family Medical History: Cancer Additional Family Medical History / Comment(s): stomach CA Medications and Allergies Home Medications Medication Instructions Recorded Confirmed Type Acyclovir 400 mg PO BID 06/28/15 02/02/17 History Levothyroxine Sodium [Synthroid] 50 mcg PO DAILY 06/28/15 02/02/17 History Simvastatin [Zocor] 20 mg PO HS 06/28/15 02/02/17 History Tamsulosin HCl [Flomax] 0.4 mg PO HS 06/28/15 02/02/17 History Ubidecarenone [Co Q-10] 100 mg PO DAILY 06/28/15 02/02/17 History Omeprazole 20 mg PO DAILY 10/17/16 02/02/17 History Prochlorperazine [Compazine] 10 mg PO Q6H PRN 10/17/16 02/02/17 History LORazepam [Ativan] 1 mg PO DAILY PRN 01/27/17 02/02/17 History Multivitamins, Thera [Multivitamin 1 tab PO DAILY 01/27/17 02/02/17 History (formulary)] HYDROcodone/APAP 7.5-325MG [[place] 1 tab PO Q4H PRN 02/02/17 02/02/17 History 7.5-325] Lactulose 10 gm PO DAILY PRN 02/02/17 02/02/17 History Morphine Sulfate ER [Ms Contin 15 mg PO Q12HR PRN 02/02/17 02/02/17 History 15Mg] Allergies Allergy/AdvReac Type Severity Reaction Status Date / Time No Known Allergies Allergy Verified 02/02/17 18:55 Physical Exam Vitals: Vital Signs Temp Pulse Resp BP Pulse Ox 02/02/17 19:39 99.3 F 130 H 20 139/66 97 - Constitutional General appearance: no average body habitus, cooperative, no disheveled, no mild distress, no morbidly obese, no acute distress, no obese, no severe distress, no thin - EENT Eyes: no abnormal pupil, no anicteric sclerae, no disc margins sharp, no edentulous, no EOMI, no PERRLA, no fundus normal, no photophobia, no dentition normal, no poor dentition, no ptosis, no scleral icterus, normal appearance ENT: no hard of hearing, no hearing grossly normal, no NA/AT, normal oropharynx , no other, no pharyngeal erythema, no thrush, no tonsillar exudates, no tonsillar swelling Ears: bilateral: normal - Neck Neck: lymphadenopathy, normal ROM Carotids: bilateral: upstroke normal, upstroke delayed Thyroid: bilateral: normal size - Respiratory Large infiltrate in the chest wall especially in the left side with more granulated tissue most likely multiple myeloma metastasis infiltrate through the chest wall to larger area more in the left than the right side. Respiratory: right: diminished, bilateral: dullness, rales, rhonchi, wheezing - Cardiovascular Rhythm: regular Heart sounds: normal: S1, S2 Abnormal Heart Sounds: systolic murmur - Gastrointestinal General gastrointestinal: no absent bowel sounds, decreased bowel sounds, no distended, hepatomegaly, no hyperactive bowel sounds, no normal bowel sounds, no organomegaly, no rigid, no scaphoid, soft, splenomegaly, no tenderness, no umbilical hernia, no ventral hernia - Integumentary Integumentary: cellulitis, pale - Neurologic Neurologic: CNII-XII intact - Musculoskeletal Musculoskeletal: gait normal, generalized weakness - Psychiatric Psychiatric: A&O x's 3 Results CBC & Chem 7: 02/02/17 18:15 02/02/17 18:15 Thrombosis Risk Factor Assmnt - DVT/VTE Prophylaxis DVT/VTE Prophylaxis: Pharmacologic Prophylaxis ordered, Mechanical Prophylaxis ordered Assessment and Plan Plan: 1 severe dyspnea and shortness of breath secondary to large pleural effusion and malignant metastasis as well. Patient will be hospitalized continue will be seen pulmonary, will consult thoracic surgeon for possible pigtail catheter. 2 recurrent and worsening large pleural effusion patient will be going for thoracentesis and possible pigtail catheter. 3 recurrent not control multiple myeloma with metastasis: Patient seen Dr. Flor at [facility] along with Dr. Moon in [facility]. 4 tachycardia: Patient was on beta ilda and apparently had slight bit controversy with his oncologist he ended up not taking his medication. Was start him on may be calcium channel ilda at this point control his pulse rate below 100 beats per minutes. 5 compression fracture of the L2-L3 has been having increased weakness and symptom in the lower part of his body. 6 hyperlipidemia: On Zocor continue medication. 7 possible lung metastasis with infiltrate mostly from the multiple myeloma in the chest wall and upper part of the lung cavity in the left side. Patient will see and address this with his oncologist. 8 small pericardial effusion: No need for any surgical intervention or drainage currently still mild and cardiology were consulted last time. 9 severe BPH without obstruction lately: Patient has been on Flomax. 10 hypothyroidism: Continue levothyroxine at 50 g daily. 11 severe GERD: Patient has been on omeprazole 20 mg daily. CODE STATUS: Full code. DVT prophylaxis: Patient will be on heparin subcutaneous or Lovenox. Expectation from this admission: Patient be in the hospital for more than 2 nights.
[2017-02-03] MEDS: SODIUM CHLORIDE 0.9% 1,000 ML IV SCH ×2 (08:30→16:11)
[2017-02-03] MEDS: ACYCLOVIR 200 MG CAP PO SCH ×2 (08:33→20:26)
[2017-02-03] MEDS: PANTOPRAZOLE 40 MG TABLET PO SCH (08:33)
[2017-02-03] MEDS: HYDROcodone/APAP 7.5-325MG 1 EACH TAB PO PRN ×2 (08:37→17:38)
[2017-02-03] MEDS ORDERED: NON-FORMULARY DRUG (Ubidecarenone [Co Q-10] 100 MG) PO SCH (09:00)
[2017-02-03] MEDS: MULTIVITAMINS, THERA 1 EACH TAB PO SCH (11:28)
[2017-02-03] MEDS: TRIAMCINOLONE ACET 0.5% CREAM 15 GM TUBE TOPICAL SCH ×2 (11:28→20:25)
[2017-02-03] MEDS: HEPARIN SODIUM,PORCINE 5,000 UNIT/ML 1 ML VIAL SQ SCH ×3 (11:28→23:13)
--- NOTE | 2017-02-03 12:01 | P.CNPUL ---
History of Present Illness Consult date: 02/03/17 Reason for consult: dyspnea, hypoxemia, pleural effusion Chief complaint: Shortness of breath and chest pain History of present illness: This is a 66-year-old male who presented to the emergency department complaining of shortness of breath and hypoxemia. The patient was recently admitted on 01/27/2017 and was found to have malignant right pleural effusion and underwent thoracentesis. The patient has known multiple myeloma. The effusion has recurred in less than 5 days. The patient is agreeable to undergo Pleurx placement. He does follow with oncology [facility]. He denies fevers and chills. He states his oxygen was down to 89% and his primary care physician's office. He does not wear oxygen at baseline. He does have a history of obstructive sleep apnea and wears CPAP nightly. Review of Systems All systems: negative Past Medical History Past Medical History: Cancer, GERD/Reflux, Hyperlipidemia, Sleep Apnea/CPAP/ BIPAP, Thyroid Disorder Additional Past Medical History / Comment(s): back fracture t-12, multiple myloma, skin cancer with removals upper back and forehead, hypothyroidism, YAVAPAI-APACHE bilaterally, ELVA with CPAP, unsteady gait with back pain. Multiple Meloma with Plasma Cytomas 2016 Tachycardia due to Myeloma? 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 He is normally independent. he uses a cane He drives. His gait is unsteady with his back pain. 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 Is originally from [place] is moved back here in his [facility]. His 2 adult children live in [place] they do visit. No one has been ill. He does relate that his had a mild gastroenteritis that she quickly resolved. He believes he started with a gastroenteritis resolved and it came back and has been persistent. The spouse does relate that with his chemotherapy he has certainly had intermittent bouts of diarrhea but this seems to be about the worst that he has had. It is noted he has urinary retention and does straight cath 4 times a day. No experience. No international travel. No tobacco use. No recreational drug use Smoking Status: Never smoker Past Alcohol Use History: Occasional Past Drug Use History: None Reported - Past Family History Mother Family Medical History: No Reported History Additional Family Medical History / Comment(s): Mother was healthy and lived to be 90 yrs old. Father Family Medical History: Cancer Additional Family Medical History / Comment(s): Father of pancreatic cancer at age 76 yrs. Brother(s) Family Medical History: Cancer Additional Family Medical History / Comment(s): stomach CA Medications and Allergies Home Medications Medication Instructions Recorded Confirmed Type Acyclovir 400 mg PO BID 06/28/15 02/02/17 History Levothyroxine Sodium [Synthroid] 50 mcg PO DAILY 06/28/15 02/02/17 History Simvastatin [Zocor] 20 mg PO HS 06/28/15 02/02/17 History Tamsulosin HCl [Flomax] 0.4 mg PO HS 06/28/15 02/02/17 History Ubidecarenone [Co Q-10] 100 mg PO DAILY 06/28/15 02/02/17 History Omeprazole 20 mg PO DAILY 10/17/16 02/02/17 History Prochlorperazine [Compazine] 10 mg PO Q6H PRN 10/17/16 02/02/17 History LORazepam [Ativan] 1 mg PO DAILY PRN 01/27/17 02/02/17 History Multivitamins, Thera [Multivitamin 1 tab PO DAILY 01/27/17 02/02/17 History (formulary)] HYDROcodone/APAP 7.5-325MG [[place] 1 tab PO Q4H PRN 02/02/17 02/02/17 History 7.5-325] Lactulose 10 gm PO DAILY PRN 02/02/17 02/02/17 History Morphine Sulfate ER [Ms Contin 15 mg PO Q12HR PRN 02/02/17 02/02/17 History 15Mg] Allergies Allergy/AdvReac Type Severity Reaction Status Date / Time No Known Allergies Allergy Verified 02/02/17 18:55 Physical Exam Osteopathic Statement: *. No significant issues noted on an osteopathic structural exam other than those noted in the History and Physical/Consult. Vitals: Vital Signs Temp Pulse Pulse Resp BP BP Pulse Ox 02/03/17 08:00 59 L 18 02/03/17 07:00 97.4 F L 59 L 18 113/55 91 L 02/03/17 00:00 132 H 02/02/17 20:45 97.3 F L 132 H 16 138/73 94 L 02/02/17 19:39 99.3 F 130 H 20 139/66 97 Intake and Output 02/02/17 02/03/17 02/03/17 22:59 06:59 14:59 Intake Total 420 Output Total 25 25 Balance 420 -25 -25 Intake: Intake, IV Titration 200 Amount Sodium Chloride 0.9% 1, 200 000 ml @ 100 mls/hr IV . Q10H FADY Rx#:[id number] Oral 220 Output: Urine 25 25 Other: Voiding Method Urinal Urinal # Voids 1 Weight 65.5 kg 65.5 kg Patient Weight 02/04/17 06:59 Weight 65.5 kg Gen.: Patient is alert and oriented 3, no acute distress Cardiovascular: Regular rate and rhythm, S1/S2 Lungs: Diminished breath sounds on the right Abdomen: Soft nontender nondistended positive bowel sounds Extremities: No edema Results - Laboratory Findings CBC and BMP: 02/02/17 18:15 02/02/17 18:15 PT/INR, D-dimer PT 10.4 sec (9.0-12.0) 02/02/17 18:15 INR 1.0 (<1.1) 02/02/17 18:15 D-Dimer 4.24 mg/L FEU (<0.60) H 02/02/17 18:15 - Diagnostic Findings Chest x-ray: report reviewed, image reviewed Assessment and Plan Plan: Moderate to large right pleural effusion, recurrent Status post thoracentesis on 01/29/2017 Hypoxemia Dyspnea Multiple myeloma Obstructive sleep apnea with CPAP Dyslipidemia GERD Hypothyroidism Anemia, macrocytic Hyponatremia O2 to maintain saturation greater than or equal to 88% The benefits of Pleurx catheter versus repeat thoracentesis are discussed with the patient. He is agreeable to undergo Pleurx placement. Thoracic surgery has been consulted - per family, plan for PleurX placement tomorrow CPAP nightly Bronchodilators Pain control Gentle hydration Incentive spirometry and pulmonary hygiene GI and DVT prophylaxis: Heparin, Protonix Thank you for this consultation we'll continue to follow along
--- NOTE | 2017-02-03 12:13 | P.GSCN ---
History of Present Illness Consult date: 02/03/17 Reason for Consult: Recurrent malignant pleural effusion. Requesting physician: Jesus Barrios History of present illness: This 66-year-old male with a history of multiple myeloma plasma cell cytoma diagnosed and 2016 who follows at [facility] for his cancer presented to the ER with increased shortness of breath. Apparently he was recently hospitalized for the same symptoms and diagnostics demonstrated a significant right pleural effusion. Dr. Hartley performed a thoracentesis on 01/29/2017, draining over 2 L of fluid, relieving most of the patient's shortness of breath and he was discharged the next day. Upon checking with the lab, his pleural fluid was positive for few mesothelial cells but no orders were sent for further cytology. He returned to the ER yesterday, 02/02/2017, again with increasing shortness of breath. He denied any chest pain, syncope, or palpitations. His x -ray demonstrated significant right pleural effusion again. Cardiothoracic surgery was consulted for the possible placement of a Pleurx catheter. Review of Systems 14 point review of systems was completed and was negative except as noted. - Cardiovascular Cardiovascular Comment(s): States he has had a rapid heartbeat since October 2016. Reports rapid heart beat - Respiratory Reports as per HPI Past Medical History Past Medical History: Cancer, GERD/Reflux, Hyperlipidemia, Sleep Apnea/CPAP/ BIPAP, Thyroid Disorder Additional Past Medical History / Comment(s): back fracture t-12, multiple myloma, skin cancer with removals upper back and forehead, hypothyroidism, MOAPA bilaterally, ELVA with CPAP, unsteady gait with back pain. Multiple Meloma with Plasma Cytomas 2016 Tachycardia due to Myeloma? 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 He is normally independent. he uses a cane He drives. His gait is unsteady with his back pain. 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 Is originally from [place] is moved back here in his senior living. His 2 adult children live in [place] they do visit. No one has been ill. He does relate that his had a mild gastroenteritis that she quickly resolved. He believes he started with a gastroenteritis resolved and it came back and has been persistent. The spouse does relate that with his chemotherapy he has certainly had intermittent bouts of diarrhea but this seems to be about the worst that he has had. It is noted he has urinary retention and does straight cath 4 times a day. No experience. No international travel. No tobacco use. No recreational drug use Smoking Status: Never smoker Past Alcohol Use History: Occasional Past Drug Use History: None Reported - Past Family History Mother Family Medical History: No Reported History Additional Family Medical History / Comment(s): Mother was healthy and lived to be 90 yrs old. Father Family Medical History: Cancer Additional Family Medical History / Comment(s): Father of pancreatic cancer at age 76 yrs. Brother(s) Family Medical History: Cancer Additional Family Medical History / Comment(s): stomach CA Medications and Allergies Home Medications Medication Instructions Recorded Confirmed Type Acyclovir 400 mg PO BID 06/28/15 02/02/17 History Levothyroxine Sodium [Synthroid] 50 mcg PO DAILY 06/28/15 02/02/17 History Simvastatin [Zocor] 20 mg PO HS 06/28/15 02/02/17 History Tamsulosin HCl [Flomax] 0.4 mg PO 06/28/15 02/02/17 History Ubidecarenone [Co Q-10] 100 mg PO DAILY 06/28/15 02/02/17 History Omeprazole 20 mg PO DAILY 10/17/16 02/02/17 History Prochlorperazine [Compazine] 10 mg PO Q6H PRN 10/17/16 02/02/17 History LORazepam [Ativan] 1 mg PO DAILY PRN 01/27/17 02/02/17 History Multivitamins, Thera [Multivitamin 1 tab PO DAILY 01/27/17 02/02/17 History (formulary)] HYDROcodone/APAP 7.5-325MG [Jasper 1 tab PO Q4H PRN 02/02/17 02/02/17 History 7.5-325] Lactulose 10 gm PO DAILY PRN 02/02/17 02/02/17 History Morphine Sulfate ER [Ms Contin 15 mg PO Q12HR PRN 02/02/17 02/02/17 History 15Mg] Allergies Allergy/AdvReac Type Severity Reaction Status Date / Time No Known Allergies Allergy Verified 02/02/17 18:55 Surgical - Exam Vital Signs Temp Pulse Resp BP Pulse Ox 98.8 F 123 H 26 H 138/60 94 L 02/02/17 17:48 02/02/17 17:48 02/02/17 17:48 02/02/17 17:48 02/02/17 17:48 - General well developed, well nourished, no pain - Eyes PERRL, normal ocular movement - ENT no hearing loss - Neck no masses, trachea midline - Respiratory Lungs sounds very diminished on the right side. Currently on 2 L nasal cannula. normal expansion, normal respiratory effort - Cardiovascular Tachycardic rate, rhythm. Rhythm: regular Heart Sounds: normal: S1, S2 - Abdomen Abdomen: soft, non tender, bowel sounds - Genitourinary Deferred - Rectum Deferred - Integumentary no rash - Neurologic normal coordination, normal sensation - Psychiatric oriented to time, oriented to person, oriented to place, speech is normal, memory intact Results - Labs 02/02/17 18:15 02/02/17 18:15 - Imaging Chest x-ray: image reviewed CT scan - chest: image reviewed Assessment and Plan (1) Recurrent right pleural effusion Status: Acute (2) Multiple myeloma Status: Acute Plan: Patient seen and examined with Dr. Bahena. All diagnostics were reviewed including diagnostics from previous admissions. Per pathology/inpatient lab there are no pending pleural fluid cytology studies. Plan discussed with patient regarding the increased possibility of recurrent effusion in the future with the need for drainage. We offered the patient the placement of a right Pleurx catheter so that the patient may drain at home versus repeated admissions to the hospital for thoracentesis. All risks and benefits were discussed at length with the patient, and he consented to the placement of a Pleurx catheter. The patient will be nothing by mouth after midnight for placement of the catheter tomorrow. Thank you for this consult. We look forward to working with you in the care of your patient. Time with Patient: Greater than 30
--- NOTE | 2017-02-03 13:45 | P.PN ---
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 Patient had developed worsening shortness of breath and was hospitalized on 01/27/2017 for 3 days found to have large amount of malignant pleural effusion patient is seen Dr. Flor at [facility] and has been on new type of chemotherapy recently. Patient was hospitalized and had thoracentesis for over 1700 mL of fluid analysis came back positive for malignant cell. Patient had seen pulmonary while he was in the hospital was feeling well and discharge home. Patient was in to see one of my colleagues in our office for follow-up found to be in extreme dyspnea and shortness of breath and found to have more consolidation in the right side of the lung was diagnosed with recurrent large pleural effusion and decided to send patient for chest x-ray and possible arrangement for thoracentesis of an outpatient. Patient declined and become and much worsening shortness of breath and tachypnea tachycardia and restless ended up coming to the emergency department at [place] where was seen and evaluated his pleural effusion is much larger his hypoxia is worse patient will be hospitalized with consult pulmonary keep him on oxygen and patient will need to go for thoracentesis and furthermore for some sort of valve like pigtail valve catheter to be able to drain the recurrent pleural effusion. 02/03: Patient has been seen by cardiothoracic surgeon with plan for Pleurx catheter which is planned for tomorrow. Patient is also followed by Dr. rolon from pulmonary medicine. Noted patient had heart rate in the 130s during the night and currently at 59. Starting beta ilda is put on hold. IV site is bothering patient due to its location and the and acute. IV fluids changed to saline lock. Patient denies any new complaints. Objective - Vital Signs Vital signs: Vital Signs Temp 97.4 F L 02/03/17 07:00 Pulse 59 L 02/03/17 08:00 Resp 18 02/03/17 08:00 BP 113/55 02/03/17 07:00 Pulse Ox 91 L 02/03/17 07:00 Intake & Output 02/02/17 02/03/17 02/03/17 18:59 06:59 18:59 Intake Total 420 Output Total 25 25 Balance 395 -25 Weight 65.5 kg 65.5 kg Intake: Intake, IV Titration 200 Amount Sodium Chloride 0.9% 1, 200 000 ml @ 100 mls/hr IV . Q10H [facility] Rx#:[id number] Oral 220 Output: Urine 25 25 Other: Voiding Method Urinal Urinal - Exam General appearance: no average body habitus, cooperative, no disheveled, no mild distress, no morbidly obese, no acute distress, no obese, no severe distress, no thin - EENT Eyes: no abnormal pupil, no anicteric sclerae, no disc margins sharp, no edentulous, no EOMI, no PERRLA, no fundus normal, no photophobia, no dentition normal, no poor dentition, no ptosis, no scleral icterus, normal appearance ENT: no hard of hearing, no hearing grossly normal, no NA/AT, normal oropharynx , no other, no pharyngeal erythema, no thrush, no tonsillar exudates, no tonsillar swelling Ears: bilateral: normal - Neck Neck: lymphadenopathy, normal ROM Carotids: bilateral: upstroke normal, upstroke delayed Thyroid: bilateral: normal size - Respiratory Large infiltrate in the chest wall especially in the left side with more granulated tissue most likely multiple myeloma metastasis infiltrate through the chest wall to larger area more in the left than the right side. Respiratory: right: diminished, bilateral: dullness, rales, rhonchi, wheezing - Cardiovascular Rhythm: regular Heart sounds: normal: S1, S2 Abnormal Heart Sounds: systolic murmur - Gastrointestinal General gastrointestinal: no absent bowel sounds, decreased bowel sounds, no distended, hepatomegaly, no hyperactive bowel sounds, no normal bowel sounds, no organomegaly, no rigid, no scaphoid, soft, splenomegaly, no tenderness, no umbilical hernia, no ventral hernia - Integumentary Integumentary: cellulitis, pale - Neurologic Neurologic: CNII-XII intact - Musculoskeletal Musculoskeletal: gait normal, generalized weakness - Psychiatric Psychiatric: A&O x's 3 - Labs CBC & Chem 7: 02/02/17 18:15 02/02/17 18:15 Assessment and Plan Plan: 1 severe dyspnea and shortness of breath secondary to large pleural effusion and malignant metastasis as well. Patient will be hospitalized continue will be seen pulmonary, will consult thoracic surgeon for possible pigtail catheter. 2 recurrent and worsening large pleural effusion patient will be going for thoracentesis and possible pigtail catheter. 3 recurrent not control multiple myeloma with metastasis: Patient seen Dr. Flor at [facility] along with Dr. Moon in [facility]. 4 tachycardia: Patient was on beta ilda and apparently had slight bit controversy with his oncologist he ended up not taking his medication. Was start him on may be calcium channel ilda at this point control his pulse rate below 100 beats per minutes. 5 pathologic compression fracture of the L2-L3 has been having increased weakness and symptom in the lower part of his body. 6 hyperlipidemia: On Zocor continue medication. 7 possible lung metastasis with infiltrate mostly from the multiple myeloma in the chest wall and upper part of the lung cavity in the left side. Patient will see and address this with his oncologist. 8 small pericardial effusion: No need for any surgical intervention or drainage currently still mild and cardiology were consulted last time. 9 severe BPH without obstruction lately: Patient has been on Flomax. 10 hypothyroidism: Continue levothyroxine at 50 g daily. 11 severe GERD: Patient has been on omeprazole 20 mg daily. CODE STATUS: Full code. DVT prophylaxis: Patient will be on heparin subcutaneous or Lovenox. Discharge plan: Return home Impression and plan of care have been directed as dictated by the signing physician. Lakeisha Rodriguez nurse practitioner acting as scribe for signing physician. Time with Patient: Greater than 30
[2017-02-03] MEDS: PROCHLORPERAZINE 10 MG TAB PO PRN (16:49)
[2017-02-03] MEDS: MORPHINE SULFATE ER 15 MG TABLET PO PRN (19:30)
[2017-02-03] MEDS: TAMSULOSIN 0.4 MG CAP.ER.24H PO SCH (20:25)
[2017-02-03] MEDS: LORazepam 1 MG TAB PO PRN (20:25)
[2017-02-03] MEDS: ATORVASTATIN 10 MG TAB PO SCH (20:25)
[2017-02-04] MEDS: LEVOTHYROXINE 50 MCG TAB PO SCH (05:10)
[2017-02-04] MEDS: SODIUM CHLORIDE 0.9% 1,000 ML IV SCH ×3 (05:58→08:33)
[2017-02-04 08:17] LABS: Aty Lym Flag Slight; Basophils % (A) 0 %; CH 32.3; CHCM 30.6; Eosinophils % (A) 1 %; HCT 28.7 % (39.0-53.0); HDW 3.04; HGB 8.9 gm/dL (13.0-17.5); Hypochromasia Moderate; Luc % (Auto) 6; Lymphocytes # (A) 0.3 k/uL (1.0-4.8); Lymphocytes % (A) 8 %; MCH 32.6 pg (25.0-35.0); MCHC 30.8 g/dL (31.0-37.0); MCV 105.7 fL (80.0-100.0); Macrocytosis Moderate; Mean Platelet Volume 7.3; Monocytes # (A) 0.5 k/uL (0-1.0); Monocytes % (A) 15 %; Neutrophils # (A) 2.3 k/uL (1.3-7.7); Neutrophils % (A) 69 %; RBC 2.72 m/uL (4.30-5.90); WBC 3.3 k/uL (3.8-10.6); WBC (Perox) 3.44
[2017-02-04] MEDS: PANTOPRAZOLE 40 MG TABLET PO SCH (08:30)
[2017-02-04] MEDS: HEPARIN SODIUM,PORCINE 5,000 UNIT/ML 1 ML VIAL SQ SCH ×2 (08:31→16:26)
[2017-02-04] MEDS: ACYCLOVIR 200 MG CAP PO SCH ×2 (08:31→20:59)
[2017-02-04] MEDS: TRIAMCINOLONE ACET 0.5% CREAM 15 GM TUBE TOPICAL SCH ×2 (08:32→20:58)
[2017-02-04 08:33] LABS: ALT 32 U/L (21-72); AST 25 U/L (17-59); Alkaline Phosphatase 99 U/L (38-126); Anion Gap 11 mmol/L; Blood Urea Nitrogen 11 mg/dL (9-20); Calcium 8.4 mg/dL (8.4-10.2); Carbon Dioxide 20 mmol/L (22-30); Chloride 109 mmol/L (98-107); Glucose 90 mg/dL (74-99); Non-African American GFR(MDRD) >60 (>60 ml/min/1.73 sqM); Sodium 140 mmol/L (137-145); Total Bilirubin 0.4 mg/dL (0.2-1.3); Total Protein 5.1 g/dL (6.3-8.2)
[2017-02-04] MEDS: MULTIVITAMINS, THERA 1 EACH TAB PO SCH (08:33)
[2017-02-04 10:36] LABS: Manual Review Performed
[2017-02-04 10:40] LABS: Tear Drop Cells Present
[2017-02-04] MEDS ORDERED: IV FLUID CONTINUATION 1,000 ML IV ONE (11:30)
[2017-02-04] MEDS ORDERED: fentaNYL (PF) 50 MCG/ML 2 ML AMP IV ONE (11:39)
[2017-02-04] MEDS ORDERED: LIDOCAINE 1% INJ 10MG/ML (20 ML MDV) ONE (12:29)
[2017-02-04] MEDS ORDERED: fentaNYL (PF) 50 MCG/ML 2 ML AMP ONE (12:29)
[2017-02-04] MEDS ORDERED: PROPOFOL 10 MG/ML 20 ML VIAL IV ONE (12:29)
[2017-02-04] MEDS ORDERED: MIDAZOLAM 2 MG/2 ML VIAL ONE (12:29)
[2017-02-04] MEDS ORDERED: SODIUM CHLORIDE 0.9% 50 ML with ceFAZolin 2,000 MG IV ONE ×2 (12:44)
[2017-02-04] MEDS ORDERED: LIDOCAINE 1% INJ 10MG/ML (10 ML MDV) SQ ONE (12:56)
--- NOTE | 2017-02-04 13:29 | FL ---
EXAMINATION TYPE: FL chest tube insertion DATE OF EXAM: 02/04/2017 1:09 PM COMPARISON: NONE HISTORY: Chest tube placement Fluoroscopy support supplied to the referring clinician. See dictated report from cardiothoracic francesca simeon, single intraoperative C-arm image documents the procedure, 30 seconds fluoroscopy time
--- NOTE | 2017-02-04 14:20 | P.PN ---
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 Patient had developed worsening shortness of breath and was hospitalized on 01/27/2017 for 3 days found to have large amount of malignant pleural effusion patient is seen Dr. Flor at [facility] and has been on new type of chemotherapy recently. Patient was hospitalized and had thoracentesis for over 1700 mL of fluid analysis came back positive for malignant cell. Patient had seen pulmonary while he was in the hospital was feeling well and discharge home. Patient was in to see one of my colleagues in our office for follow-up found to be in extreme dyspnea and shortness of breath and found to have more consolidation in the right side of the lung was diagnosed with recurrent large pleural effusion and decided to send patient for chest x-ray and possible arrangement for thoracentesis of an outpatient. Patient declined and become and much worsening shortness of breath and tachypnea tachycardia and restless ended up coming to the emergency department at [place] where was seen and evaluated his pleural effusion is much larger his hypoxia is worse patient will be hospitalized with consult pulmonary keep him on oxygen and patient will need to go for thoracentesis and furthermore for some sort of valve like pigtail valve catheter to be able to drain the recurrent pleural effusion. 02/03: Patient has been seen by cardiothoracic surgeon with plan for Pleurx catheter which is planned for tomorrow. Patient is also followed by Dr. rolon from pulmonary medicine. Noted patient had heart rate in the 130s during the night and currently at 59. Starting beta ilda is put on hold. IV site is bothering patient due to its location and the and acute. IV fluids changed to saline lock. Patient denies any new complaints. 02/04: Patient is gone for Pleurx catheter placement. Objective - Vital Signs Vital signs: Vital Signs Temp 98.7 F 02/04/17 13:19 Pulse 121 H 02/04/17 14:04 Resp 16 02/04/17 14:04 BP 124/59 02/04/17 14:04 Pulse Ox 98 02/04/17 14:04 Intake & Output 02/03/17 02/04/17 02/04/17 18:59 06:59 18:59 Intake Total 1400 160 420 Output Total 50 25 55 Balance 1350 135 365 Weight 65.5 kg 65.5 kg Intake: IV 160 420 Sodium Chloride 0.9% 1, 160 000 ml @ 20 mls/hr IV . Q24H [facility] Rx#:[id number] Intake, IV Titration 800 Amount Sodium Chloride 0.9% 1, 800 000 ml @ 100 mls/hr IV . Q10H [facility] Rx#:[id number] Oral 600 Output: Urine 50 25 50 Estimated Blood Loss 5 Other: Voiding Method Urinal Urinal Urinal # Voids 2 2 - Exam General appearance: no average body habitus, cooperative, no disheveled, no mild distress, no morbidly obese, no acute distress, no obese, no severe distress, no thin - EENT Eyes: no abnormal pupil, no anicteric sclerae, no disc margins sharp, no edentulous, no EOMI, no PERRLA, no fundus normal, no photophobia, no dentition normal, no poor dentition, no ptosis, no scleral icterus, normal appearance ENT: no hard of hearing, no hearing grossly normal, no NA/AT, normal oropharynx , no other, no pharyngeal erythema, no thrush, no tonsillar exudates, no tonsillar swelling Ears: bilateral: normal - Neck Neck: lymphadenopathy, normal ROM Carotids: bilateral: upstroke normal, upstroke delayed Thyroid: bilateral: normal size - Respiratory Large infiltrate in the chest wall especially in the left side with more granulated tissue most likely multiple myeloma metastasis infiltrate through the chest wall to larger area more in the left than the right side. Respiratory: right: diminished, bilateral: dullness, rales, rhonchi, wheezing - Cardiovascular Rhythm: regular Heart sounds: normal: S1, S2 Abnormal Heart Sounds: systolic murmur - Gastrointestinal General gastrointestinal: no absent bowel sounds, decreased bowel sounds, no distended, hepatomegaly, no hyperactive bowel sounds, no normal bowel sounds, no organomegaly, no rigid, no scaphoid, soft, splenomegaly, no tenderness, no umbilical hernia, no ventral hernia - Integumentary Integumentary: cellulitis, pale - Neurologic Neurologic: CNII-XII intact - Musculoskeletal Musculoskeletal: gait normal, generalized weakness - Psychiatric Psychiatric: A&O x's 3 - Labs CBC & Chem 7: 02/04/17 07:42 02/04/17 07:42 Labs: Abnormal Lab Results - Last 24 Hours (Table) 02/04/17 02/04/17 Range/Units 07:42 07:42 WBC 3.3 L (3.8-10.6) k/uL RBC 2.72 L (4.30-5.90) m/uL Hgb 8.9 L (13.0-17.5) gm/dL Hct 28.7 L (39.0-53.0) % MCV 105.7 H (80.0-100.0) fL MCHC 30.8 L (31.0-37.0) g/dL Plt Count 131 L (150-450) k/uL Lymphocytes # 0.3 L (1.0-4.8) k/uL Chloride 109 H (98-107) mmol/L Carbon Dioxide 20 L (22-30) mmol/L Total Protein 5.1 L (6.3-8.2) g/dL Albumin 2.7 L (3.5-5.0) g/dL Assessment and Plan Plan: 1 severe dyspnea and shortness of breath secondary to large pleural effusion and malignant metastasis as well. Patient will be hospitalized continue will be seen pulmonary, will consult thoracic surgeon for possible pigtail catheter. 2 recurrent and worsening large pleural effusion patient will be going for thoracentesis and possible pigtail catheter. 3 recurrent not control multiple myeloma with metastasis: Patient seen Dr. Flor at [facility] along with [facility]. 4 tachycardia: Patient was on beta ilda and apparently had slight bit controversy with his oncologist he ended up not taking his medication. Was start him on may be calcium channel ilda at this point control his pulse rate below 100 beats per minutes. 5 pathologic compression fracture of the L2-L3 has been having increased weakness and symptom in the lower part of his body. 6 hyperlipidemia: On Zocor continue medication. 7 possible lung metastasis with infiltrate mostly from the multiple myeloma in the chest wall and upper part of the lung cavity in the left side. Patient will see and address this with his oncologist. 8 small pericardial effusion: No need for any surgical intervention or drainage currently still mild and cardiology were consulted last time. 9 severe BPH without obstruction lately: Patient has been on Flomax. 10 hypothyroidism: Continue levothyroxine at 50 g daily. 11 severe GERD: Patient has been on omeprazole 20 mg daily. CODE STATUS: Full code. DVT prophylaxis: Patient will be on heparin subcutaneous or Lovenox. Discharge plan: Return home Impression and plan of care have been directed as dictated by the signing physician. Lakeisha Rodriguez nurse practitioner acting as scribe for signing physician. Time with Patient: Greater than 30
--- NOTE | 2017-02-04 14:43 | XR ---
EXAMINATION TYPE: XR chest 1V portable DATE OF EXAM: 02/04/2017 1:58 PM COMPARISON: Prior chest x-ray 02 February 2017 HISTORY: Pleural catheter placement TECHNIQUE: Single frontal view of the chest is obtained. FINDINGS: There is been interval placement of a right-sided pleural drainage catheter. No other sign ificant interval change. IMPRESSION: No evident complication status post right-sided pleural drainage catheter at the lung ba se level
--- NOTE | 2017-02-04 18:48 | PN ---
DATE OF SERVICE: 02/04/2017 INTERVAL HISTORY: The patient is a 66-year-old male with history of multiple myeloma and malignant right pleural effusion. The patient underwent a thoracentesis last Wednesday and had 2 liters drained from the right pulmonary effusion. The patient did have a recurrence of the pulmonary effusion and has just returned to his room now, from undergoing a Pleurx placement. The patient is awake and alert, afebrile. Prior to having the Pleurx placed, the patient was tachycardic. There are no vital signs currently post procedure; however, the patient is comfortable, alert, oriented, in no acute distress. VITAL SIGNS: Temp is 98.7, heart rate 121, respiratory rate 16, blood pressure is 124/59, O2 sat is 98% on 2 liters O2 via nasal cannula. HEENT: Head is normocephalic, atraumatic. NECK: Supple. Trachea is midline. LUNGS: Sounds are decreased on the right. Left side is clear. HEART: S1 and S2 are heard. Slightly tachycardic, regular. ABDOMEN: Soft. Bowel sounds positive. EXTREMITIES: With no edema. NEUROLOGIC: The patient is awake and alert. LABS: White count is 3.3, hemoglobin is 8.9, hematocrit is 28.7, with 131,000 platelets. Sodium is 140, potassium 4.0 with chloride is 109, CO2 is 20, anion gap is 11, BUN is 11, creatinine 0.89. Glucose is 90. Calcium is 8.4. Total bilirubin is 0.4. AST is 25, ALT is 32, alkaline phosphatase 99. Total protein is 5.1. Albumin is 2.7 IMAGING: Chest x-ray, which was done just prior to the procedure is pending. IMPRESSION: 1. Moderate to large right pleural effusion, recurrent. 2. Recent placement of Pleurx. 3. Status post thoracentesis on 01/29/2017. 4. Hypoxemia. 5. Dyspnea. 6. Multiple myeloma. 7. Obstructive sleep apnea with CPAP. 8. Dyslipidemia. 9. Gastroesophageal reflux disease. 10. Hypothyroidism. 11. Anemia macrocytic. 12. Hyponatremia. PLAN: 1. Continue oxygen to maintain saturations greater than or equal to 88%. 2. Continue Pleurx currently to suction per Thoracic Surgery. 3. CPAP nightly. 4. Bronchodilators. 5. Pain control. 6. Incentive spirometry and pulmonary hygiene. 7. GI and DVT prophylaxis. 8. Will follow the patient closely with you, making further changes as necessary.
[2017-02-04] MEDS: HYDROcodone/APAP 7.5-325MG 1 EACH TAB PO PRN (19:29)
[2017-02-04] MEDS: TAMSULOSIN 0.4 MG CAP.ER.24H PO SCH (20:59)
[2017-02-04] MEDS: ATORVASTATIN 10 MG TAB PO SCH (20:59)
[2017-02-04] MEDS: MORPHINE SULFATE ER 15 MG TABLET PO PRN (22:16)
[2017-02-05] MEDS: HEPARIN SODIUM,PORCINE 5,000 UNIT/ML 1 ML VIAL SQ SCH ×4 (00:05→21:03)
[2017-02-05] MEDS: LEVOTHYROXINE 50 MCG TAB PO SCH (05:39)
[2017-02-05] MEDS: SODIUM CHLORIDE 0.9% 1,000 ML IV SCH ×3 (05:39→17:43)
--- NOTE | 2017-02-05 07:53 | OP ---
DATE OF SERVICE: 02/04/2017 SURGEON: Wilfredo Bahena MD DRIVE TESTER: None. PREOPERATIVE DIAGNOSIS: Recurrent right malignant pleural effusion. POSTOPERATIVE DIAGNOSIS: Recurrent right malignant pleural effusion. OPERATION: Placement of right Pleurx catheter under fluoroscopic guidance. ANESTHESIA: Local anesthetic with IV sedation. ESTIMATED BLOOD LOSS: SPECIMENS REMOVED: Right pleural fluid. COMPLICATIONS: None. INDICATION: The patient is a 66-year-old male who is diagnosed with multiple myeloma, plasma cell cytoma in 2016 and follows at [facility] for his cancer care. He has had drainage of his right pleural effusion performed recently secondary to dyspnea. Per report malignant cells were noted. He returned to the hospital now with recurrence of this fluid. He does report shortness of breath with minimal activity. Placement of a Pleurx catheter was recommended. The risks and benefits and alternatives of this procedure were discussed with the patient. All questions were answered. Consent was obtained. FINDINGS: There was at least 500 mL of bloody fluid drained from right pleural space. PROCEDURE IN DETAIL: The patient was taken to the operating room and placed supine on operating table. The right chest and flank were prepped and draped in the usual sterile fashion. IV sedation was administered. 1% lidocaine without epinephrine was infiltrated in the skin and subcutaneous tissue. A finder angiocatheter was inserted between the ribs space in the right pleural space. Aspiration of free-flowing bloody fluid was noted. Under fluoroscopic guidance a guidewire was introduced in the right pleural space. A counter incision was made. Tunneler was used to position the Pleurx catheter in a subcutaneous location. Using standard Seldinger technique, over the previous placed guidewire, the entry site was progressively dilated under fluoroscopic guidance. Breakaway sheath was eventually placed. The Pleurx catheter was then introduced in the right pleural space without difficulty. Approximately 300 mL of fluid was initially drained and sent to cytology. The catheter was then attached to the atrium with additional drainage ongoing. The catheter was secured to the skin using a suture. The counter incision was closed with a 4-0 Vicryl suture. A sterile dressing was applied. The patient appeared to tolerate the procedure well. There weer no immediate complications. He returned to the recovery room in stable condition.
--- NOTE | 2017-02-05 08:15 | XR ---
EXAMINATION TYPE: XR chest 2V DATE OF EXAM: 02/05/2017 7:22 AM COMPARISON: Prior chest x-ray 2016 HISTORY: Chest tube TECHNIQUE: Frontal and lateral views of the chest are obtained. FINDINGS: Right-sided pleural drainage catheter remains in place. Right-sided pleural effusion persi sts. Opacity within the right hemithorax shows a similar appearance, there is likely associated atele ctasis. Heart is likely stable, left lung well aerated. IMPRESSION: No significant change.
[2017-02-05] MEDS: MORPHINE SULFATE ER 15 MG TABLET PO PRN (08:45)
[2017-02-05] MEDS: ACYCLOVIR 200 MG CAP PO SCH ×2 (08:47→21:02)
[2017-02-05] MEDS: PANTOPRAZOLE 40 MG TABLET PO SCH (08:47)
[2017-02-05] MEDS: TRIAMCINOLONE ACET 0.5% CREAM 15 GM TUBE TOPICAL SCH ×2 (08:50→21:05)
[2017-02-05 09:54] LABS: Basophils % (A) 1 %; CH 32.2; Eosinophils % (A) 1 %; HCT 25.3 % (39.0-53.0); HDW 3.14; HGB 8.1 gm/dL (13.0-17.5); Hypochromasia Moderate; Luc # (Auto) 0.08; Luc % (Auto) 3; Lymphocytes # (A) 0.1 k/uL (1.0-4.8); Lymphocytes % (A) 4 %; MCH 33.2 pg (25.0-35.0); MCHC 31.9 g/dL (31.0-37.0); Macrocytosis Slight; Monocytes # (A) 0.3 k/uL (0-1.0); Monocytes % (A) 10 %; Neutrophils # (A) 2.1 k/uL (1.3-7.7); Neutrophils % (A) 81 %; RBC 2.44 m/uL (4.30-5.90); RDW 14.9 % (11.5-15.5); WBC 2.6 k/uL (3.8-10.6); WBC (Perox) 2.71
[2017-02-05 10:31] LABS: ALT 28 U/L (21-72); AST 23 U/L (17-59); Alkaline Phosphatase 86 U/L (38-126); Anion Gap 10 mmol/L; Blood Urea Nitrogen 12 mg/dL (9-20); Calcium 7.9 mg/dL (8.4-10.2); Carbon Dioxide 21 mmol/L (22-30); Chloride 106 mmol/L (98-107); Glucose 106 mg/dL (74-99); Non-African American GFR(MDRD) >60 (>60 ml/min/1.73 sqM); Potassium 3.6 mmol/L (3.5-5.1); Sodium 137 mmol/L (137-145); Total Bilirubin 0.4 mg/dL (0.2-1.3); Total Protein 4.8 g/dL (6.3-8.2)
--- NOTE | 2017-02-05 11:08 | P.PN ---
Subjective Principal diagnosis: Right pleural effusion Patient seen and examined with his at bedside. The patient states he is feeling groggy today. He believes that the combination of pain medicine as well as not sleeping well at night. He states his breathing is a little bit better but not good. He is hoping to go home soon. Objective - Vital Signs Vital signs: Vital Signs Temp 98.4 F 02/05/17 07:00 Pulse 120 H 02/05/17 07:00 Resp 16 02/05/17 07:00 BP 106/53 02/05/17 07:00 Pulse Ox 97 02/05/17 07:00 Intake & Output 02/04/17 02/05/17 02/05/17 18:59 06:59 18:59 Intake Total 420 220 360 Output Total 105 400 Balance 315 -180 360 Intake: IV 420 Intake, IV Titration 220 Amount Sodium Chloride 0.9% 1, 220 000 ml @ 100 mls/hr IV . Q10H FADY Rx#:[id number] Oral 360 Output: Drainage 100 Right Chest 100 Urine 100 300 Estimated Blood Loss 5 Other: Voiding Method Urinal Urinal Self-Catheterization # Voids 2 1 - Exam Gen.: Patient is alert and oriented 3, no acute distress Cardiovascular: Regular rate and rhythm, S1/S2 Lungs: Diminished breath sounds on the right Abdomen: Soft nontender nondistended positive bowel sounds Extremities: No edema - Labs CBC & Chem 7: 02/05/17 09:19 02/05/17 09:19 Labs: Abnormal Lab Results - Last 24 Hours (Table) 02/05/17 02/05/17 Range/Units 09:19 09:19 WBC 2.6 L (3.8-10.6) k/uL RBC 2.44 L (4.30-5.90) m/uL Hgb 8.1 L (13.0-17.5) gm/dL Hct 25.3 L (39.0-53.0) % MCV 104.0 H (80.0-100.0) fL Plt Count 110 L (150-450) k/uL Lymphocytes # 0.1 L (1.0-4.8) k/uL Carbon Dioxide 21 L (22-30) mmol/L Glucose 106 H (74-99) mg/dL Calcium 7.9 L (8.4-10.2) mg/dL Total Protein 4.8 L (6.3-8.2) g/dL Albumin 2.5 L (3.5-5.0) g/dL Assessment and Plan Plan: Moderate to large right pleural effusion, recurrent Status post thoracentesis on 01/29/2017 Hypoxemia Pancytopenia Dyspnea Multiple myeloma Obstructive sleep apnea with CPAP Dyslipidemia GERD Hypothyroidism Anemia, macrocytic Hyponatremia O2 to maintain saturation greater than or equal to 88% CPAP nightly Bronchodilators Pain control Gentle hydration Incentive spirometry and pulmonary hygiene GI and DVT prophylaxis: Heparin, Protonix Continue pleural fluid drainage Cytology pending
--- NOTE | 2017-02-05 12:34 | P.PN ---
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 Patient had developed worsening shortness of breath and was hospitalized on 01/27/2017 for 3 days found to have large amount of malignant pleural effusion patient is seen Dr. Flor at [facility] and has been on new type of chemotherapy recently. Patient was hospitalized and had thoracentesis for over 1700 mL of fluid analysis came back positive for malignant cell. Patient had seen pulmonary while he was in the hospital was feeling well and discharge home. Patient was in to see one of my colleagues in our office for follow-up found to be in extreme dyspnea and shortness of breath and found to have more consolidation in the right side of the lung was diagnosed with recurrent large pleural effusion and decided to send patient for chest x-ray and possible arrangement for thoracentesis of an outpatient. Patient declined and become and much worsening shortness of breath and tachypnea tachycardia and restless ended up coming to the emergency department at [facility] where was seen and evaluated his pleural effusion is much larger his hypoxia is worse patient will be hospitalized with consult pulmonary keep him on oxygen and patient will need to go for thoracentesis and furthermore for some sort of valve like pigtail valve catheter to be able to drain the recurrent pleural effusion. 02/03: Patient has been seen by cardiothoracic surgeon with plan for Pleurx catheter which is planned for tomorrow. Patient is also followed by Dr. rolon from pulmonary medicine. Noted patient had heart rate in the 130s during the night and currently at 59. Starting beta ilda is put on hold. IV site is bothering patient due to its location and the and acute. IV fluids changed to saline lock. Patient denies any new complaints. 02/04: Patient is gone for Pleurx catheter placement. 02/05: Patient underwent placement of a right Pleurx catheter on 02/[address] Bahena. He is currently hooked to suction with serosanguineous return. Chest x- ray shows no significant change. Patient has been in a sinus tachycardia since his procedure. Metoprolol 25 mg twice daily started and cardiology consult requested. Objective - Vital Signs Vital signs: Vital Signs Temp 99 F 02/04/17 22:44 Pulse 122 H 02/04/17 22:44 Resp 16 02/04/17 22:44 BP 107/55 02/04/17 22:44 Pulse Ox 93 L 02/04/17 22:44 Intake & Output 02/04/17 02/05/17 02/05/17 18:59 06:59 18:59 Intake Total 420 220 Output Total 105 400 Balance 315 -180 Intake: IV 420 Intake, IV Titration 220 Amount Sodium Chloride 0.9% 1, 220 000 ml @ 100 mls/hr IV . Q10H FADY Rx#:[id number] Output: Drainage 100 Right Chest 100 Urine 100 300 Estimated Blood Loss 5 Other: Voiding Method Urinal Urinal Self-Catheterization # Voids 2 1 - Exam General appearance: no average body habitus, cooperative, no disheveled, no mild distress, no morbidly obese, no acute distress, no obese, no severe distress, no thin - EENT Eyes: no abnormal pupil, no anicteric sclerae, no disc margins sharp, no edentulous, no EOMI, no PERRLA, no fundus normal, no photophobia, no dentition normal, no poor dentition, no ptosis, no scleral icterus, normal appearance ENT: no hard of hearing, no hearing grossly normal, no NA/AT, normal oropharynx , no other, no pharyngeal erythema, no thrush, no tonsillar exudates, no tonsillar swelling Ears: bilateral: normal - Neck Neck: lymphadenopathy, normal ROM Carotids: bilateral: upstroke normal, upstroke delayed Thyroid: bilateral: normal size - Respiratory Large infiltrate in the chest wall especially in the left side with more granulated tissue most likely multiple myeloma metastasis infiltrate through the chest wall to larger area more in the left than the right side. Respiratory: right: diminished, bilateral: dullness, rales, rhonchi, wheezing - Cardiovascular Rhythm: regular Heart sounds: normal: S1, S2 Abnormal Heart Sounds: systolic murmur - Gastrointestinal General gastrointestinal: no absent bowel sounds, decreased bowel sounds, no distended, hepatomegaly, no hyperactive bowel sounds, no normal bowel sounds, no organomegaly, no rigid, no scaphoid, soft, splenomegaly, no tenderness, no umbilical hernia, no ventral hernia - Integumentary Integumentary: cellulitis, pale - Neurologic Neurologic: CNII-XII intact - Musculoskeletal Musculoskeletal: gait normal, generalized weakness - Psychiatric Psychiatric: A&O x's 3 - Labs CBC & Chem 7: 02/05/17 09:19 02/05/17 09:19 Labs: Abnormal Lab Results - Last 24 Hours (Table) 02/04/17 02/04/17 Range/Units 07:42 07:42 WBC 3.3 L (3.8-10.6) k/uL RBC 2.72 L (4.30-5.90) m/uL Hgb 8.9 L (13.0-17.5) gm/dL Hct 28.7 L (39.0-53.0) % MCV 105.7 H (80.0-100.0) fL MCHC 30.8 L (31.0-37.0) g/dL Plt Count 131 L (150-450) k/uL Lymphocytes # 0.3 L (1.0-4.8) k/uL Chloride 109 H (98-107) mmol/L Carbon Dioxide 20 L (22-30) mmol/L Total Protein 5.1 L (6.3-8.2) g/dL Albumin 2.7 L (3.5-5.0) g/dL Assessment and Plan Plan: 1 severe dyspnea and shortness of breath secondary to large malignant pleural effusion and malignant metastasis as well. Patient will be hospitalized continue will be seen pulmonary, will consult thoracic surgeon for possible pigtail catheter. 2 recurrent and worsening large pleural effusion patient will be going for thoracentesis and possible pigtail catheter. 3 recurrent not control multiple myeloma with metastasis: Patient seen Dr. Flor at [facility] along with Dr. Moon in [facility]. 4 tachycardia: Patient was on beta ilda and apparently had slight bit controversy with his oncologist he ended up not taking his medication. Patient has been in a sinus tachycardia since procedure. Metoprolol 25 mg twice daily added and cardiology consult requested. 5 pathologic compression fracture of the L2-L3 has been having increased weakness and symptom in the lower part of his body. 6 hyperlipidemia: On Zocor continue medication. 7 possible lung metastasis with infiltrate mostly from the multiple myeloma in the chest wall and upper part of the lung cavity in the left side. Patient will see and address this with his oncologist. 8 small pericardial effusion: No need for any surgical intervention or drainage currently still mild and cardiology were consulted last time. 9 severe BPH without obstruction lately: Patient has been on Flomax. 10 hypothyroidism: Continue levothyroxine at 50 g daily. 11 severe GERD: Patient has been on omeprazole 20 mg daily. CODE STATUS: Full code. DVT prophylaxis: Patient will be on heparin subcutaneous or Lovenox. Discharge plan: Return home and probably 48 hours Impression and plan of care have been directed as dictated by the signing physician. Lakeisha Rodriguez nurse practitioner acting as scribe for signing physician. Time with Patient: Greater than 30
[2017-02-05] MEDS: METOPROLOL TARTRATE 25 MG TAB PO SCH ×2 (12:39→21:03)
[2017-02-05] MEDS: MULTIVITAMINS, THERA 1 EACH TAB PO SCH (12:39)
[2017-02-05] MEDS: HYDROcodone/APAP 7.5-325MG 1 EACH TAB PO PRN ×2 (13:58→19:25)
[2017-02-05] MEDS: TAMSULOSIN 0.4 MG CAP.ER.24H PO SCH (21:03)
[2017-02-05] MEDS: ATORVASTATIN 10 MG TAB PO SCH (21:03)
[2017-02-06] MEDS: SODIUM CHLORIDE 0.9% 1,000 ML IV SCH ×2 (06:08→20:46)
[2017-02-06] MEDS: LEVOTHYROXINE 50 MCG TAB PO SCH (06:08)
[2017-02-06] MEDS: HYDROcodone/APAP 7.5-325MG 1 EACH TAB PO PRN (07:32)
[2017-02-06] MEDS: PANTOPRAZOLE 40 MG TABLET PO SCH (07:33)
[2017-02-06] MEDS: HEPARIN SODIUM,PORCINE 5,000 UNIT/ML 1 ML VIAL SQ SCH ×3 (07:33→20:44)
[2017-02-06] MEDS: ACYCLOVIR 200 MG CAP PO SCH ×2 (07:33→20:43)
[2017-02-06] MEDS: TRIAMCINOLONE ACET 0.5% CREAM 15 GM TUBE TOPICAL SCH ×2 (07:34→20:45)
[2017-02-06] MEDS: METOPROLOL TARTRATE 25 MG TAB PO SCH ×2 (07:40→20:44)
--- NOTE | 2017-02-06 07:40 | XR ---
EXAMINATION TYPE: XR chest 2V DATE OF EXAM: 02/06/2017 6:49 AM COMPARISON: 02/05/2017 INDICATION: Previous abnormal chest. Right pleural effusion. TECHNIQUE: Single frontal view of the chest is obtained. FINDINGS: The heart size is normal. The pulmonary vasculature is normal. Moderate pleural effusion is present on the right which appears stable. There appear to be some metallic wires posterior to the heart which could be old epicardial leads. Th ere may be some prominent small bowel loops within the abdomen. Follow-up abdomen films to be perform ed as clinically indicated. IMPRESSION: 1. Stable appearance of a right pleural fluid collection.
[2017-02-06] MEDS ORDERED: LACTULOSE 20 GM/30 ML CUP PO PRN (09:29)
[2017-02-06] MEDS: MULTIVITAMINS, THERA 1 EACH TAB PO SCH (11:10)
--- NOTE | 2017-02-06 13:46 | P.PN ---
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 Patient had developed worsening shortness of breath and was hospitalized on 01/27/2017 for 3 days found to have large amount of malignant pleural effusion patient is seen Dr. Flor at [facility] and has been on new type of chemotherapy recently. Patient was hospitalized and had thoracentesis for over 1700 mL of fluid analysis came back positive for malignant cell. Patient had seen pulmonary while he was in the hospital was feeling well and discharge home. Patient was in to see one of my colleagues in our office for follow-up found to be in extreme dyspnea and shortness of breath and found to have more consolidation in the right side of the lung was diagnosed with recurrent large pleural effusion and decided to send patient for chest x-ray and possible arrangement for thoracentesis of an outpatient. Patient declined and become and much worsening shortness of breath and tachypnea tachycardia and restless ended up coming to the emergency department at [facility] where was seen and evaluated his pleural effusion is much larger his hypoxia is worse patient will be hospitalized with consult pulmonary keep him on oxygen and patient will need to go for thoracentesis and furthermore for some sort of valve like pigtail valve catheter to be able to drain the recurrent pleural effusion. 02/03: Patient has been seen by cardiothoracic surgeon with plan for Pleurx catheter which is planned for tomorrow. Patient is also followed by Dr. rolon from pulmonary medicine. Noted patient had heart rate in the 130s during the night and currently at 59. Starting beta ilda is put on hold. IV site is bothering patient due to its location and the and acute. IV fluids changed to saline lock. Patient denies any new complaints. 02/04: Patient is gone for Pleurx catheter placement. 02/05: Patient underwent placement of a right Pleurx catheter on 02/[address] Bahena. He is currently hooked to suction with serosanguineous return. Chest x- ray shows no significant change. Patient has been in a sinus tachycardia since his procedure. Metoprolol 25 mg twice daily started and cardiology consult requested. 02/06: Patient is sitting up in bed, is feeling a bit better, he continues to have pain in the right side, he is constipated, he is asking for lactulose. Objective - Vital Signs Vital signs: Vital Signs Temp 98.7 F 02/06/17 07:00 Pulse 114 H 02/06/17 07:00 Resp 18 02/06/17 07:00 BP 102/52 02/06/17 07:00 Pulse Ox 93 L 02/06/17 07:00 Intake & Output 02/05/17 02/06/17 02/06/17 18:59 06:59 18:59 Intake Total 360 1200 Output Total 50 Balance 310 1200 Intake: IV 1200 Sodium Chloride 0.9% 1, 1200 000 ml @ 100 mls/hr IV . Q10H FADY Rx#:[id number] Oral 360 Output: Drainage 50 Right Chest 50 Other: Voiding Method Urinal Urinal Self-Catheterization Self-Catheterization # Voids 1 - Exam - Exam General appearance: no average body habitus, cooperative, no disheveled, no mild distress, no morbidly obese, no acute distress, no obese, no severe distress, no thin - EENT Eyes: no abnormal pupil, no anicteric sclerae, no disc margins sharp, no edentulous, no EOMI, no PERRLA, no fundus normal, no photophobia, no dentition normal, no poor dentition, no ptosis, no scleral icterus, normal appearance ENT: no hard of hearing, no hearing grossly normal, no NA/AT, normal oropharynx , no other, no pharyngeal erythema, no thrush, no tonsillar exudates, no tonsillar swelling Ears: bilateral: normal - Neck Neck: lymphadenopathy, normal ROM Carotids: bilateral: upstroke normal, upstroke delayed Thyroid: bilateral: normal size - Respiratory Large infiltrate in the chest wall especially in the left side with more granulated tissue most likely multiple myeloma metastasis infiltrate through the chest wall to larger area more in the left than the right side. Respiratory: right: diminished, bilateral: dullness, rales, rhonchi, wheezing - Cardiovascular Rhythm: regular Heart sounds: normal: S1, S2 Abnormal Heart Sounds: systolic murmur - Gastrointestinal General gastrointestinal: no absent bowel sounds, decreased bowel sounds, no distended, hepatomegaly, no hyperactive bowel sounds, no normal bowel sounds, no organomegaly, no rigid, no scaphoid, soft, splenomegaly, no tenderness, no umbilical hernia, no ventral hernia - Integumentary Integumentary: cellulitis, pale - Neurologic Neurologic: CNII-XII intact - Musculoskeletal Musculoskeletal: gait normal, generalized weakness - Psychiatric Psychiatric: A&O x's 3 - Labs CBC & Chem 7: 02/05/17 09:19 02/05/17 09:19 Labs: Abnormal Lab Results - Last 24 Hours (Table) 02/05/17 02/05/17 Range/Units 09:19 09:19 WBC 2.6 L (3.8-10.6) k/uL RBC 2.44 L (4.30-5.90) m/uL Hgb 8.1 L (13.0-17.5) gm/dL Hct 25.3 L (39.0-53.0) % MCV 104.0 H (80.0-100.0) fL Plt Count 110 L (150-450) k/uL Lymphocytes # 0.1 L (1.0-4.8) k/uL Carbon Dioxide 21 L (22-30) mmol/L Glucose 106 H (74-99) mg/dL Calcium 7.9 L (8.4-10.2) mg/dL Total Protein 4.8 L (6.3-8.2) g/dL Albumin 2.5 L (3.5-5.0) g/dL Assessment and Plan Plan: Assessment and Plan Plan: 1 severe dyspnea and shortness of breath secondary to large malignant pleural effusion and malignant metastasis as well. Patient will be hospitalized continue will be seen pulmonary, will consult thoracic surgeon for possible pigtail catheter. 2 recurrent and worsening large pleural effusion patient will be going for thoracentesis and possible pigtail catheter. 3 recurrent not control multiple myeloma with metastasis: Patient seen Dr. Flor at [facility] along [facility] 4 tachycardia: Patient was on beta ilda and apparently had slight bit controversy with his oncologist he ended up not taking his medication. Patient has been in a sinus tachycardia since procedure. Metoprolol 25 mg twice daily added and cardiology consult requested. 5 pathologic compression fracture of the L2-L3 has been having increased weakness and symptom in the lower part of his body. 6 hyperlipidemia: On Zocor continue medication. 7 possible lung metastasis with infiltrate mostly from the multiple myeloma in the chest wall and upper part of the lung cavity in the left side. Patient will see and address this with his oncologist. 8 small pericardial effusion: No need for any surgical intervention or drainage currently still mild and cardiology were consulted last time. 9 severe BPH without obstruction lately: Patient has been on Flomax. 10 hypothyroidism: Continue levothyroxine at 50 g daily. 11 severe GERD: Patient has been on omeprazole 20 mg daily. CODE STATUS: Full code. DVT prophylaxis: Patient will be on heparin subcutaneous or Lovenox.
--- NOTE | 2017-02-06 15:18 | PN ---
DATE OF SERVICE: 02/06/2017 Patient has remained hemodynamically stable. He complains of mild shortness of breath. He has chest pain on the right side. On physical examination, blood pressure 102/52, respiratory rate 18, pulse rate of 114, temperature 98.7. O2 sat on room air is 93%. HEENT is unremarkable. Chest reveals decreased breath sounds in the right base, a Pleurx catheter in place underneath surgical dressing. Cardiovascular systems reveals an S1 and S2. Distant heart sounds. No S3, no S4, no murmurs. Abdomen is soft. There is no pedal edema. IMPRESSION: 1. Recurrent pleural effusion, status post right Pleurx catheter placement. 2. Tachycardia that is multifactorial. Recent echocardiogram on 01/28/2017 showed normal pericardium. 3. Plasma cytoma. At this point in time, from a pulmonary standpoint, continue drainage of the right pleural space with Pleurx catheter. Will educate the patient and his family on how to do this at home and consider discharge planning once that education is done. Will await final thoracic surgery recommendations as well.
[2017-02-06] MEDS: PROCHLORPERAZINE 10 MG TAB PO PRN (19:32)
[2017-02-06] MEDS: ATORVASTATIN 10 MG TAB PO SCH (20:44)
[2017-02-06] MEDS: TAMSULOSIN 0.4 MG CAP.ER.24H PO SCH (20:44)
[2017-02-07] MEDS: SODIUM CHLORIDE 0.9% 1,000 ML IV SCH ×2 (01:13→07:29)
[2017-02-07] MEDS: LEVOTHYROXINE 50 MCG TAB PO SCH (06:26)
[2017-02-07] MEDS: HYDROcodone/APAP 7.5-325MG 1 EACH TAB PO PRN ×2 (07:27→13:16)
[2017-02-07] MEDS: ACYCLOVIR 200 MG CAP PO SCH ×2 (07:28→20:39)
[2017-02-07] MEDS: METOPROLOL TARTRATE 25 MG TAB PO SCH ×2 (07:28→20:39)
[2017-02-07] MEDS: PANTOPRAZOLE 40 MG TABLET PO SCH (07:28)
[2017-02-07] MEDS: HEPARIN SODIUM,PORCINE 5,000 UNIT/ML 1 ML VIAL SQ SCH ×3 (07:28→20:39)
[2017-02-07] MEDS: TRIAMCINOLONE ACET 0.5% CREAM 15 GM TUBE TOPICAL SCH ×2 (07:29→20:39)
[2017-02-07 07:54] LABS: ALT 33 U/L (21-72); AST 31 U/L (17-59); Alkaline Phosphatase 92 U/L (38-126); Anion Gap 6 mmol/L; Blood Urea Nitrogen 11 mg/dL (9-20); Calcium 7.8 mg/dL (8.4-10.2); Carbon Dioxide 22 mmol/L (22-30); Chloride 110 mmol/L (98-107); Glucose 97 mg/dL (74-99); Non-African American GFR(MDRD) >60 (>60 ml/min/1.73 sqM); Potassium 3.7 mmol/L (3.5-5.1); Sodium 138 mmol/L (137-145); Total Bilirubin 0.4 mg/dL (0.2-1.3); Total Protein 4.7 g/dL (6.3-8.2)
--- NOTE | 2017-02-07 08:39 | XR ---
EXAMINATION TYPE: XR chest 2V DATE OF EXAM: 02/07/2017 6:36 AM COMPARISON: 02/06/2017 INDICATION: Pleural effusion TECHNIQUE: Single frontal view of the chest is obtained. FINDINGS: The heart size is normal. The pulmonary vasculature is normal. There is opacity through the right lung. EKG leads overlie the chest. Pleural catheter is reportedly present may be at the right costophrenic angle is poorly delineated with the overlying EKG leads. No pneumothorax is evident. IMPRESSION: 1. Right pleural effusion and infiltrate.
[2017-02-07 08:50] LABS: Basophils % (A) 0 %; CH 32.3; CHCM 31.2; Eosinophils % (A) 1 %; HCT 24.4 % (39.0-53.0); HDW 3.16; HGB 7.8 gm/dL (13.0-17.5); Hypochromasia Moderate; Luc # (Auto) 0.08; Luc % (Auto) 3; Lymphocytes # (A) 0.2 k/uL (1.0-4.8); Lymphocytes % (A) 6 %; MCH 33.2 pg (25.0-35.0); MCHC 32.1 g/dL (31.0-37.0); MCV 103.6 fL (80.0-100.0); Macrocytosis Slight; Mean Platelet Volume 8.3; Monocytes # (A) 0.2 k/uL (0-1.0); Monocytes % (A) 8 %; Neutrophils # (A) 2.3 k/uL (1.3-7.7); Neutrophils % (A) 83 %; RBC 2.35 m/uL (4.30-5.90); WBC 2.7 k/uL (3.8-10.6); WBC (Perox) 2.68
--- NOTE | 2017-02-07 09:47 | P.PN ---
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 Patient had developed worsening shortness of breath and was hospitalized on 01/27/2017 for 3 days found to have large amount of malignant pleural effusion patient is seen Dr. Flor at [facility] and has been on new type of chemotherapy recently. Patient was hospitalized and had thoracentesis for over 1700 mL of fluid analysis came back positive for malignant cell. Patient had seen pulmonary while he was in the hospital was feeling well and discharge home. Patient was in to see one of my colleagues in our office for follow-up found to be in extreme dyspnea and shortness of breath and found to have more consolidation in the right side of the lung was diagnosed with recurrent large pleural effusion and decided to send patient for chest x-ray and possible arrangement for thoracentesis of an outpatient. Patient declined and become and much worsening shortness of breath and tachypnea tachycardia and restless ended up coming to the emergency department at [place] where was seen and evaluated his pleural effusion is much larger his hypoxia is worse patient will be hospitalized with consult pulmonary keep him on oxygen and patient will need to go for thoracentesis and furthermore for some sort of valve like pigtail valve catheter to be able to drain the recurrent pleural effusion. 02/03: Patient has been seen by cardiothoracic surgeon with plan for Pleurx catheter which is planned for tomorrow. Patient is also followed by Dr. rolon from pulmonary medicine. Noted patient had heart rate in the 130s during the night and currently at 59. Starting beta ilda is put on hold. IV site is bothering patient due to its location and the and acute. IV fluids changed to saline lock. Patient denies any new complaints. 02/04: Patient is gone for Pleurx catheter placement. 02/05: Patient underwent placement of a right Pleurx catheter on 02/[address] Bahena. He is currently hooked to suction with serosanguineous return. Chest x- ray shows no significant change. Patient has been in a sinus tachycardia since his procedure. Metoprolol 25 mg twice daily started and cardiology consult requested. 02/06: Patient is sitting up in bed, is feeling a bit better, he continues to have pain in the right side, he is constipated, he is asking for lactulose. 02/07: increased swelling in the right upper extremity,with pain in the left shoulder/neck will arrange for Venous duplex of the upper extremity. Objective - Vital Signs Vital signs: Vital Signs Temp 99.2 F 02/07/17 07:00 Pulse 114 H 02/07/17 07:00 Resp 18 02/07/17 07:00 BP 108/55 02/07/17 07:00 Pulse Ox 94 L 02/07/17 07:00 Intake & Output 02/06/17 02/07/17 02/07/17 18:59 06:59 18:59 Intake Total 800 1980 Output Total 950 200 Balance 800 1030 -200 Intake: IV 800 800 Sodium Chloride 0.9% 1, 800 800 000 ml @ 100 mls/hr IV . Q10H FADY Rx#:[id number] Oral 1180 Output: Urine 950 200 Other: Voiding Method Urinal Urinal Self-Catheterization Self-Catheterization # Bowel Movements 1 - Exam - Exam General appearance: no average body habitus, cooperative, no disheveled, no mild distress, no morbidly obese, no acute distress, no obese, no severe distress, no thin - EENT Eyes: no abnormal pupil, no anicteric sclerae, no disc margins sharp, no edentulous, no EOMI, no PERRLA, no fundus normal, no photophobia, no dentition normal, no poor dentition, no ptosis, no scleral icterus, normal appearance ENT: no hard of hearing, no hearing grossly normal, no NA/AT, normal oropharynx , no other, no pharyngeal erythema, no thrush, no tonsillar exudates, no tonsillar swelling Ears: bilateral: normal - Neck Neck: lymphadenopathy, normal ROM Carotids: bilateral: upstroke normal, upstroke delayed Thyroid: bilateral: normal size - Respiratory Large infiltrate in the chest wall especially in the left side with more granulated tissue most likely multiple myeloma metastasis infiltrate through the chest wall to larger area more in the left than the right side. Respiratory: right: diminished, bilateral: dullness, rales, rhonchi, wheezing - Cardiovascular Rhythm: regular Heart sounds: normal: S1, S2 Abnormal Heart Sounds: systolic murmur - Gastrointestinal General gastrointestinal: no absent bowel sounds, decreased bowel sounds, no distended, hepatomegaly, no hyperactive bowel sounds, no normal bowel sounds, no organomegaly, no rigid, no scaphoid, soft, splenomegaly, no tenderness, no umbilical hernia, no ventral hernia - Integumentary Integumentary: cellulitis, pale - Neurologic Neurologic: CNII-XII intact - Musculoskeletal Musculoskeletal: gait normal, generalized weakness - Psychiatric Psychiatric: A&O x's 3 - Labs CBC & Chem 7: 02/07/17 07:12 02/07/17 07:12 Labs: Abnormal Lab Results - Last 24 Hours (Table) 02/07/17 02/07/17 Range/Units 07:12 07:12 WBC 2.7 L (3.8-10.6) k/uL RBC 2.35 L (4.30-5.90) m/uL Hgb 7.8 L (13.0-17.5) gm/dL Hct 24.4 L (39.0-53.0) % MCV 103.6 H (80.0-100.0) fL Plt Count 111 L (150-450) k/uL Lymphocytes # 0.2 L (1.0-4.8) k/uL Chloride 110 H (98-107) mmol/L Calcium 7.8 L (8.4-10.2) mg/dL Total Protein 4.7 L (6.3-8.2) g/dL Albumin 2.5 L (3.5-5.0) g/dL Assessment and Plan Plan: Assessment and Plan Plan: 1 severe dyspnea and shortness of breath secondary to large malignant pleural effusion and malignant metastasis as well. Patient will be hospitalized continue will be seen pulmonary, will consult thoracic surgeon for possible pigtail catheter. 2 recurrent and worsening large pleural effusion patient will be going for thoracentesis and possible pigtail catheter. 3 recurrent not control multiple myeloma with metastasis: Patient seen Dr. Flor at [facility] along with Dr. Moon in [facility]. 4 tachycardia: Patient was on beta ilda and apparently had slight bit controversy with his oncologist he ended up not taking his medication. Patient has been in a sinus tachycardia since procedure. Metoprolol 25 mg twice daily added and cardiology consult requested. 5 pathologic compression fracture of the L2-L3 has been having increased weakness and symptom in the lower part of his body. 6 hyperlipidemia: On Zocor continue medication. 7 possible lung metastasis with infiltrate mostly from the multiple myeloma in the chest wall and upper part of the lung cavity in the left side. Patient will see and address this with his oncologist. 8 small pericardial effusion: No need for any surgical intervention or drainage currently still mild and cardiology were consulted last time. 9 severe BPH without obstruction lately: Patient has been on Flomax. 10 hypothyroidism: Continue levothyroxine at 50 g daily. 11 severe GERD: Patient has been on omeprazole 20 mg daily. CODE STATUS: Full code. DVT prophylaxis: Patient will be on heparin subcutaneous or Lovenox. 12. Right upper extremity swelling and pain will arrange for Duplex of the right upper extremity. 13. Hopefully home in AM.
--- NOTE | 2017-02-07 11:25 | US ---
EXAMINATION TYPE: US venous doppler duplex UE RT DATE OF EXAM: 02/07/2017 11:10 AM COMPARISON: NONE CLINICAL HISTORY: swelling and pain. Edema right arm, recent IV right antecubital fossa that was maricel kaitlin yesterday SIDE PERFORMED: right Right Arm: No evidence of DVT as visualized. Superficial non-occlusive thrombus noted within a branch of Cephalic vein at antecubital fossa IMPRESSION: 1. No ultrasound evidence of deep venous thrombosis right upper extremity. 2. Superficial thrombus within the cephalic vein is present without complete obstruction.
[2017-02-07] MEDS: MULTIVITAMINS, THERA 1 EACH TAB PO SCH (13:16)
--- NOTE | 2017-02-07 14:09 | PN ---
DATE OF SERVICE: 02/06/2017 He continues to have some right-sided chest pain as well as shortness of breath. His Pleurx catheter was not drained by thoracic surgery yesterday. Plan is for possible drainage tomorrow. Patient also needs to be educated on the use of his catheter. He denied any fever or chills. On physical examination, vitals are stable. He is afebrile. His chest reveals decreased breath sounds in the right hemithorax. Cardiovascular system reveals an S1, S2. No S3, no S4. No murmurs. Abdomen is soft. There is no pedal edema. Chest x-ray shows persistent right pleural effusion.
[2017-02-07] MEDS ORDERED: BACLOFEN 10 MG TAB PO PRN (14:45)
[2017-02-07] MEDS: TAMSULOSIN 0.4 MG CAP.ER.24H PO SCH (20:39)
[2017-02-07] MEDS: ATORVASTATIN 10 MG TAB PO SCH (20:39)
[2017-02-08] MEDS: LEVOTHYROXINE 50 MCG TAB PO SCH (06:13)
--- NOTE | 2017-02-08 07:25 | P.PN ---
Progress Note - Text Pleurx catheter drained for 650 mL of thin serosanguineous colored drainage. Patient tolerated well denies complaints of pain. Pleurx dressing changed and new Placed.
[2017-02-08 07:49] VITALS: BP 111/58; RESP 18; TEMP 98.9
[2017-02-08 08:01] LABS: Basophils % (A) 0 %; CH 32.2; CHCM 30.5; Eosinophils % (A) 1 %; HCT 25.9 % (39.0-53.0); HDW 3.03; HGB 7.8 gm/dL (13.0-17.5); Hypochromasia Moderate; Luc # (Auto) 0.05; Luc % (Auto) 2; Lymphocytes # (A) 0.2 k/uL (1.0-4.8); Lymphocytes % (A) 6 %; MCHC 30.2 g/dL (31.0-37.0); MCV 105.9 fL (80.0-100.0); Macrocytosis Moderate; Mean Platelet Volume 7.7; Monocytes # (A) 0.1 k/uL (0-1.0); Monocytes % (A) 5 %; Neutrophils # (A) 2.3 k/uL (1.3-7.7); Neutrophils % (A) 87 %; RBC 2.45 m/uL (4.30-5.90); RDW 15.4 % (11.5-15.5); WBC 2.6 k/uL (3.8-10.6)
[2017-02-08 08:17] LABS: ALT 29 U/L (21-72); AST 38 U/L (17-59); Alkaline Phosphatase 101 U/L (38-126); Anion Gap 9 mmol/L; Blood Urea Nitrogen 11 mg/dL (9-20); Calcium 8.3 mg/dL (8.4-10.2); Carbon Dioxide 20 mmol/L (22-30); Chloride 110 mmol/L (98-107); Glucose 94 mg/dL (74-99); Non-African American GFR(MDRD) >60 (>60 ml/min/1.73 sqM); Potassium 3.7 mmol/L (3.5-5.1); Sodium 139 mmol/L (137-145); Total Bilirubin 0.4 mg/dL (0.2-1.3); Total Protein 4.9 g/dL (6.3-8.2)
[2017-02-08] MEDS: TRIAMCINOLONE ACET 0.5% CREAM 15 GM TUBE TOPICAL SCH (08:38)
[2017-02-08] MEDS: ACYCLOVIR 200 MG CAP PO SCH (08:39)
[2017-02-08] MEDS: METOPROLOL TARTRATE 25 MG TAB PO SCH (08:39)
[2017-02-08] MEDS: PANTOPRAZOLE 40 MG TABLET PO SCH (08:39)
[2017-02-08] MEDS: HEPARIN SODIUM,PORCINE 5,000 UNIT/ML 1 ML VIAL SQ SCH (08:39)
--- NOTE | 2017-02-08 08:49 | XR ---
EXAMINATION TYPE: XR chest 2V DATE OF EXAM: 02/08/2017 7:08 AM COMPARISON: 02/07/2017 TECHNIQUE: PA and lateral views submitted. HISTORY: Pleural catheter placement FINDINGS: Tiny left effusion seen with a moderate-sized right effusion and consolidation. Arthropathy of the sh oulders noted. Heart size stable. Atherosclerotic change aorta. On the lateral view there appears to be a catheter overlying the lower lung field. Compression deformity no evidence of previous vertebrop lasty noted involving the thoracolumbar junction and there is degenerative change of the spine. IMPRESSION: 1. Pleural-parenchymal changes are stable.
[2017-02-08] MEDS: HYDROcodone/APAP 7.5-325MG 1 EACH TAB PO PRN (10:19)
--- NOTE | 2017-02-08 10:55 | P.PN ---
Subjective Principal diagnosis: Right pleural effusion Patient seen and examined. Patient states his breathing feels better today. Thoracic surgery drained his Pleurx catheter. Chest x-ray was obtained after and shows improvement in pleural fluid. The patient states he has been up walking in the hallways over the weekend. He states he is eating but says "the food isn't that good." Objective - Vital Signs Vital signs: Vital Signs Temp 98.9 F 02/08/17 07:00 Pulse 111 H 02/08/17 07:00 Resp 18 02/08/17 07:00 BP 111/58 02/08/17 07:00 Pulse Ox 92 L 02/08/17 07:00 Intake & Output 02/07/17 02/08/17 02/08/17 18:59 06:59 18:59 Intake Total 590 Output Total 200 200 Balance -200 390 Intake: Oral 590 Output: Urine 200 200 Other: Voiding Method Urinal Urinal Self-Catheterization Self-Catheterization # Voids 1 1 # Bowel Movements 1 1 - Exam Gen.: Patient is alert and oriented 3, no acute distress Cardiovascular: Regular rate and rhythm, S1/S2 Lungs: Diminished breath sounds on the right Abdomen: Soft nontender nondistended positive bowel sounds Extremities: Right upper extremity edema - Labs CBC & Chem 7: 02/08/17 07:26 02/08/17 07:26 Labs: Abnormal Lab Results - Last 24 Hours (Table) 02/08/17 02/08/17 Range/Units 07:26 07:26 WBC 2.6 L (3.8-10.6) k/uL RBC 2.45 L (4.30-5.90) m/uL Hgb 7.8 L (13.0-17.5) gm/dL Hct 25.9 L (39.0-53.0) % MCV 105.9 H (80.0-100.0) fL MCHC 30.2 L (31.0-37.0) g/dL Plt Count 110 L (150-450) k/uL Lymphocytes # 0.2 L (1.0-4.8) k/uL Chloride 110 H (98-107) mmol/L Carbon Dioxide 20 L (22-30) mmol/L Calcium 8.3 L (8.4-10.2) mg/dL Total Protein 4.9 L (6.3-8.2) g/dL Albumin 2.5 L (3.5-5.0) g/dL Assessment and Plan Plan: Moderate to large right pleural effusion, recurrent Status post thoracentesis on 01/29/2017 Status post pleurX placement Hypoxemia, improving Pancytopenia Dyspnea Multiple myeloma Obstructive sleep apnea with CPAP Dyslipidemia GERD Hypothyroidism Anemia, macrocytic Hyponatremia O2 to maintain saturation greater than or equal to 88% CPAP nightly Pain control Incentive spirometry and pulmonary hygiene GI and DVT prophylaxis: Heparin, Protonix Intermittent PleurX drainage Cytology pending Ok to DC from pulmonary standpoint
[2017-02-08 12:09] VITALS: PULSE 97
[2017-02-08] MEDS: MULTIVITAMINS, THERA 1 EACH TAB PO SCH (12:58)
--- NOTE | 2017-02-09 14:48 | P.DS ---
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 Patient had developed worsening shortness of breath and was hospitalized on 01/27/2017 for 3 days found to have large amount of malignant pleural effusion patient is seen Dr. Flor at [facility] and has been on new type of chemotherapy recently. Patient was hospitalized and had thoracentesis for over 1700 mL of fluid analysis came back positive for malignant cell. Patient had seen pulmonary while he was in the hospital was feeling well and discharge home. Patient was in to see one of my colleagues in our office for follow-up found to be in extreme dyspnea and shortness of breath and found to have more consolidation in the right side of the lung was diagnosed with recurrent large pleural effusion and decided to send patient for chest x-ray and possible arrangement for thoracentesis of an outpatient. Patient declined and become and much worsening shortness of breath and tachypnea tachycardia and restless ended up coming to the emergency department at [place] where was seen and evaluated his pleural effusion is much larger his hypoxia is worse patient will be hospitalized with consult pulmonary keep him on oxygen and patient will need to go for thoracentesis and furthermore for some sort of valve like pigtail valve catheter to be able to drain the recurrent pleural effusion. 02/03: Patient has been seen by cardiothoracic surgeon with plan for Pleurx catheter which is planned for tomorrow. Patient is also followed by Dr. rolon from pulmonary medicine. Noted patient had heart rate in the 130s during the night and currently at 59. Starting beta ilda is put on hold. IV site is bothering patient due to its location and the and acute. IV fluids changed to saline lock. Patient denies any new complaints. 02/04: Patient is gone for Pleurx catheter placement. 02/05: Patient underwent placement of a right Pleurx catheter on 02/[address] Bahena. He is currently hooked to suction with serosanguineous return. Chest x- ray shows no significant change. Patient has been in a sinus tachycardia since his procedure. Metoprolol 25 mg twice daily started and cardiology consult requested. 02/06: Patient is sitting up in bed, is feeling a bit better, he continues to have pain in the right side, he is constipated, he is asking for lactulose. 02/07: increased swelling in the right upper extremity,with pain in the left shoulder/neck will arrange for Venous duplex of the upper extremity. 02/08: Ultrasound of the right upper extremity is negative for DVT but there is superficial thrombus. Repeat chest x-ray shows pleural parenchymal changes stable. Patient has been cleared for discharge bipolar medicine and cardiothoracic surgeon. Patient is being discharged with Pleurx in place. Cytology report of right pleural fluid shows atypical plasma cell population consistent with myeloma. Discharge Diagnoses: 1 severe dyspnea and shortness of breath secondary to large malignant pleural effusion and malignant metastasis as well. 2 recurrent and worsening large pleural effusion 3 recurrent not control multiple myeloma with metastasis 4 sinus tachycardia 5 pathologic compression fracture of the L2-L3 6 hyperlipidemia 7 possible lung metastasis with infiltrate mostly from the multiple myeloma in the chest wall and upper part of the lung cavity in the left side. 8 small pericardial effusion 9 severe BPH 10 hypothyroidism 11 severe GERD 12. Right upper extremity swelling without DVT Impression and plan of care have been directed as dictated by the signing physician. Lakeisha Rodriguez nurse practitioner acting as scribe for signing physician. Patient Condition at Discharge: Good Plan - Discharge Summary New Discharge Prescriptions: Baclofen [Lioresal] 10 mg PO BID PRN #60 tab PRN Reason: Muscle Spasm Ipratropium-Albuterol Nebulize [Duoneb 0.5 mg-3 mg/3 ml Soln] 3 ml INHALATION RT -QID PRN #120 ampul.neb PRN Reason: Shortness Of Breath Or Wheezing Metoprolol Tartrate [Lopressor] 25 mg PO BID #60 tab Triamcinolone 0.5% Cream [Kenalog 0.5% Cream] 1 applic TOPICAL BID #30 gm Discharge Medication List Acyclovir 400 mg PO BID 06/28/15 [History] Levothyroxine Sodium [Synthroid] 50 mcg PO DAILY 06/28/15 [History] Simvastatin [Zocor] 20 mg PO HS 06/28/15 [History] Tamsulosin HCl [Flomax] 0.4 mg PO HS 06/28/15 [History] Ubidecarenone [Co Q-10] 100 mg PO DAILY 06/28/15 [History] Omeprazole 20 mg PO DAILY 10/17/16 [History] Prochlorperazine [Compazine] 10 mg PO Q6H PRN 10/17/16 [History] LORazepam [Ativan] 1 mg PO DAILY PRN 01/27/17 [History] Multivitamins, Thera [Multivitamin (formulary)] 1 tab PO DAILY 01/27/17 [History ] HYDROcodone/APAP 7.5-325MG [[place] 7.5-325] 1 tab PO Q4H PRN 02/02/17 [History] Lactulose 10 gm PO DAILY PRN 02/02/17 [History] Morphine Sulfate ER [Ms Contin] 15 mg PO Q12HR PRN 02/02/17 [History] Baclofen [Lioresal] 10 mg PO BID PRN #60 tab 02/08/17 [Rx] Ipratropium-Albuterol Nebulize [Duoneb 0.5 mg-3 mg/3 ml Soln] 3 ml INHALATION RT -QID PRN #120 ampul.neb 02/08/17 [Rx] Metoprolol Tartrate [Lopressor] 25 mg PO BID #60 tab 02/08/17 [Rx] Triamcinolone 0.5% Cream [Kenalog 0.5% Cream] 1 applic TOPICAL BID #30 gm [Rx] Follow up Appointment(s)/Referral(s): Altaf Sanchez MD [Primary Care Provider] - 1 Week Activity/Diet/Wound Care/Special Instructions: Notify Dr. Bahena if patient develops temperature greater than 101, redness or drainage at the incision site, Shortness of Breath, or intense pain at Catheter insertion site. resume [facility] Discharge Disposition: HOME SELF-CARE
== END 2017-02-08 14:25 | disposition home health service (06) | DRG 841 ==
LOC: EC 17:26 → 5MS5E 19:01 → 5ONC 02-05 12:58
PROVIDERS: ADMIT Internal Medicine Geriatric Medicine; ATTEND Internal Medicine Geriatric Medicine
PROC: 0B9N30Z Drainage of Right Pleura with Drainage Device, Percutaneous Approach (ICD-10-PCS; principal; 2017-02-04 09:00)
DX: C90.00 Multiple myeloma not having achieved remission (principal); J91.0 Malignant pleural effusion; I31.3 Pericardial effusion (noninflammatory); E87.1 Hypo-osmolality and hyponatremia; M84.58XA Pathological fracture in neoplastic disease, other specified site, initial encounter for fracture; G47.33 Obstructive sleep apnea (adult) (pediatric); E03.9 Hypothyroidism, unspecified; K21.9 Gastro-esophageal reflux disease without esophagitis; H91.90 Unspecified hearing loss, unspecified ear; E78.5 Hyperlipidemia, unspecified; N40.1 Benign prostatic hyperplasia with lower urinary tract symptoms; R33.8 Other retention of urine; G89.3 Neoplasm related pain (acute) (chronic); R00.0 Tachycardia, unspecified; D53.9 Nutritional anemia, unspecified; R09.02 Hypoxemia; K59.00 Constipation, unspecified; Z85.828 Personal history of other malignant neoplasm of skin; Z92.21 Personal history of antineoplastic chemotherapy; Z79.899 Other long term (current) drug therapy
CPT/HCPCS: 32551; 36415; 71010; 71020; 80053; 82550; 82553; 83735; 83880; 84484; 85025; 85379; 85610; 85730; 88108; 88305; 88342; 93005; 94640; 94660; 94760; 99291